=== PATIENT | female | born 1950 | race African-American/Black ===

== ENCOUNTER 2017-01-27 19:45 | Inpatient (IN) | payer MEDICARE, MEDICAID ==
[~2017-01-27] VITALS: Ht 165.1 cm; Wt 99.8 kg
[~2017-01-27 19:45] MED LIST: ASPIR 8181 MG ORAL; BENADRYL50 MG ORAL; CYCLOBENZAPRINE10 MG ORAL; DOCUSATE SODIU100 M2 ORAL; FLONASE1 SPRAYS NASAL; GABAPENTIN600 MG ORAL; GLIMEPIRIDE1 MG ORAL; HYDROCHLOROTHIA25 MG ORAL; LIPITOR40 MG ORAL; LISINOPRIL5 MG ORAL; METFORMIN HCL850 M1 ORAL; NAPROXEN500 M2 ORAL; NIFEDIPINE ER30 M2 ORAL; NORCO 10/3251 EA ORAL; OMEPRAZOLE40 M1 ORAL; QVAR7.3 GM INH
[2017-01-27] MEDS ORDERED: Morphine Sulfate 4mg/ml Inj IVP ONE (21:00)
[2017-01-27 21:47] VITALS: BP 173/77
[2017-01-27 22:28] LABS: MEAN CORPUSCULAR HEMOGLOBIN 27.9 PG (27.0-31.0); MEAN CORPUSCULAR HGB CONC 32.1 G/DL (32.0-36.0); MEAN CORPUSCULAR VOLUME 87 FL (80-99); RED BLOOD COUNT 4.95 M/UL (4.20-5.40); WHITE BLOOD COUNT 10.9 K/UL (4.8-10.8)
[2017-01-27 22:29] LABS: BASOPHILS % (AUTO) 1.4 % (0.0-2.0); EOSINOPHILS % (AUTO) 0.8 % (0.0-3.0); LYMPHOCYTES % (AUTO) 21.2 % (20.0-45.0); MEAN PLATELET VOLUME 8.6 FL (6.5-10.1); MONOCYTES % (AUTO) 6.7 % (1.0-10.0); PLATELET COUNT 227 K/UL (150-450); RED CELL DISTRIBUTION WIDTH 13.7 % (11.6-14.8)
[2017-01-27 22:30] VITALS: BP 166/76
[2017-01-27 22:40] LABS: APPEARANCE,URINE CLEAR; KETONES,URINE NEGATIVE (NEGATIVE); LEUKOCYTE ESTERASE ,URINE 1+ (NEGATIVE); NITRITE,URINE NEGATIVE (NEGATIVE); PH,URINE 6 (4.5-8.0); PROTEIN,URINE NEGATIVE (NEGATIVE); UROBILINOGEN,URINE NORMAL MG/DL (0.0-1.0)
[2017-01-27 22:42] LABS: SQUAMOUS EPITHELIAL CELL,UR OCCASIONAL /LPF (NONE/OCC); WBC,URINE 0 /HPF (0 - 2)
[2017-01-27 22:59] LABS: TROPONIN I < 0.30 ng/mL (<=0.30)
[2017-01-27 23:04] LABS: ALBUMIN/GLOBULIN RATIO 1.1 (1.0-2.7); CALCIUM 10.3 mg/dL (8.6-10.2); CREATININE 1.5 mg/dL (0.5-0.9); GLOMERULAR FILTRATION RATE 42.1 mL/min (>60); POTASSIUM 4.1 mEQ/L (3.4-4.9); TOTAL PROTEIN 8.1 g/dL (6.6-8.7)
[2017-01-28] VITALS (7 sets, daily range): BP systolic 124–167; BP diastolic 59–91
[2017-01-28] MEDS ORDERED: Morphine Sulfate 4mg/ml Inj IVP ONE (01:00)
--- NOTE | 2017-01-28 02:47 | Emergency Room Report ---
History of Present Illness General Chief Complaint: Abdominal Pain Source: Patient Present Illness HPI 66-year-old female presents ED complaining of abdominal pain. States symptoms started earlier today. Pain is on the left flank, radiating to the lower abdomen. Denies any dysuria or and fevers chills. Denies nausea or vomiting. Pain is sharp. 10 out of 10. No other aggravating relieving factors. Denies any other systemic symptom Allergies: Coded Allergies: DIAZEPAM (Verified Allergy, Mild, Itching, 10/28/15) DOBUTAMINE (Verified Allergy, Unknown, 10/28/15) Patient History Past Medical History: DM, asthma Past Surgical History: none Pertinent Family History: none Social History: Denies: alcohol use, drug use, smoking Now: No Immunizations: UTD Reviewed Nursing Documentation: PMH: Agreed, PSxH: Agreed Nursing Documentation-PMH Hx Cardiac Problems: No Hx Hypertension: Yes - hyperlipidemia Hx Asthma: Yes Hx Diabetes: Yes Hx Cancer: No Hx Gastrointestinal Problems: Yes Hx Neurological Problems: No Review of Systems All Other Systems: negative except mentioned in HPI Physical Exam Vital Signs Date Time Temp Pulse Resp B/P Pulse Ox O2 Delivery O2 Flow Rate FiO2 01/27/17 20:38 98.8 94 19 178/85 96 Room Air 01/28/17 00:30 2.0 Sp02 EP Interpretation: reviewed, normal General Appearance: no apparent distress, alert, GCS 15, non-toxic, obese Head: normocephalic, atraumatic Eyes: bilateral eye PERRL, bilateral eye normal inspection ENT: hearing grossly normal, normal pharynx, no angioedema, normal voice Neck: full range of motion, supple/symm/no masses Respiratory: chest non-tender, lungs clear, normal breath sounds, speaking full sentences Cardiovascular #1: regular rate, rhythm, no edema Cardiovascular #2: 2+ carotid (R), 2+ carotid (L), 2+ radial (R), 2+ radial (L) , 2+ dorsalis pedis (R), 2+ dorsalis pedis (L) Gastrointestinal: normal bowel sounds, soft, non-distended, no guarding, no rebound, tenderness Rectal: deferred Genitourinary: normal inspection, CVA tenderness (L) Musculoskeletal: back normal, gait/station normal, normal range of motion, non- tender Neurologic: alert, oriented x3, responsive, motor strength/tone normal, sensory intact, speech normal Psychiatric: judgement/insight normal, memory normal, mood/affect normal, no suicidal/homicidal ideation Reflexes: 3+ bicep (R), 3+ bicep (L), 3+ tricep (R), 3+ tricep (L), 3+ knee (R) , 3+ knee (L) Skin: normal color, no rash, warm/dry, well hydrated Lymphatic: no adenopathy Medical Decision Making Diagnostic Impression: Primary Impression: Kidney stone on left side Additional Impression: ARF (acute renal failure) Qualified Codes: N17.9 - Acute kidney failure, unspecified ER Course Hospital Course 66-year-old F presents to ED with L flank pain Differential diagnosis includes-appendicitis, cholecystitis, kidney stone, pyelonephritis Clinical course Patient placed on stretcher. After initial history and physical I ordered labs , IV fluids, pain medications and CT scan Labs - noted leukocytosis, Cr 1.5, LFTs normal CT scan shows 9mm stone on L with hydronephrosis/perinephric stranding Given pain meds, IVFs. patient admitted to Dr Daniel I feel this is a highly complex case requiring extensive working including EKG/ Rhythm strip, Xray/CT/US, Blood/urine lab work, repeat exams while in ED, and administration of strong opiates/narcotics for pain control, admission to hospital or close patient follow up. Diagnosis - kidney stone on left side. ARF admitted to floor in serious condition Labs Test 01/27/17 21:55 01/27/17 21:58 White Blood Count 10.9 K/UL (4.8-10.8) Red Blood Count 4.95 M/UL (4.20-5.40) Hemoglobin 13.8 G/DL (12.0-16.0) Hematocrit 43.1 % (37.0-47.0) Mean Corpuscular Volume 87 FL (80-99) Mean Corpuscular Hemoglobin 27.9 PG (27.0-31.0) Mean Corpuscular Hemoglobin Concent 32.1 G/DL (32.0-36.0) Red Cell Distribution Width 13.7 % (11.6-14.8) Platelet Count 227 K/UL (150-450) Mean Platelet Volume 8.6 FL (6.5-10.1) Neutrophils (%) (Auto) 70.0 % (45.0-75.0) Lymphocytes (%) (Auto) 21.2 % (20.0-45.0) Monocytes (%) (Auto) 6.7 % (1.0-10.0) Eosinophils (%) (Auto) 0.8 % (0.0-3.0) Basophils (%) (Auto) 1.4 % (0.0-2.0) Sodium Level 139 mEQ/L (135-145) Potassium Level 4.1 mEQ/L (3.4-4.9) Chloride Level 95 mEQ/L (98-107) Carbon Dioxide Level 26 mEQ/L (20-30) Anion Gap 18 (5-15) Blood Urea Nitrogen 15 mg/dL (7-23) Creatinine 1.5 mg/dL (0.5-0.9) Estimat Glomerular Filtration Rate 42.1 mL/min (>60) Glucose Level 99 mg/dL (74-106) Calcium Level 10.3 mg/dL (8.6-10.2) Total Bilirubin 0.5 mg/dL (0.0-1.2) Aspartate Amino Transf (AST/SGOT) 16 U/L (5-40) Alanine Aminotransferase (ALT/SGPT) 14 U/L (3-33) Alkaline Phosphatase 63 U/L (35-104) Troponin I < 0.30 ng/mL (<=0.30) Total Protein 8.1 g/dL (6.6-8.7) Albumin 4.3 g/dL (3.5-5.2) Globulin 3.8 g/dL Albumin/Globulin Ratio 1.1 (1.0-2.7) Lipase 24 U/L (< 60) Urine Color Yellow Urine Appearance Clear Urine pH 6 (4.5-8.0) Urine Specific [place] 1.010 (1.005-1.035) Urine Protein Negative (NEGATIVE) Urine Glucose (UA) Negative (NEGATIVE) Urine Ketones Negative (NEGATIVE) Urine Occult Blood 2+ (NEGATIVE) Urine Nitrite Negative (NEGATIVE) Urine Bilirubin Negative (NEGATIVE) Urine Urobilinogen Normal MG/DL (0.0-1.0) Urine Leukocyte Esterase 1+ (NEGATIVE) Urine RBC 2-4 /HPF (0 - 2) Urine WBC 0 /HPF (0 - 2) Urine Squamous Epithelial Cells Occasional /LPF Urine Bacteria None /HPF (NONE) CT/MRI/US Diagnostic Results CT/MRI/US Diagnostic Results : Imaging Test Ordered: CT A/P Impression Moderate left-sided hydronephrosis and perinephric stranding. A 9 mm stone is seen at the left UPJ Last Vital Signs Date Time Temp Pulse Resp B/P Pulse Ox O2 Delivery O2 Flow Rate FiO2 01/28/17 01:31 98.7 01/28/17 00:30 93 15 153/59 98 Nasal Cannula 2.0 Status: improved Disposition: ADMITTED INPATIENT Condition: Serious Referrals: OCTAVIO KAHN (PCP) BENJA MERCEDES M.D. Jan 28, 2017 02:47
[2017-01-28] MEDS ORDERED: 1/2NS w/KCl 20mEq 1000ml 1,000 ML IV SCH (05:30)
[2017-01-28] MEDS ORDERED: Acetaminophen 500mg (ES) tab ORAL PRN (05:30)
[2017-01-28] MEDS: Glimepiride 1mg tab ORAL SCH (06:15)
[2017-01-28] MEDS: Norco 10mg/325mg tab ORAL PRN ×3 (06:55→19:19)
[2017-01-28] MEDS ORDERED: Potassium Chloride 30 MEQ in 1/2 NS 1000ml 1,000 ML IV SCH (07:30)
[2017-01-28] MEDS: Potassium Chloride 30 MEQ in 1/2 NS 1000ml 1,000 ML IV SCH ×2 (07:49→23:05)
[2017-01-28] MEDS ORDERED: Aspirin EC 325mg tab ORAL SCH (09:00)
[2017-01-28] MEDS: Flonase Nasal Inhaler 16gm NASAL SCH (09:00)
[2017-01-28] MEDS ORDERED: Flonase Nasal Inhaler 16gm NASAL SCH (09:00)
[2017-01-28] MEDS: Docusate 100mg tablet ORAL SCH (09:08)
[2017-01-28] MEDS: Lisinopril 2.5mg tab ORAL SCH (09:09)
[2017-01-28] MEDS: Heparin 5000 units/ml inj SUBQ SCH ×2 (09:14→20:06)
--- NOTE | 2017-01-28 12:01 | Diagnostic Imaging Report ---
Indication: Abdominal pain Technique: Spiral acquisitions obtained through the abdomen and pelvis. No oral contrast utilized, per emergency room physician request No IV contrast utilized, per referring physician request.. Multiplanar reconstructions were generated. Total dose length product 993 mGycm. CTDIvol(s) 18 mGy Comparison: None Findings: There is a left hip prosthesis, streak artifact from which could obscure pathology in the pelvis. Exam is limited by lack of oral and IV contrast. There is a 9 mm calculus at the left ureteropelvic junction. There is resultant mild to moderate left hydronephrosis and slight infiltration of the perinephric fat. Multiple intrarenal calculi are also demonstrated, largest having a long axis dimension of 12 mm. The distal left ureter is nondilated, and no distal intraureteral calculi are demonstrated. There are small calculi within the right kidney is well, measuring up to 3 mm diameter. No right hydronephrosis, ureteral calculi, or hydroureter. Lack of IV contrast limits assessment of the renal parenchyma. No gross renal parenchymal mass or cyst demonstrated. The bladder is unremarkable. Lack of IV contrast limits assessment of solid organs. The liver is mildly hypoattenuating, consistent with fatty change. No focal abnormality. The gallbladder is surgically absent. Bile ducts are nondilated. The pancreas, spleen, adrenals are unremarkable. No retroperitoneal or mesenteric mass or adenopathy. The uterus is diffusely bulky, likely representing fibroid changes. No pelvic mass or adenopathy otherwise. No evidence of diverticulosis or diverticulitis. The appendix is not definitely visualized, but there are no findings to suggest acute appendicitis. No small bowel distention. There is a broad-based ventral hernia. There is some scarring along an incision to the umbilicus. There is a small sliding-type hiatal hernia. Broad-based ventral hernia, associated incisional scarring Small sliding-type hiatal hernia the graft at the left lung base, there is a 9 mm nodule which is incompletely visualized. There are atelectatic changes at both lung bases. The heart is enlarged. There is a small pericardial effusion Impression: Positive for 9 mm left ureteropelvic junction calculus, with resultant mild/moderate hydronephrosis and swelling of the left kidney Bilateral intrarenal calculi, larger on the left than on the right 9 mm left lung nodule, incompletely imaged. Recommend followup with chest CT Cardiomegaly Pericardial effusion Fatty liver Left hip prosthesis Bilateral basilar pulmonary parenchymal atelectatic changes Evidence of prior cholecystectomy Fibroid uterus This agrees with the preliminary interpretation provided overnight by [facility] teleradiology service. The CT scanner at [facility] is accredited by the [employer] and the scans are performed using protocols designed to limit radiation exposure to as low as reasonably achievable to attain images of sufficient resolution adequate for diagnostic evaluation.
--- NOTE | 2017-01-28 22:28 | History and Physical Report ---
DATE OF ADMISSION: 01/28/2017 CHIEF COMPLAINT: Abdominal pain. HISTORY OF PRESENT ILLNESS: This is a 66-year-old, female, who came to the ER complaining of severe abdominal pain. PAST MEDICAL HISTORY: 1. Type 2 diabetes mellitus. 2. Chronic obstructive pulmonary disease. 3. Chronic low back pain. 4. Peripheral neuropathy. 5. Hypertensive cardiovascular disease. 6. Left lung nodule. MEDICATIONS: She is on baby aspirin, atorvastatin, beclomethasone, sodium docusate, fluticasone spray, Neurontin, glimepiride, hydrochlorothiazide, [place], lisinopril, nifedipine ER, and omeprazole. ALLERGIES: To diazepam and dobutamine. FAMILY HISTORY: Unremarkable. SOCIAL HISTORY: She lives at home. Habits, she is nonsmoker and nondrinker. There is no history of illicit drug abuse. REVIEW OF SYSTEMS: HEENT: Hearing and eyesight are normal. Endocrine: She has obesity and type 2 diabetes mellitus. Respiratory: She has chronic obstructive pulmonary disease. Neurological: No history of stroke, syncope, or Parkinson disease. PHYSICAL EXAMINATION: GENERAL: This is an elderly obese, female, who is in no acute distress. VITAL SIGNS: Blood pressure 148/60, pulse 87 and regular, respirations 20, temperature 96.8 degrees, O2 saturation 94% on room air. HEENT: The head is normocephalic and atraumatic. Pupils are equal, round, and reactive to light and accommodation consensually. NECK: Supple. Trachea is midline. There was no lymphadenopathy or thyromegaly. LUNGS: Clear to auscultation and percussion. HEART: Regular rate and rhythm without rubs, murmurs, or gallops. ABDOMEN: Soft. Bowel sounds are active. EXTREMITIES: No clubbing, cyanosis, or edema. NEUROLOGIC: She is alert and oriented x4. Cranial nerves II through XII are intact. LABORATORY AND ANCILLARY DATA: CBC within normal limits. Serum chemistry, creatinine 1.5, BUN 15, otherwise within normal limits and glucose is 99. IMAGING STUDIES: A CAT scan of the abdomen and pelvis without contrast shows a 9 mm left ureteropelvic junction calculus with mild to moderate hydronephrosis and swelling of the left kidney, bilateral intrarenal calculi largely on the left than on the right, 9 mm left lung nodule incompletely , cardiomegaly, pericardial effusion, fatty liver, and left hip prosthesis. ASSESSMENT: 1. Left renal calculus with mild hydronephrosis. 2. Type 2 diabetes mellitus. 3. Chronic obstructive pulmonary disease. 4. Chronic low back pain. 5. Peripheral neuropathy. 6. Hypertensive cardiovascular disease. 7. Left lung nodule. PLAN: 1. Intravenous fluid. 2. Rehydration. 3. Pain control. 4. Urology consult. Nieves Nielsen M.D. DR: REYNALDO JOB#: [id number] CC:
[2017-01-28] MEDS: Qvar 40mcg Inhaler 6.8 gm INH SCH (22:39)
[2017-01-28] MEDS: Budesonide HHN 0.25mg/2ml ud HHN SCH (22:53)
[2017-01-28 23:53] LABS: APPEARANCE,URINE CLEAR; KETONES,URINE NEGATIVE (NEGATIVE); NITRITE,URINE NEGATIVE (NEGATIVE); PH,URINE 6 (4.5-8.0); PROTEIN,URINE NEGATIVE (NEGATIVE); UROBILINOGEN,URINE NORMAL MG/DL (0.0-1.0)
[2017-01-29] MEDS: Norco 10mg/325mg tab ORAL PRN ×5 (00:08→23:59)
[2017-01-29 00:20] LABS: LEUKOCYTE ESTERASE ,URINE 2+ (NEGATIVE)
[2017-01-29 00:26] LABS: BACTERIA,URINE MODERATE /HPF; RBC,URINE 0-2 /HPF (0 - 2); SQUAMOUS EPITHELIAL CELL,UR FEW /LPF (NONE/OCC)
[2017-01-29 00:35] VITALS: BP 137/74
--- NOTE | 2017-01-29 02:38 | Consultation ---
DATE OF CONSULTATION: 01/28/2017 CONSULTING PHYSICIAN: Aly Perez M.D. REFERRING PHYSICIAN: Nieves Nielsen M.D. REASON FOR CONSULTATION: For evaluation of renal colic, obstructive stone, and bladder tumor. HISTORY OF PRESENT ILLNESS: This is a 66-year-old female. She came to the hospital because of left-sided abdominal pain. She had a workup including a CT scan, which showed evidence of an obstructive stone in the left proximal ureter with hydronephrosis. Urology evaluation is requested. Of note, she does have a urologist that she sees as an outpatient and apparently a recent cystoscopy in the office revealed possible tumor in the bladder. The patient states that she is scheduled for a bladder biopsy in the near future. PAST MEDICAL HISTORY: Significant for history of nephrolithiasis, history of hyperlipidemia, asthma, diabetes, and gastroesophageal reflux disease. PAST SURGICAL HISTORY: Unknown. CURRENT MEDICATIONS: In the hospital, the patient is on Pulmicort, heparin, aspirin, Lipitor, Colace, Neurontin, hydrochlorothiazide, Zestril, Procardia, Flonase, Amaryl, acetaminophen, Dilaudid, and Zofran. ALLERGIES: Diazepam and dobutamine. SOCIAL HISTORY: She is currently nonsmoker. FAMILY HISTORY: Noncontributory. REVIEW OF SYSTEMS: As above. PHYSICAL EXAMINATION: GENERAL: This is an elderly female, obese, in mild distress. VITAL SIGNS: Temperature is 96.1 degrees, blood pressure is 124/77, pulse 70, and respirations are 19. HEENT: Normocephalic. She is missing multiple teeth. NECK: Supple. ABDOMEN: Soft. BACK: No CVA tenderness. EXTREMITIES: No clubbing or cyanosis. LABORATORY DATA: UA shows 2 to 4 RBCs, white count 10.9, hemoglobin 13.8, and platelets are 227,000. BUN is 15, creatinine 1.1, and potassium 4.1. DIAGNOSTIC IMAGING STUDIES: The patient has CT scan of the abdomen and pelvis. The films were reviewed. There was basically a 9 mm left ureteropelvic junction stone with [id number] left-sided hydronephrosis. There were also multiple other bilateral renal calculi, which were larger on the left side. There was mention of a lung nodule. The bladder was reported to be normal. IMPRESSION: 1. Nephrolithiasis with colic. 2. Left-sided hydronephrosis. 3. Mild acute kidney injury. 4. Hematuria. 5. History of bladder tumor. PLAN AND DISCUSSION: Again as noted above, the patient does have significant renal colic on the left side with an obstructive stone and hydronephrosis. The stone is very large size and I do not believe she will pass the stone. I believe she will need to have placement of a stent with lithotripsy in the near future. She also has a history of bladder tumor and I will discuss this with her outside urologist, . She probably needs to have a bladder biopsy. At this time, I will discontinue the aspirin so that we will be ready for the surgery if needed. She states that she has not been taking aspirin at home for about a week or so also. I will follow the patient and any other recommendation will be forthcoming. Thank you, Dr. Nielsen, for asking me to see this patient in consultation. Aly Perez M.D. DR: Jason JOB#: [id number] CC:
[2017-01-29 04:00] VITALS: BP 148/76
[2017-01-29] MEDS: Glimepiride 1mg tab ORAL SCH (06:04)
[2017-01-29 07:44] LABS: CALCIUM 10.1 mg/dL (8.6-10.2); CREATININE 1.6 mg/dL (0.5-0.9); GLOMERULAR FILTRATION RATE 38.9 mL/min (>60); POTASSIUM 3.8 mEQ/L (3.4-4.9); URIC ACID 7.1 mg/dL (3.0-7.5)
[2017-01-29 07:53] VITALS: BP 127/77
[2017-01-29] MEDS: Flonase Nasal Inhaler 16gm NASAL SCH (09:00)
[2017-01-29] MEDS: Heparin 5000 units/ml inj SUBQ SCH ×2 (09:00→20:28)
[2017-01-29] MEDS: Docusate 100mg tablet ORAL SCH (09:10)
[2017-01-29] MEDS: Lisinopril 2.5mg tab ORAL SCH (09:11)
[2017-01-29] MEDS: Budesonide HHN 0.25mg/2ml ud HHN SCH ×2 (09:22→19:42)
--- NOTE | 2017-01-29 09:26 | Anethesia Preoperative Eval ---
Anesthesia Pre-op PMH/ROS General Date of Evaluation: Jan 29, 2017 Time of Evaluation: 09:00 Anesthesiologist: Johnnie ASA Score: ASA 3 Mallampati Score Class I : Soft palate, uvula, fauces, pillars visible Class II: Soft palate, uvula, fauces visible Class III: Soft palate, base of uvula visible Class IV: Only hard plate visible Mallampati Classification: Class II Surgeon: Ana Diagnosis: right ureteral stone Surgical Procedure: Right cystoscopy, ureteroscopy, stent placement Anesthesia History: none Family History: no anesthesia problems Allergies: Coded Allergies: DIAZEPAM (Verified Allergy, Mild, Itching, 10/28/15) DOBUTAMINE (Verified Allergy, Unknown, 10/28/15) Medications: see eMAR Past Medical History Cardiovascular: Reports: HTN, other - HLD Pulmonary: Reports: COPD, asthma Gastrointestinal/Genitourinary: Reports: CRI, GERD Endocrine: Reports: DM Musculoskeletal/Integumentary: Reports: OA Other: obesity PSxH Narrative: hiatal hernia repair, left hip arthroplasty, thyroidectomy Anesthesia Pre-op Phys. Exam Physician Exam Last Vital Signs Date Time Temp Pulse Resp B/P Pulse Ox O2 Delivery O2 Flow Rate FiO2 01/29/17 09:11 127/77 01/29/17 09:10 77 01/29/17 07:53 97.3 20 98 Room Air 01/28/17 22:57 2.0 Constitutional: NAD Cardiovascular: RRR Respiratory: CTA Airway Exam Mallampati Score: Class II Anesthesia Pre-op A/P Labs Chemistry Test 01/29/17 05:45 Sodium Level 138 mEQ/L (135-145) Potassium Level 3.8 mEQ/L (3.4-4.9) Chloride Level 95 mEQ/L (98-107) L Carbon Dioxide Level 26 mEQ/L (20-30) Anion Gap 17 (5-15) H Blood Urea Nitrogen 19 mg/dL (7-23) Creatinine 1.6 mg/dL (0.5-0.9) H Estimat Glomerular Filtration Rate 38.9 mL/min (>60) Glucose Level 107 mg/dL (74-106) H Uric Acid 7.1 mg/dL (3.0-7.5) Calcium Level 10.1 mg/dL (8.6-10.2) Studies Pre-op Studies: EKG - pending Risk Assessment & Plan Assessment: ASA III Plan: GA Status Change Before Surgery: No Pre-Antibiotics Drug: ROSS KAT M.D. Jan 29, 2017 09:26
--- NOTE | 2017-01-29 10:40 | Urology Progress Note ---
Assessment/Plan Assessment/Plan 1. Nephrolithiasis with colic. 2. Left-sided hydronephrosis. 3. Mild acute kidney injury. 4. Hematuria. 5. History of bladder tumor. d/w pt fully unlikely to pass stone plan cysto/stent/litho tomorrow risks etc pt may need multiple procedures given heavy stone burden NPO post midnight Subjective Allergies: Coded Allergies: DIAZEPAM (Verified Allergy, Mild, Itching, 10/28/15) DOBUTAMINE (Verified Allergy, Unknown, 10/28/15) Subjective all noted, feels fair, still with pain, case was d/w Dr. Hutchison, very small bladder lesion with recent cysto Objective Last 24 Hour Vital Signs Date Time Temp Pulse Resp B/P Pulse Ox O2 Delivery O2 Flow Rate FiO2 01/29/17 10:27 97.3 01/29/17 09:32 75 18 99 Nasal Cannula 2.0 01/29/17 09:22 72 18 92 Nasal Cannula 2.0 28 01/29/17 09:11 127/77 01/29/17 09:10 77 127/77 01/29/17 08:09 Nasal Cannula 2.0 28 01/29/17 08:09 92 Nasal Cannula 2.0 28 01/29/17 08:09 72 18 Nasal Cannula 2.0 28 01/29/17 07:53 97.3 77 20 127/77 98 Room Air 01/29/17 06:03 97.5 01/29/17 04:00 97.9 84 19 148/76 97 Nasal Cannula 01/29/17 00:35 97.5 73 19 137/74 92 Nasal Cannula 01/28/17 22:57 Nasal Cannula 2.0 01/28/17 22:56 97 Nasal Cannula 2.0 01/28/17 22:52 72 18 99 Nasal Cannula 2.0 01/28/17 22:51 70 18 95 Nasal Cannula 2.0 01/28/17 22:44 Room Air 01/28/17 22:42 81 18 95 Room Air 01/28/17 22:41 85 18 Room Air 01/28/17 20:00 97.9 86 19 148/80 94 Room Air 01/28/17 15:58 96.1 70 19 124/77 96 Nasal Cannula 2.0 01/28/17 12:40 96.8 87 19 148/68 94 Room Air Intake and Output 01/28/17 01/29/17 19:00 07:00 Intake Total 360 ml 695 ml Output Total 320 ml Balance 40 ml 695 ml Intake Oral 360 ml 240 ml IV Total 455 ml Output Urine Total 320 ml # Voids 2 4 Current Medications Medications (Trade) Dose Ordered Sig/Adrien Route PRN Reason Start Time Stop Time Status Last Admin Dose Admin Acetaminophen (Tylenol) 500 mg Q6H PRN ORAL Mild Pain/Temp > 100.5 01/28/17 05:30 02/27/17 05:29 Acetaminophen/ Hydrocodone Bitart ([place] 10/325) 1 ea Q4H PRN ORAL For Pain 01/28/17 05:30 02/04/17 05:29 01/29/17 04:58 Albuterol Sulfate (Proventil) 2.5 mg Q4HRT N 01/29/17 11:00 02/03/17 10:59 Atorvastatin Calcium (Lipitor) 40 mg DAILY ORAL 01/28/17 09:00 02/27/17 08:59 01/29/17 09:10 Beclomethasone Dipropionate (Qvar 40 Inhaler) 1 puff BEDTIME INH 01/28/17 21:00 02/27/17 20:59 Budesonide (Pulmicort) 0.25 mg EVERY 12 HOURS N 01/28/17 21:00 02/27/17 20:59 01/29/17 09:22 Docusate Sodium (Colace) 100 mg DAILY ORAL 01/28/17 09:00 02/27/17 08:59 01/29/17 09:10 Fluticasone Propionate 1 spray 1 spray DAILY NASAL 01/28/17 09:00 02/27/17 08:59 Gabapentin (Neurontin) 600 mg THREE TIMES A DAY ORAL 01/28/17 09:00 02/27/17 08:59 01/29/17 09:11 Glimepiride (Amaryl) 1 mg BEFORE BREAKFAST ORAL 01/28/17 06:30 02/27/17 06:29 01/29/17 06:04 Heparin Sodium (Porcine) (Heparin 5000 units/ml) 5,000 units EVERY 12 HOURS SUBQ 01/28/17 09:00 02/27/17 08:59 01/28/17 20:06 Hydrochlorothiazide (Hydrodiuril) 25 mg DAILY ORAL 01/28/17 09:00 02/27/17 08:59 01/29/17 09:11 Hydromorphone HCl (Dilaudid) 1 mg Q6H PRN IVP Severe Pain (Pain Scale 7-10) 01/28/17 05:30 02/04/17 05:29 Lisinopril (Zestril) 5 mg DAILY ORAL 01/28/17 09:00 02/27/17 08:59 01/29/17 09:11 Nifedipine (Procardia XL) 30 mg DAILY ORAL 01/28/17 09:00 02/27/17 08:59 01/29/17 09:10 Ondansetron HCl (Zofran) 4 mg Q6H PRN IVP Nausea & Vomiting 01/28/17 05:30 02/27/17 05:29 Potassium Chloride/Sodium Chloride (KCl/0.45% NS 1000ml) 1,015 ml @ 65 mls/hr [id number] IV 01/28/17 08:00 02/27/17 07:59 01/28/17 23:05 Laboratory Tests 01/28/17 21:00: Urine Color Pale yellow, Urine Appearance Clear, Urine pH 6, Urine Specific [place] 1.010, Urine Protein Negative, Urine Glucose (UA) Negative, Urine Ketones Negative, Urine Occult Blood 1+H, Urine Nitrite Negative, Urine Bilirubin Negative, Urine Urobilinogen Normal, Urine Leukocyte Esterase 2+H, Urine RBC 0-2, Urine WBC 10-15H, Urine Squamous Epithelial Cells Few, Urine Bacteria ModerateH 01/29/17 05:45: Sodium Level 138, Potassium Level 3.8, Chloride Level 95L, Carbon Dioxide Level 26, Anion Gap 17H, Blood Urea Nitrogen 19, Creatinine 1.6H, Estimat Glomerular Filtration Rate 38.9, Glucose Level 107H, Uric Acid 7.1, Calcium Level 10.1 Height (Feet): 5 Height (Inches): 5.00 Weight (Pounds): 222 SANYA PIERSON Jan 29, 2017 10:40
[2017-01-29] MEDS: Albuterol ud Inhalation HHN SCH ×4 (10:50→23:23)
--- NOTE | 2017-01-29 10:52 | Diagnostic Imaging Report ---
Indication: Cough Technique: One view of the chest Comparison: none Findings: The heart is enlarged. Atelectasis and possibly some consolidation is seen in the left lower lobe. Pleural spaces are clear. Right lung is clear. Impression: Left lower lobe atelectasis and possibly some consolidation. Cardiomegaly
[2017-01-29 12:22] VITALS: BP 137/73
--- NOTE | 2017-01-29 14:07 | Nephrology Progress Note ---
Assessment/Plan Plan L RenaL Colic -for Cysto in AM By Dr Perez. Symptoms Resolving with IVF + Pain Control Subjective Subjective No new c/o Objective Objective Last 24 Hour Vital Signs Date Time Temp Pulse Resp B/P Pulse Ox O2 Delivery O2 Flow Rate FiO2 01/29/17 13:51 97.9 01/29/17 13:51 97.9 01/29/17 12:22 97.9 77 19 137/73 95 Room Air 01/29/17 11:05 85 18 99 Nasal Cannula 2.0 28 01/29/17 10:55 83 18 95 Room Air 01/29/17 10:55 28 01/29/17 09:32 75 18 99 Nasal Cannula 2.0 01/29/17 09:22 72 18 92 Nasal Cannula 2.0 28 01/29/17 09:11 127/77 01/29/17 09:10 77 127/77 01/29/17 08:09 Nasal Cannula 2.0 28 01/29/17 08:09 92 Nasal Cannula 2.0 28 01/29/17 08:09 72 18 Nasal Cannula 2.0 28 01/29/17 07:53 97.3 77 20 127/77 98 Room Air 01/29/17 04:00 97.9 84 19 148/76 97 Nasal Cannula 01/29/17 00:35 97.5 73 19 137/74 92 Nasal Cannula 01/28/17 22:57 Nasal Cannula 2.0 01/28/17 22:56 97 Nasal Cannula 2.0 01/28/17 22:52 72 18 99 Nasal Cannula 2.0 01/28/17 22:51 70 18 95 Nasal Cannula 2.0 01/28/17 22:44 Room Air 01/28/17 22:42 81 18 95 Room Air 01/28/17 22:41 85 18 Room Air 01/28/17 20:00 97.9 86 19 148/80 94 Room Air 01/28/17 15:58 96.1 70 19 124/77 96 Nasal Cannula 2.0 Intake and Output 01/28/17 01/29/17 19:00 07:00 Intake Total 360 ml 695 ml Output Total 320 ml Balance 40 ml 695 ml Intake Oral 360 ml 240 ml IV Total 455 ml Output Urine Total 320 ml # Voids 2 4 Laboratory Tests 01/28/17 21:00: Urine Color Pale yellow, Urine Appearance Clear, Urine pH 6, Urine Specific [place] 1.010, Urine Protein Negative, Urine Glucose (UA) Negative, Urine Ketones Negative, Urine Occult Blood 1+H, Urine Nitrite Negative, Urine Bilirubin Negative, Urine Urobilinogen Normal, Urine Leukocyte Esterase 2+H, Urine RBC 0-2, Urine WBC 10-15H, Urine Squamous Epithelial Cells Few, Urine Bacteria ModerateH 01/29/17 05:45: Sodium Level 138, Potassium Level 3.8, Chloride Level 95L, Carbon Dioxide Level 26, Anion Gap 17H, Blood Urea Nitrogen 19, Creatinine 1.6H, Estimat Glomerular Filtration Rate 38.9, Glucose Level 107H, Uric Acid 7.1, Calcium Level 10.1 Height (Feet): 5 Height (Inches): 5.00 Weight (Pounds): 222 Objective Cv RR Lungs CTA Abd SNT. BS+ E No CCE OCTAVIO KAHN Jan 29, 2017 14:07
--- NOTE | 2017-01-29 14:28 | Consultation ---
DATE OF CONSULTATION: 01/29/2017 PULMONARY CONSULTATION CONSULTING PHYSICIAN: Isra Conn M.D. REASON FOR CONSULTATION: Asthma/COPD. HISTORY OF PRESENT ILLNESS: This is a 66-year-old female, presented to the emergency room with severe abdominal pain. The patient was noted to have kidney stone, significant obstruction. The patient now under the care of Dr. Nielsen, who has currently evaluated and recommended further. The patient does complain of some shortness of breath, chest tightness and overall discomfort. The patient is well known to me, was recently seen in office. The patient does have multiple medical problems, has had history of PET positive one nodule. The patient has undergone lung biopsy in 2016, which revealed conclusive. The patient also been treated for asthma. She does not complain of any sputum production at this time. No fever or chills. Medical notes have been reviewed. The care discussed with the primary admitting doctor. PAST MEDICAL HISTORY: The patient's past medical history notable for diabetes, anxiety, hypertension, hypercholesterolemia, history of CO, back in 2009, arthritis, chronic pain syndrome, asthma, stress test done in 2011. The patient also has had prior thyroid surgery, appendectomy, tonsillectomy, hernia repair, hip replacement and lung biopsy. SOCIAL HISTORY: The patient is . She lives alone. She did have three children. The patient is a former smoker and none currently. REVIEW OF SYSTEMS: Otherwise negative with the exception of the above. PHYSICAL EXAMINATION: GENERAL: A well developed female, comfortable and alert. The patient with poor dentition and missing teeth. VITAL SIGNS: Temperature 97.3 degrees, pulse 77, respiration 20, blood pressure 127/77 and saturation 98%. HEENT: Overall negative, otherwise oropharynx is clear. No thrush. NECK: No jugular venous distention. LUNGS: Good air entry. No scattered wheezes. CARDIAC: Normal S1 and S2. Regular, rate, and rhythm. Soft systolic murmur, left parasternal border. No rubs or gallops. ABDOMEN: Soft and nontender. No flank tenderness. EXTREMITIES: No cyanosis or clubbing. There is trace edema. NEUROLOGIC: Grossly nonfocal. LABORATORY AND DIAGNOSTIC DATA: Laboratory reviewed. CBC today with normal white cell count of 10.9. Electrolytes, very normal creatinine 1.6, blood sugar is 107. Imaging noted and reviewed. The abdominal CT that was done is notable for 9 mm ureteropelvic junction calculus with hydronephrosis. IMPRESSION: 1. Renal stone with associated hydronephrosis, associated flank pain. 2. Asthma, clinically stable. 3. Mild chest tightness and cough. 4. Chronic rhinitis. 5. Hypercholesterolemia. RECOMMENDATIONS: Medications noted and reviewed. The patient is getting Pulmicort nebulized twice a day, we will give additional albuterol and continue with inhaler, QVAR at bedtime. I will follow clinically and recommend oxygen therapy and assess for operative need. Isra Conn M.D. DR: Errol JOB#: [id number] CC: KENNA
[2017-01-29 16:10] VITALS: BP 128/78
[2017-01-29] MEDS: Potassium Chloride 30 MEQ in 1/2 NS 1000ml 1,000 ML IV SCH (16:15)
[2017-01-29] MEDS: Cefepime HCl 1 GM in D5W 55 ML IVPB SCH (16:15)
[2017-01-29] MEDS: Qvar 40mcg Inhaler 6.8 gm INH SCH (20:02)
[2017-01-29 20:21] VITALS: BP 140/78
[2017-01-29] MEDS: Zolpidem 5mg tab ORAL PRN (21:57)
[2017-01-30] VITALS (14 sets, daily range): BP systolic 114–152; BP diastolic 57–75
[2017-01-30] MEDS: Albuterol ud Inhalation HHN SCH ×5 (02:57→20:03)
[2017-01-30] MEDS: Potassium Chloride 30 MEQ in 1/2 NS 1000ml 1,000 ML IV SCH ×2 (05:41→22:28)
[2017-01-30] MEDS: Norco 10mg/325mg tab ORAL PRN ×2 (05:41→09:33)
[2017-01-30] MEDS: Glimepiride 1mg tab ORAL SCH (06:30)
[2017-01-30] MEDS: Budesonide HHN 0.25mg/2ml ud HHN SCH ×2 (08:11→21:00)
[2017-01-30] MEDS: Heparin 5000 units/ml inj SUBQ SCH (09:00)
[2017-01-30] MEDS: Cefepime HCl 1 GM in D5W 55 ML IVPB SCH (09:27)
[2017-01-30] MEDS: Flonase Nasal Inhaler 16gm NASAL SCH (09:28)
[2017-01-30] MEDS: Docusate 100mg tablet ORAL SCH (09:29)
[2017-01-30] MEDS: Lisinopril 2.5mg tab ORAL SCH (09:30)
--- NOTE | 2017-01-30 11:27 | Urology Progress Note ---
Assessment/Plan Assessment/Plan 1. Nephrolithiasis with colic. 2. Left-sided hydronephrosis. 3. Mild acute kidney injury. 4. Hematuria. 5. History of bladder tumor. d/w pt fully unlikely to pass stone plan cysto/stent/litho today risks etc pt may need multiple procedures given heavy stone burden NPO Subjective Allergies: Coded Allergies: DIAZEPAM (Verified Allergy, Mild, Itching, 10/28/15) DOBUTAMINE (Verified Allergy, Unknown, 10/28/15) Subjective all noted, feels fair, still with pain, plan OR today Objective Last 24 Hour Vital Signs Date Time Temp Pulse Resp B/P Pulse Ox O2 Delivery O2 Flow Rate FiO2 01/30/17 11:17 78 16 95 Nasal Cannula 2.0 28 01/30/17 09:30 134/64 01/30/17 09:29 74 134/64 01/30/17 08:28 86 18 99 Nasal Cannula 2.0 01/30/17 08:19 80 18 98 Nasal Cannula 2.0 28 01/30/17 08:10 97.5 68 18 118/67 95 Nasal Cannula 2.0 01/30/17 08:08 Nasal Cannula 2.0 28 01/30/17 08:08 94 Nasal Cannula 2.0 28 01/30/17 08:08 72 16 94 Nasal Cannula 2.0 28 01/30/17 08:08 72 18 Nasal Cannula 2.0 28 01/30/17 04:00 97.7 74 18 125/65 97 Nasal Cannula 2.0 01/30/17 03:05 79 14 99 Nasal Cannula 2.0 28 01/30/17 02:59 28 01/30/17 02:57 70 16 94 Nasal Cannula 2.0 28 01/30/17 00:00 97.4 71 18 142/60 97 Room Air 01/29/17 23:43 83 18 99 Nasal Cannula 2.0 28 01/29/17 23:23 86 18 96 Nasal Cannula 2.0 28 01/29/17 23:23 28 01/29/17 20:21 98.1 86 18 140/78 93 Room Air 01/29/17 19:48 86 18 99 Nasal Cannula 2.0 01/29/17 19:43 84 18 99 Nasal Cannula 2.0 28 01/29/17 19:42 84 18 99 Nasal Cannula 2.0 28 01/29/17 19:35 28 01/29/17 19:34 83 18 92 Nasal Cannula 2.0 28 01/29/17 19:34 Nasal Cannula 2.0 28 01/29/17 19:34 92 Nasal Cannula 2.0 28 01/29/17 19:32 83 18 Nasal Cannula 2.0 28 01/29/17 16:10 98.1 90 19 128/78 92 Room Air 01/29/17 15:11 85 18 99 Nasal Cannula 2.0 28 01/29/17 15:11 28 01/29/17 15:11 83 18 95 Room Air 01/29/17 13:51 97.9 01/29/17 13:51 97.9 01/29/17 12:22 97.9 77 19 137/73 95 Room Air Intake and Output 01/29/17 01/30/17 19:00 07:00 Intake Total 880 ml 990 ml Balance 880 ml 990 ml Intake Oral 240 ml 240 ml IV Total 640 ml 750 ml # Voids 2 5 Microbiology Date/Time Source Procedure Growth Status 01/28/17 21:00 Urine,Clean Catch Urine Culture - Preliminary Gram Negative Bacillus 1 Resulted Current Medications Medications (Trade) Dose Ordered Sig/Adrien Route PRN Reason Start Time Stop Time Status Last Admin Dose Admin Acetaminophen (Tylenol) 500 mg Q6H PRN ORAL Mild Pain/Temp > 100.5 01/28/17 05:30 02/27/17 05:29 Acetaminophen/ Hydrocodone Bitart ([place] 10/325) 1 ea Q4H PRN ORAL For Pain 01/28/17 05:30 02/04/17 05:29 01/30/17 09:33 Al Hydroxide/Mg Hydroxide (Mylanta) 30 ml TIDPRN PRN ORAL INDIGESTION/DYSPEPSIA 01/29/17 21:30 02/28/17 21:29 01/29/17 21:57 Albuterol Sulfate 2.5 mg 2.5 mg Q4HRT HHN 01/29/17 11:00 02/03/17 10:59 01/30/17 11:17 Atorvastatin Calcium (Lipitor) 40 mg DAILY ORAL 01/28/17 09:00 02/27/17 08:59 01/30/17 09:33 Beclomethasone Dipropionate (Qvar 40 Inhaler) 1 puff BEDTIME INH 01/28/17 21:00 02/27/17 20:59 Budesonide (Pulmicort) 0.25 mg EVERY 12 HOURS HHN 01/28/17 21:00 02/27/17 20:59 01/30/17 08:11 Cefepime HCl/ Dextrose (Maxipime/D5W) 55 ml @ 110 mls/hr DAILY IVPB 01/29/17 15:00 02/05/17 14:59 01/30/17 09:27 Docusate Sodium (Colace) 100 mg DAILY ORAL 01/28/17 09:00 02/27/17 08:59 01/30/17 09:29 Fluticasone Propionate 1 spray 1 spray DAILY NASAL 01/28/17 09:00 02/27/17 08:59 01/30/17 09:28 Gabapentin (Neurontin) 600 mg THREE TIMES A DAY ORAL 01/28/17 09:00 02/27/17 08:59 01/30/17 09:29 Glimepiride (Amaryl) 1 mg BEFORE BREAKFAST ORAL 01/28/17 06:30 02/27/17 06:29 01/29/17 06:04 Heparin Sodium (Porcine) (Heparin 5000 units/ml) 5,000 units EVERY 12 HOURS SUBQ 01/28/17 09:00 02/27/17 08:59 01/29/17 20:28 Hydrochlorothiazide (Hydrodiuril) 25 mg DAILY ORAL 01/28/17 09:00 02/27/17 08:59 01/30/17 09:29 Hydromorphone HCl (Dilaudid) 1 mg Q6H PRN IVP Severe Pain (Pain Scale 7-10) 01/28/17 05:30 02/04/17 05:29 Lisinopril (Zestril) 5 mg DAILY ORAL 01/28/17 09:00 02/27/17 08:59 01/30/17 09:30 Nifedipine (Procardia XL) 30 mg DAILY ORAL 01/28/17 09:00 02/27/17 08:59 01/30/17 09:29 Ondansetron HCl (Zofran) 4 mg Q6H PRN IVP Nausea & Vomiting 01/28/17 05:30 02/27/17 05:29 Pantoprazole (Protonix) 40 mg DAILY ORAL 01/30/17 09:00 03/01/17 08:59 01/30/17 09:30 Potassium Chloride/Sodium Chloride (KCl/0.45% NS 1000ml) 1,015 ml @ 65 mls/hr [id number] IV 01/28/17 08:00 02/27/17 07:59 01/30/17 05:41 Zolpidem Tartrate (Ambien) 5 mg HSPRN PRN ORAL Insomnia 01/29/17 21:15 02/28/17 21:14 01/29/17 21:57 Height (Feet): 5 Height (Inches): 5.00 Weight (Pounds): 220 Objective exam stable HILTONSANYA CHAVARRIA Jan 30, 2017 11:27
--- NOTE | 2017-01-30 11:30 | Pre-Procedure Note/Attestation ---
Pre-Procedure Note/Attestation Complete Prior to Procedure Planned Procedure: left Procedure Narrative: cystoscopy, possible bladder biopsy, left ureteroscopy, laser and shockwave lithotripsy, ureteral stent Indications for Procedure Pre-Operative Diagnosis: obstructive left ureteral calculus, hx of bladder lesion Attestation I attest that I discussed the nature of the procedure; its benefits; risks and complications; and alternatives (and the risks and benefits of such alternatives ), prior to the procedure, with the patient (or the patient's legal phone representative). I attest that, if there was a reasonable possibility of needing a blood transfusion, the patient (or the patient's legal phone representative) was given the [place] [employer] standardized written summary, pursuant to the Malachi Ballinger Blood Safety Act ([place] Health and Safety Code # 1645, as amended). I attest that I re-evaluated the patient just prior to the surgery and that there has been no change in the patient's H&P, except as documented below: see progress notes SANYA PIERSON Jan 30, 2017 11:29
[2017-01-30] MEDS ORDERED: Iothalamate Meglumine 60% 30ML INJ ONE (12:58)
[2017-01-30] MEDS ORDERED: Propofol 10mg/ml 20ml IV ONE (12:58)
[2017-01-30] MEDS ORDERED: Zemuron 50mg/5ml Inj IV ONE (12:58)
[2017-01-30] MEDS ORDERED: Succinylcholine 20mg/ml 10ml vial ONE (12:58)
[2017-01-30] MEDS ORDERED: cefOXitin 1gm Inj ONE (12:58)
--- NOTE | 2017-01-30 13:59 | Pulmonology Progress Note ---
Assessment/Plan Assessment/Plan IMPRESSION: 1. Renal stone with associated hydronephrosis, associated flank pain. 2. Asthma, clinically stable. 3. Mild chest tightness and cough. 4. Chronic rhinitis. 5. Hypercholesterolemia. PLAN care noted same RX follow up clinically no change for now monitor as is impression, plan, and exam edited and reviewed in detail care discussed with RN Subjective Allergies: Coded Allergies: DIAZEPAM (Verified Allergy, Mild, Itching, 10/28/15) DOBUTAMINE (Verified Allergy, Unknown, 10/28/15) Subjective care noted and discussed some sob but no congestion Objective Last 24 Hour Vital Signs Date Time Temp Pulse Resp B/P Pulse Ox O2 Delivery O2 Flow Rate FiO2 01/30/17 11:50 97.2 73 18 114/71 94 Nasal Cannula 2.0 01/30/17 11:27 82 14 99 Nasal Cannula 2.0 28 01/30/17 11:17 78 16 95 Nasal Cannula 2.0 28 01/30/17 09:30 134/64 01/30/17 09:29 74 134/64 01/30/17 08:28 86 18 99 Nasal Cannula 2.0 01/30/17 08:19 80 18 98 Nasal Cannula 2.0 28 01/30/17 08:18 76 16 99 Nasal Cannula 2.0 28 01/30/17 08:10 97.5 68 18 118/67 95 Nasal Cannula 2.0 01/30/17 08:08 Nasal Cannula 2.0 28 01/30/17 08:08 94 Nasal Cannula 2.0 28 01/30/17 08:08 72 16 94 Nasal Cannula 2.0 28 01/30/17 08:08 72 18 Nasal Cannula 2.0 28 01/30/17 04:00 97.7 74 18 125/65 97 Nasal Cannula 2.0 01/30/17 03:05 79 14 99 Nasal Cannula 2.0 28 01/30/17 02:59 28 01/30/17 02:57 70 16 94 Nasal Cannula 2.0 28 01/30/17 00:00 97.4 71 18 142/60 97 Room Air 01/29/17 23:43 83 18 99 Nasal Cannula 2.0 28 01/29/17 23:23 86 18 96 Nasal Cannula 2.0 28 01/29/17 23:23 28 01/29/17 20:21 98.1 86 18 140/78 93 Room Air 01/29/17 19:48 86 18 99 Nasal Cannula 2.0 01/29/17 19:43 84 18 99 Nasal Cannula 2.0 28 01/29/17 19:42 84 18 99 Nasal Cannula 2.0 28 01/29/17 19:35 28 01/29/17 19:34 83 18 92 Nasal Cannula 2.0 28 01/29/17 19:34 Nasal Cannula 2.0 28 01/29/17 19:34 92 Nasal Cannula 2.0 28 01/29/17 19:32 83 18 Nasal Cannula 2.0 28 01/29/17 16:10 98.1 90 19 128/78 92 Room Air 01/29/17 15:11 85 18 99 Nasal Cannula 2.0 28 01/29/17 15:11 28 01/29/17 15:11 83 18 95 Room Air Intake and Output 01/29/17 01/30/17 19:00 07:00 Intake Total 880 ml 990 ml Balance 880 ml 990 ml Intake Oral 240 ml 240 ml IV Total 640 ml 750 ml # Voids 2 5 Objective HEENT: Overall negative, otherwise oropharynx is clear. No thrush. NECK: No jugular venous distention. LUNGS: Good air entry. some wheezes. CARDIAC: Normal S1 and S2. Regular, rate, and rhythm. Soft systolic murmur, left parasternal border. No rubs or gallops. ABDOMEN: Soft and nontender. No flank tenderness. EXTREMITIES: No cyanosis or clubbing. There is trace edema. NEUROLOGIC: Grossly nonfocal. Microbiology Date/Time Source Procedure Growth Status 01/28/17 21:00 Urine,Clean Catch Urine Culture - Preliminary Gram Negative Bacillus 1 Resulted Current Medications Medications (Trade) Dose Ordered Sig/Adrien Route PRN Reason Start Time Stop Time Status Last Admin Dose Admin Acetaminophen (Tylenol) 500 mg Q6H PRN ORAL Mild Pain/Temp > 100.5 01/28/17 05:30 02/27/17 05:29 Acetaminophen/ Hydrocodone Bitart ([place] 10/325) 1 ea Q4H PRN ORAL For Pain 01/28/17 05:30 02/04/17 05:29 01/30/17 09:33 Al Hydroxide/Mg Hydroxide (Mylanta) 30 ml TIDPRN PRN ORAL INDIGESTION/DYSPEPSIA 01/29/17 21:30 02/28/17 21:29 01/29/17 21:57 Albuterol Sulfate 2.5 mg 2.5 mg Q4HRT HHN 01/29/17 11:00 02/03/17 10:59 01/30/17 11:17 Atorvastatin Calcium (Lipitor) 40 mg DAILY ORAL 01/28/17 09:00 02/27/17 08:59 01/30/17 09:33 Beclomethasone Dipropionate (Qvar 40 Inhaler) 1 puff BEDTIME INH 01/28/17 21:00 02/27/17 20:59 Budesonide (Pulmicort) 0.25 mg EVERY 12 HOURS HHN 01/28/17 21:00 02/27/17 20:59 01/30/17 08:11 Cefepime HCl/ Dextrose (Maxipime/D5W) 55 ml @ 110 mls/hr DAILY IVPB 01/29/17 15:00 02/05/17 14:59 01/30/17 09:27 Docusate Sodium (Colace) 100 mg DAILY ORAL 01/28/17 09:00 02/27/17 08:59 01/30/17 09:29 Fluticasone Propionate 1 spray 1 spray DAILY NASAL 01/28/17 09:00 02/27/17 08:59 01/30/17 09:28 Gabapentin (Neurontin) 600 mg THREE TIMES A DAY ORAL 01/28/17 09:00 02/27/17 08:59 01/30/17 09:29 Glimepiride (Amaryl) 1 mg BEFORE BREAKFAST ORAL 01/28/17 06:30 02/27/17 06:29 01/29/17 06:04 Heparin Sodium (Porcine) (Heparin 5000 units/ml) 5,000 units EVERY 12 HOURS SUBQ 01/28/17 09:00 02/27/17 08:59 01/29/17 20:28 Hydrochlorothiazide (Hydrodiuril) 25 mg DAILY ORAL 01/28/17 09:00 02/27/17 08:59 01/30/17 09:29 Hydromorphone HCl (Dilaudid) 1 mg Q6H PRN IVP Severe Pain (Pain Scale 7-10) 01/28/17 05:30 02/04/17 05:29 Lisinopril (Zestril) 5 mg DAILY ORAL 01/28/17 09:00 02/27/17 08:59 01/30/17 09:30 Nifedipine (Procardia XL) 30 mg DAILY ORAL 01/28/17 09:00 02/27/17 08:59 01/30/17 09:29 Ondansetron HCl (Zofran) 4 mg Q6H PRN IVP Nausea & Vomiting 01/28/17 05:30 02/27/17 05:29 Pantoprazole (Protonix) 40 mg DAILY ORAL 01/30/17 09:00 03/01/17 08:59 01/30/17 09:30 Potassium Chloride/Sodium Chloride (KCl/0.45% NS 1000ml) 1,015 ml @ 65 mls/hr [id number] IV 01/28/17 08:00 02/27/17 07:59 01/30/17 05:41 Zolpidem Tartrate (Ambien) 5 mg HSPRN PRN ORAL Insomnia 01/29/17 21:15 02/28/17 21:14 01/29/17 21:57 ARIANE MACDONALD Jan 30, 2017 13:59
[2017-01-30] MEDS ORDERED: NS Irrig 4000ml IRRIG ONE ×2 (14:00→14:54)
[2017-01-30] MEDS ORDERED: Midazolam 2mg/2ml Inj ONE (14:00)
[2017-01-30] MEDS ORDERED: fentaNYL 100 mcg/2 mL IV ONE (14:00)
[2017-01-30] MEDS ORDERED: Sterile Water Irrig 1000ml IRRIG ONE (14:00)
[2017-01-30] MEDS ORDERED: Neostigmine 1mg/ml 10ml Inj ONE (14:00)
--- NOTE | 2017-01-30 15:03 | Anethesia Preoperative Eval ---
Anesthesia Pre-op PMH/ROS General Date of Evaluation: Jan 30, 2017 Time of Evaluation: 13:50 Anesthesiologist: Pallavi ASA Score: ASA 3 Mallampati Score Class I : Soft palate, uvula, fauces, pillars visible Class II: Soft palate, uvula, fauces visible Class III: Soft palate, base of uvula visible Class IV: Only hard plate visible Mallampati Classification: Class II Surgeon: Ana Diagnosis: L kidney stones Surgical Procedure: Cysto Retrograde pyelogram Anesthesia History: none Allergies: Coded Allergies: DIAZEPAM (Verified Allergy, Mild, Itching, 10/28/15) DOBUTAMINE (Verified Allergy, Unknown, 10/28/15) Past Medical History Cardiovascular: Reports: CAD, HTN Pulmonary: Reports: COPD, asthma, Denies: PHILIPPE, other Gastrointestinal/Genitourinary: Reports: GERD, other - kidney stones, Denies: CRI, ESRD Neurologic/Psychiatric: Reports: depression/anxiety, Denies: CVA, TIA, dementia, other Endocrine: Reports: DM - stable o pills, Denies: hypothyroidism, other, steroids HEENT: Reports: cataract (L) Hematology/Immune: Reports: anemia Musculoskeletal/Integumentary: Reports: DJD, Denies: DDD, OA, RA, edema, other Other: obesity PMH Narrative: as above PSxH Narrative: cholecystectomy, appendectomy,thyroid, L hip arthroplasty Anesthesia Pre-op Phys. Exam Physician Exam Last Vital Signs Date Time Temp Pulse Resp B/P Pulse Ox O2 Delivery O2 Flow Rate FiO2 01/30/17 11:50 97.2 73 18 114/71 94 Nasal Cannula 2.0 01/30/17 11:27 28 Constitutional: NAD Neurologic: CN 2-12 intact Cardiovascular: RRR, no M/R/G Respiratory: CTA Gastrointestinal: other - obesity Airway Exam Mallampati Score: Class II MO: limited Neck: stiff ROM: limited Teeth: missing Dentures: lower, upper Anesthesia Pre-op A/P Labs see chart Risk Assessment & Plan Assessment: ASA 3 Plan: GA with ETT Status Change Before Surgery: No Pre-Antibiotics Drug: Cefoxitin 1gr. Given Within 1 Hr of Incision: Yes Time Given: 14:25 KWADWO FLAHERTY M.D. Jan 30, 2017 15:03
[2017-01-30] MEDS ORDERED: LR 1000ml 1,000 ML IVLG SCH (15:20)
[2017-01-30] MEDS ORDERED: DiphenhydrAMINE 50mg/ml Inj IVP PRN (15:30)
[2017-01-30] MEDS ORDERED: Midazolam 2mg/2ml Inj IVP PRN (15:30)
[2017-01-30] MEDS ORDERED: Hydromorphone 0.5mg/0.5ml inj IVP PRN (15:30)
--- NOTE | 2017-01-30 16:03 | Brief Operative Note ---
Immediate Post Operative Note Operative Note Pre-op Diagnosis: obstructive left ureteral calculus, hx of bladder lesion Procedure: cystoscopy, left ureteroscopy, laser and shockwave lithotripsy, ureteral stent Post-op Diagnosis: same as pre-op Surgeon: arielle Anesthesiologist: angelo Anesthesia: general Specimen: yes - stone fragment Complications: none Condition: stable Estimated Blood Loss: minimal Implant(s) used?: Yes - 6f x 26 cm left ureteral JJ stent SANYA PIERSON Jan 30, 2017 16:03
--- NOTE | 2017-01-30 16:25 | Immediate Post-Op Evaluation ---
Immediate Post-Op Evalulation Immediate Post-Op Evalulation Procedure: Cysto retrograde pyelogram lithotrypsy Date of Evaluation: Jan 30, 2017 Time of Evaluation: 16:24 IV Fluids: 800 Blood Products: none Estimated Blood Loss: min Urinary Output: n/a Blood Pressure Systolic: 141 Blood Pressure Diastolic: 70 Pulse Rate: 73 Respiratory Rate: 2 O2 Sat by Pulse Oximetry: 94 Temperature (Fahrenheit): 98.3 Pain Score (1-10): 2 Nausea: No Vomiting: No Complications none Patient Status: reacts, patent, extubated, none Hydration Status: adequate KWADWO FLAHERTY M.D. Jan 30, 2017 16:25
[2017-01-30] MEDS: fentaNYL 100 mcg/2 mL IV PRN ×2 (16:50→17:12)
[2017-01-30] MEDS: HYDROmorphone 1mg/ml Carpuject IVP PRN (18:28)
[2017-01-30] MEDS: Qvar 40mcg Inhaler 6.8 gm INH SCH (21:00)
[2017-01-31] VITALS: BP 125/64
[2017-01-31] MEDS: HYDROmorphone 1mg/ml Carpuject IVP PRN (00:35)
[2017-01-31] MEDS: Zolpidem 5mg tab ORAL PRN (02:13)
[2017-01-31] MEDS: Albuterol ud Inhalation HHN SCH ×6 (03:00→19:51)
[2017-01-31 04:00] VITALS: BP 119/59
[2017-01-31] MEDS: Potassium Chloride 30 MEQ in 1/2 NS 1000ml 1,000 ML IV SCH (05:12)
[2017-01-31] MEDS: Norco 10mg/325mg tab ORAL PRN ×4 (05:36→23:34)
[2017-01-31] MEDS: Glimepiride 1mg tab ORAL SCH (05:37)
[2017-01-31 08:00] VITALS: BP 116/74
[2017-01-31] MEDS: Budesonide HHN 0.25mg/2ml ud HHN SCH ×2 (09:10→19:51)
[2017-01-31] MEDS: Docusate 100mg tablet ORAL SCH (09:12)
[2017-01-31] MEDS: Lisinopril 2.5mg tab ORAL SCH (09:13)
[2017-01-31] MEDS: Flonase Nasal Inhaler 16gm NASAL SCH (09:18)
--- NOTE | 2017-01-31 09:25 | Pulmonology Progress Note ---
Assessment/Plan Assessment/Plan IMPRESSION: 1. Renal stone with associated hydronephrosis, associated flank pain. 2. Asthma, clinically stable. 3. Mild chest tightness and cough. 4. Chronic rhinitis. 5. Hypercholesterolemia. PLAN care noted same RX as is follow up clinically no change for now and no other changes noted monitor as is and will adjust if needed impression, plan, and exam edited and reviewed in detail care discussed with RN Subjective Allergies: Coded Allergies: DIAZEPAM (Verified Allergy, Mild, Itching, 10/28/15) DOBUTAMINE (Verified Allergy, Unknown, 10/28/15) Subjective care noted and discussed mild cough Objective Last 24 Hour Vital Signs Date Time Temp Pulse Resp B/P Pulse Ox O2 Delivery O2 Flow Rate FiO2 01/31/17 09:13 116/74 01/31/17 07:22 94 Nasal Cannula 2.0 28 01/31/17 07:22 71 18 94 Nasal Cannula 2.0 28 01/31/17 07:22 71 18 97 Nasal Cannula 2.0 28 01/31/17 07:22 Nasal Cannula 2.0 28 01/31/17 07:22 71 20 Nasal Cannula 2.0 28 01/31/17 06:35 98.6 01/31/17 04:00 98.6 79 18 119/59 01/31/17 03:40 72 16 97 Nasal Cannula 2.0 28 01/31/17 03:30 70 16 94 Nasal Cannula 2.0 28 01/31/17 00:00 98.8 84 20 125/64 94 Nasal Cannula 01/30/17 23:16 74 20 95 Nasal Cannula 2.0 28 01/30/17 23:16 78 20 98 Nasal Cannula 2.0 28 01/30/17 21:30 78 20 96 Nasal Cannula 2.0 28 01/30/17 21:30 81 20 98 Nasal Cannula 2.0 28 01/30/17 20:07 79 20 97 Nasal Cannula 2.0 28 01/30/17 20:06 Nasal Cannula 2.0 28 01/30/17 20:06 77 20 94 Nasal Cannula 2.0 28 01/30/17 20:06 94 Nasal Cannula 2.0 28 01/30/17 20:00 98.2 81 20 132/66 95 Nasal Cannula 2.0 01/30/17 19:30 77 20 Nasal Cannula 2.0 28 01/30/17 17:27 97.8 73 16 150/66 97 Nasal Cannula 2.0 01/30/17 17:15 75 17 147/70 95 Nasal Cannula 2.0 01/30/17 17:10 72 16 152/67 95 Nasal Cannula 2.0 01/30/17 17:00 76 18 135/75 95 Nasal Cannula 2.0 01/30/17 16:50 72 15 135/75 95 Nasal Cannula 2.0 01/30/17 16:45 76 14 132/67 97 Nasal Cannula 2.0 01/30/17 16:30 77 15 137/71 95 Nasal Cannula 2.0 01/30/17 16:25 73 2 94 01/30/17 16:20 73 16 141/70 96 Nasal Cannula 2.0 01/30/17 16:16 98.5 81 22 143/57 96 Nasal Cannula 2.0 01/30/17 15:13 Nasal Cannula 01/30/17 15:13 Nasal Cannula 01/30/17 11:50 97.2 73 18 114/71 94 Nasal Cannula 2.0 01/30/17 11:27 82 14 99 Nasal Cannula 2.0 28 01/30/17 11:17 78 16 95 Nasal Cannula 2.0 28 01/30/17 09:30 134/64 01/30/17 09:29 74 134/64 Intake and Output 01/30/17 01/31/17 19:00 07:00 Intake Total 615 ml 1715 ml Output Total 900 ml 1900 ml Balance -285 ml -185 ml Intake Oral 100 ml 1000 ml IV Total 515 ml 715 ml Output Urine Total 900 ml 1900 ml # Voids 2 Objective HEENT: Overall negative, otherwise oropharynx is clear. No thrush. NECK: No jugular venous distention. LUNGS: Good air entry. some wheezes. CARDIAC: Normal S1 and S2. Regular, rate, and rhythm. Soft systolic murmur, left parasternal border. No rubs or gallops. ABDOMEN: Soft and nontender. No flank tenderness. EXTREMITIES: No cyanosis or clubbing. There is trace edema. NEUROLOGIC: Grossly nonfocal. Microbiology Date/Time Source Procedure Growth Status 01/28/17 21:00 Urine,Clean Catch Urine Culture - Preliminary Gram Negative Bacillus 1 Resulted Current Medications Medications (Trade) Dose Ordered Sig/Adrien Route PRN Reason Start Time Stop Time Status Last Admin Dose Admin Acetaminophen (Tylenol) 500 mg Q6H PRN ORAL Mild Pain/Temp > 100.5 01/28/17 05:30 02/27/17 05:29 Acetaminophen/ Hydrocodone Bitart ([place] 10/325) 1 ea Q4H PRN ORAL For Pain 01/28/17 05:30 02/04/17 05:29 01/31/17 05:36 Al Hydroxide/Mg Hydroxide (Mylanta) 30 ml TIDPRN PRN ORAL INDIGESTION/DYSPEPSIA 01/29/17 21:30 02/28/17 21:29 01/29/17 21:57 Albuterol Sulfate 2.5 mg 2.5 mg Q4HRT HHN 01/29/17 11:00 02/03/17 10:59 01/31/17 07:22 Atorvastatin Calcium (Lipitor) 40 mg DAILY ORAL 01/28/17 09:00 02/27/17 08:59 01/31/17 09:12 Beclomethasone Dipropionate (Qvar 40 Inhaler) 1 puff BEDTIME INH 01/28/17 21:00 02/27/17 20:59 Budesonide (Pulmicort) 0.25 mg EVERY 12 HOURS HHN 01/28/17 21:00 02/27/17 20:59 01/31/17 09:10 Cefepime HCl/ Dextrose (Maxipime/D5W) 55 ml @ 110 mls/hr DAILY IVPB 01/29/17 15:00 02/05/17 14:59 01/30/17 09:27 Docusate Sodium (Colace) 100 mg DAILY ORAL 01/28/17 09:00 02/27/17 08:59 01/31/17 09:12 Fluticasone Propionate 1 spray 1 spray DAILY NASAL 01/28/17 09:00 02/27/17 08:59 01/31/17 09:18 Gabapentin (Neurontin) 600 mg THREE TIMES A DAY ORAL 01/28/17 09:00 02/27/17 08:59 01/31/17 09:13 Glimepiride (Amaryl) 1 mg BEFORE BREAKFAST ORAL 01/28/17 06:30 02/27/17 06:29 01/31/17 05:37 Hydrochlorothiazide (Hydrodiuril) 25 mg DAILY ORAL 01/28/17 09:00 02/27/17 08:59 01/30/17 09:29 Hydromorphone HCl (Dilaudid) 1 mg Q6H PRN IVP Severe Pain (Pain Scale 7-10) 01/28/17 05:30 02/04/17 05:29 01/31/17 00:35 Lisinopril (Zestril) 5 mg DAILY ORAL 01/28/17 09:00 02/27/17 08:59 01/31/17 09:13 Nifedipine (Procardia XL) 30 mg DAILY ORAL 01/28/17 09:00 02/27/17 08:59 01/30/17 09:29 Ondansetron HCl (Zofran) 4 mg Q6H PRN IVP Nausea & Vomiting 01/28/17 05:30 02/27/17 05:29 Pantoprazole (Protonix) 40 mg DAILY ORAL 01/30/17 09:00 03/01/17 08:59 01/31/17 09:13 Potassium Chloride/Sodium Chloride (KCl/0.45% NS 1000ml) 1,015 ml @ 65 mls/hr [id number] IV 01/28/17 08:00 02/27/17 07:59 01/31/17 05:12 Zolpidem Tartrate (Ambien) 5 mg HSPRN PRN ORAL Insomnia 01/29/17 21:15 02/28/17 21:14 01/31/17 02:13 ARIANE MACDONALD 18, 2017 09:25
[2017-01-31] MEDS: Cefepime HCl 1 GM in D5W 55 ML IVPB SCH (10:07)
--- NOTE | 2017-01-31 10:18 | 48 Hour Post Anesthesia Eval ---
Post Anesthesia Evaluation Procedure: Cysto retrograde pyelogram lithotrypsy Date of Evaluation: Jan 31, 2017 Time of Evaluation: 10:16 Blood Pressure Systolic: 116 0: 74 Pulse Rate: 68 Respiratory Rate: 22 Temperature (Fahrenheit): 97.5 O2 Sat by Pulse Oximetry: 96 Airway: patent Nausea: No Vomiting: No Pain Intensity: 3 Hydration Status: adequate Cardiopulmonary Status: stable Mental Status/LOC: patient returned to baseline Follow-up Care/Observations: n/a Post-Anesthesia Complications: none Follow-up care needed: N/A KWADWO FLAHERTY M.D. Jan 31, 2017 10:18
--- NOTE | 2017-01-31 11:09 | Urology Progress Note ---
Assessment/Plan Assessment/Plan 1. Nephrolithiasis with colic. 2. Left-sided hydronephrosis. 3. Mild acute kidney injury. 4. Hematuria. 5. History of bladder tumor. 6. POD # 1, ureteroscopy/litho/stent monitor clinically abx monitor renal fxn, check bmp dc guevara Subjective Allergies: Coded Allergies: DIAZEPAM (Verified Allergy, Mild, Itching, 10/28/15) DOBUTAMINE (Verified Allergy, Unknown, 10/28/15) Subjective all noted, feels fair, flank pain resolved Objective Last 24 Hour Vital Signs Date Time Temp Pulse Resp B/P Pulse Ox O2 Delivery O2 Flow Rate FiO2 01/31/17 10:52 71 18 94 Nasal Cannula 2.0 28 01/31/17 10:18 68 22 96 01/31/17 09:20 75 20 98 Nasal Cannula 2.0 28 01/31/17 09:13 116/74 01/31/17 09:10 73 20 96 Nasal Cannula 2.0 28 01/31/17 08:00 96.8 78 20 116/74 95 Nasal Cannula 2.0 01/31/17 07:22 94 Nasal Cannula 2.0 28 01/31/17 07:22 71 18 94 Nasal Cannula 2.0 28 01/31/17 07:22 71 18 97 Nasal Cannula 2.0 28 01/31/17 07:22 Nasal Cannula 2.0 28 01/31/17 07:22 71 20 Nasal Cannula 2.0 28 01/31/17 06:35 98.6 01/31/17 04:00 98.6 79 18 119/59 01/31/17 03:40 72 16 97 Nasal Cannula 2.0 28 01/31/17 03:30 70 16 94 Nasal Cannula 2.0 28 01/31/17 00:00 98.8 84 20 125/64 94 Nasal Cannula 01/30/17 23:16 74 20 95 Nasal Cannula 2.0 28 01/30/17 23:16 78 20 98 Nasal Cannula 2.0 28 01/30/17 21:30 78 20 96 Nasal Cannula 2.0 28 01/30/17 21:30 81 20 98 Nasal Cannula 2.0 28 01/30/17 20:07 79 20 97 Nasal Cannula 2.0 28 01/30/17 20:06 Nasal Cannula 2.0 28 01/30/17 20:06 77 20 94 Nasal Cannula 2.0 28 01/30/17 20:06 94 Nasal Cannula 2.0 28 01/30/17 20:00 98.2 81 20 132/66 95 Nasal Cannula 2.0 01/30/17 19:30 77 20 Nasal Cannula 2.0 28 01/30/17 17:27 97.8 73 16 150/66 97 Nasal Cannula 2.0 01/30/17 17:15 75 17 147/70 95 Nasal Cannula 2.0 01/30/17 17:10 72 16 152/67 95 Nasal Cannula 2.0 01/30/17 17:00 76 18 135/75 95 Nasal Cannula 2.0 01/30/17 16:50 72 15 135/75 95 Nasal Cannula 2.0 01/30/17 16:45 76 14 132/67 97 Nasal Cannula 2.0 01/30/17 16:30 77 15 137/71 95 Nasal Cannula 2.0 01/30/17 16:25 73 2 94 01/30/17 16:20 73 16 141/70 96 Nasal Cannula 2.0 01/30/17 16:16 98.5 81 22 143/57 96 Nasal Cannula 2.0 01/30/17 15:13 Nasal Cannula 01/30/17 15:13 Nasal Cannula 01/30/17 11:50 97.2 73 18 114/71 94 Nasal Cannula 2.0 01/30/17 11:27 82 14 99 Nasal Cannula 2.0 28 01/30/17 11:17 78 16 95 Nasal Cannula 2.0 28 Intake and Output 01/30/17 01/31/17 19:00 07:00 Intake Total 615 ml 1715 ml Output Total 900 ml 1900 ml Balance -285 ml -185 ml Intake Oral 100 ml 1000 ml IV Total 515 ml 715 ml Output Urine Total 900 ml 1900 ml # Voids 2 Microbiology Date/Time Source Procedure Growth Status 01/28/17 21:00 Urine,Clean Catch Urine Culture - Final Escherichia Coli Complete Current Medications Medications (Trade) Dose Ordered Sig/Adrien Route PRN Reason Start Time Stop Time Status Last Admin Dose Admin Acetaminophen (Tylenol) 500 mg Q6H PRN ORAL Mild Pain/Temp > 100.5 01/28/17 05:30 02/27/17 05:29 Acetaminophen/ Hydrocodone Bitart ([place] 10/325) 1 ea Q4H PRN ORAL For Pain 01/28/17 05:30 02/04/17 05:29 01/31/17 10:06 Al Hydroxide/Mg Hydroxide (Mylanta) 30 ml TIDPRN PRN ORAL INDIGESTION/DYSPEPSIA 01/29/17 21:30 02/28/17 21:29 01/29/17 21:57 Albuterol Sulfate 2.5 mg 2.5 mg Q4HRT HHN 01/29/17 11:00 02/03/17 10:59 01/31/17 10:52 Atorvastatin Calcium (Lipitor) 40 mg DAILY ORAL 01/28/17 09:00 02/27/17 08:59 01/31/17 09:12 Beclomethasone Dipropionate (Qvar 40 Inhaler) 1 puff BEDTIME INH 01/28/17 21:00 02/27/17 20:59 Budesonide (Pulmicort) 0.25 mg EVERY 12 HOURS HHN 01/28/17 21:00 02/27/17 20:59 01/31/17 09:10 Cefepime HCl/ Dextrose (Maxipime/D5W) 55 ml @ 110 mls/hr DAILY IVPB 01/29/17 15:00 02/05/17 14:59 01/31/17 10:07 Docusate Sodium (Colace) 100 mg DAILY ORAL 01/28/17 09:00 02/27/17 08:59 01/31/17 09:12 Fluticasone Propionate 1 spray 1 spray DAILY NASAL 01/28/17 09:00 02/27/17 08:59 01/31/17 09:18 Gabapentin (Neurontin) 600 mg THREE TIMES A DAY ORAL 01/28/17 09:00 02/27/17 08:59 01/31/17 09:13 Glimepiride (Amaryl) 1 mg BEFORE BREAKFAST ORAL 01/28/17 06:30 02/27/17 06:29 01/31/17 05:37 Hydrochlorothiazide (Hydrodiuril) 25 mg DAILY ORAL 01/28/17 09:00 02/27/17 08:59 01/30/17 09:29 Hydromorphone HCl (Dilaudid) 1 mg Q6H PRN IVP Severe Pain (Pain Scale 7-10) 01/28/17 05:30 02/04/17 05:29 01/31/17 00:35 Lisinopril (Zestril) 5 mg DAILY ORAL 01/28/17 09:00 02/27/17 08:59 01/31/17 09:13 Nifedipine (Procardia XL) 30 mg DAILY ORAL 01/28/17 09:00 02/27/17 08:59 01/30/17 09:29 Ondansetron HCl (Zofran) 4 mg Q6H PRN IVP Nausea & Vomiting 01/28/17 05:30 02/27/17 05:29 Pantoprazole (Protonix) 40 mg DAILY ORAL 01/30/17 09:00 03/01/17 08:59 01/31/17 09:13 Potassium Chloride/Sodium Chloride (KCl/0.45% NS 1000ml) 1,015 ml @ 65 mls/hr [id number] IV 01/28/17 08:00 02/27/17 07:59 01/31/17 05:12 Zolpidem Tartrate (Ambien) 5 mg HSPRN PRN ORAL Insomnia 01/29/17 21:15 02/28/17 21:14 01/31/17 02:13 Height (Feet): 5 Height (Inches): 5.00 Weight (Pounds): 220 Objective exam stable, guevara in place, urine blood-tinged HILTONSHADSANYAJan 31, 2017 11:09
[2017-01-31 12:00] VITALS: BP 109/68
--- NOTE | 2017-01-31 13:09 | General Progress Note ---
Assessment/Plan Assessment/Plan 1) left renal calculus with mild to moderate hydronephrosis and hematuria 2) CJ--resolved 3) Lung nodule 4) HTN 5) DM 6) COPD 7) peripheral neuropathy Plan monitor CBC f/u continue Abx lab today Discussed with pt and RN Subjective Allergies: Coded Allergies: DIAZEPAM (Verified Allergy, Mild, Itching, 10/28/15) DOBUTAMINE (Verified Allergy, Unknown, 10/28/15) Subjective Still having hematuria. flank pain is better now. No reported fever Objective Last 24 Hour Vital Signs Date Time Temp Pulse Resp B/P Pulse Ox O2 Delivery O2 Flow Rate FiO2 01/31/17 12:00 97.3 72 20 109/68 95 Nasal Cannula 2.0 01/31/17 11:02 71 18 97 Nasal Cannula 2.0 28 01/31/17 10:52 71 18 94 Nasal Cannula 2.0 28 01/31/17 10:18 68 22 96 01/31/17 09:20 75 20 98 Nasal Cannula 2.0 28 01/31/17 09:13 116/74 01/31/17 09:10 73 20 96 Nasal Cannula 2.0 28 01/31/17 08:00 96.8 78 20 116/74 95 Nasal Cannula 2.0 01/31/17 07:22 94 Nasal Cannula 2.0 28 01/31/17 07:22 71 18 94 Nasal Cannula 2.0 28 01/31/17 07:22 71 18 97 Nasal Cannula 2.0 28 01/31/17 07:22 Nasal Cannula 2.0 28 01/31/17 07:22 71 20 Nasal Cannula 2.0 28 01/31/17 06:35 98.6 01/31/17 04:00 98.6 79 18 119/59 01/31/17 03:40 72 16 97 Nasal Cannula 2.0 28 01/31/17 03:30 70 16 94 Nasal Cannula 2.0 28 01/31/17 00:00 98.8 84 20 125/64 94 Nasal Cannula 01/30/17 23:16 74 20 95 Nasal Cannula 2.0 28 01/30/17 23:16 78 20 98 Nasal Cannula 2.0 28 01/30/17 21:30 78 20 96 Nasal Cannula 2.0 28 01/30/17 21:30 81 20 98 Nasal Cannula 2.0 28 01/30/17 20:07 79 20 97 Nasal Cannula 2.0 28 01/30/17 20:06 Nasal Cannula 2.0 28 01/30/17 20:06 77 20 94 Nasal Cannula 2.0 28 01/30/17 20:06 94 Nasal Cannula 2.0 28 01/30/17 20:00 98.2 81 20 132/66 95 Nasal Cannula 2.0 01/30/17 19:30 77 20 Nasal Cannula 2.0 28 01/30/17 17:27 97.8 73 16 150/66 97 Nasal Cannula 2.0 01/30/17 17:15 75 17 147/70 95 Nasal Cannula 2.0 01/30/17 17:10 72 16 152/67 95 Nasal Cannula 2.0 01/30/17 17:00 76 18 135/75 95 Nasal Cannula 2.0 01/30/17 16:50 72 15 135/75 95 Nasal Cannula 2.0 01/30/17 16:45 76 14 132/67 97 Nasal Cannula 2.0 01/30/17 16:30 77 15 137/71 95 Nasal Cannula 2.0 01/30/17 16:25 73 2 94 01/30/17 16:20 73 16 141/70 96 Nasal Cannula 2.0 01/30/17 16:16 98.5 81 22 143/57 96 Nasal Cannula 2.0 01/30/17 15:13 Nasal Cannula 01/30/17 15:13 Nasal Cannula Intake and Output 01/30/17 01/31/17 19:00 07:00 Intake Total 615 ml 1715 ml Output Total 900 ml 1900 ml Balance -285 ml -185 ml Intake Oral 100 ml 1000 ml IV Total 515 ml 715 ml Output Urine Total 900 ml 1900 ml # Voids 2 Height (Feet): 5 Height (Inches): 5.00 Weight (Pounds): 220 Objective NAD, AAOx3 CTA b/l,no rales, no rhonchi S1,S2,RRR, no M/R/G soft, non tender, BS+ no edema, Beckford's cath with hematuria GUY,EVELYN Jan 31, 2017 13:09
[2017-01-31 13:41] LABS: BASOPHILS % (AUTO) 1.2 % (0.0-2.0); EOSINOPHILS % (AUTO) 2.1 % (0.0-3.0); LYMPHOCYTES % (AUTO) 33.1 % (20.0-45.0); MEAN CORPUSCULAR HEMOGLOBIN 27.7 PG (27.0-31.0); MEAN CORPUSCULAR HGB CONC 32.1 G/DL (32.0-36.0); MEAN CORPUSCULAR VOLUME 86 FL (80-99); MEAN PLATELET VOLUME 9.9 FL (6.5-10.1); MONOCYTES % (AUTO) 8.2 % (1.0-10.0); NEUTROPHILS % (AUTO) 55.4 % (45.0-75.0); PLATELET COUNT 264 K/UL (150-450); RED BLOOD COUNT 4.55 M/UL (4.20-5.40); RED CELL DISTRIBUTION WIDTH 13.2 % (11.6-14.8); WHITE BLOOD COUNT 6.1 K/UL (4.8-10.8)
[2017-01-31 13:59] LABS: CALCIUM 9.8 mg/dL (8.6-10.2); CREATININE 1.2 mg/dL (0.5-0.9); GLOMERULAR FILTRATION RATE 54.3 mL/min (>60); POTASSIUM 4.6 mEQ/L (3.4-4.9)
[2017-01-31 16:00] VITALS: BP 140/75
[2017-01-31 20:00] VITALS: BP 132/69
[2017-01-31] MEDS: Qvar 40mcg Inhaler 6.8 gm INH SCH (20:19)
--- NOTE | 2017-01-31 21:48 | Operative Note - Dictated ---
DATE OF OPERATION: 01/30/2017 PREOPERATIVE DIAGNOSIS: Multiple left renal calculi. POSTOPERATIVE DIAGNOSIS: Multiple left renal calculi. PROCEDURE PERFORMED: Cystoscopy, left ureteroscopy, laser lithotripsy, shockwave lithotripsy, stone extraction, retrograde pyelogram, and placement of double-J stent. OPERATIVE SURGEON: Aly Perez M.D. ANESTHESIOLOGIST: Bret Olivo M.D. ANESTHESIA: General. INDICATION FOR PROCEDURE: This is a pleasant 66-year-old female. She came to the hospital because of left-sided flank pain. She had a workup including a CT scan, which showed an obstructing stone of the left UPJ with hydronephrosis. There were also two other stones in the left kidney in the upper pole and midpole. There was also a questionable history of bladder lesion, which the patient stated. The patient was having significant pain and because of this obstructing stone was of a large size of about 9 mm or so before that it was unlikely that it would pass and as such we decided to proceed with above procedure for definitive treatment. The patient has been on intravenous antibiotics on the floor. The nature of the procedure including possible risks and complications of bleeding, infection, anesthesia, damage to the urethra, bladder, ureter, or need for further surgery were discussed. I specifically did tell that because of the heavy stone noted that she may eventually need to have multiple procedures to completely clear all the stones. All her questions were answered. No guarantees were given prior. FINDINGS: The patient had an obstructive stone in the UPJ, which is packed and was pushed back into the kidney. All three stones were treated. DESCRIPTION OF PROCEDURE: After informed consent was obtained from the patient, the patient was then brought to the operating room and placed in the supine position. After successful general sedation was induced, the patient was then positioned over the focal point of the shockwave generator, which was placed in a modified dorsal lithotomy position. Preoperative intravenous antibiotics had been administered. Time-out was performed. The urethra was gently dilated. Cystoscopy was performed. The bladder was inspected carefully. I did not see any lesions or tumors in the bladder or anything suspicious. On hogshead mat inspector fluoroscopy, the stones were then visible. At this point, the left ureteral orifice was cannulated with open-ended catheter and the guidewire was then passed up. There was resistance noted at the level of the stone, which was impacted at the UPJ. I was able to negotiate the wire into the kidney. This was left as a safety wire. Rigid ureteroscopy was then performed. The distal ureter was somewhat stenotic. I had to pass a second wire and pass the scope in to the wire to get to the stone, at which time the stone was pushed back into the kidney. There was return of some urine with purulent. I did aspirate some of the urine from the kidney and there was no purulence and no odor and I thought that it was safe for this procedure. At this point, a flexible cystoscope was then passed up into the kidney. The endoscopy was then performed. The large obstructive stone was identified in the renal pelvis. I was able to eventually identify the stone in the upper pole as well as the middle pole and then the combination of laser lithotripsy was performed using a 200 micron Holmium laser fiber as well as shockwave lithotripsy using the [employer] and about 1200 or so shock waves were delivered to the large stone and then rest of the shock waves were divided and the other two stones excellent fragmentation was noted. At the end of the procedure, all the fragments appeared to be passable. I did inject contrast to delineate the anatomy. There was moderate dilatation of the collecting system. I then used a tipless basket to remove the small fragments for analysis and ureteroscope was removed. A 6-[place] x 26 cm double-J stent was passed into the collecting system under fluoroscopic guidance. It appeared to be in good position with a good curve in the kidney as well as the bladder. A small string was noted at the bladder end. Beckford catheter was placed. The patient was awakened and was taken to the recovery room in stable condition. Blood loss is minimal. No complications. Aly Perez M.D. DR: TALIA JOB#: [id number] CC: Nieves Nielsen M.D.; Fax#: [phone]
[2017-02-01] VITALS: BP 129/71
[2017-02-01] MEDS: Albuterol ud Inhalation HHN SCH ×7 (00:30→23:28)
[2017-02-01] MEDS: Potassium Chloride 30 MEQ in 1/2 NS 1000ml 1,000 ML IV SCH ×2 (04:03→20:09)
[2017-02-01] MEDS: Norco 10mg/325mg tab ORAL PRN ×4 (04:04→18:24)
[2017-02-01 04:18] VITALS: BP 142/73
[2017-02-01] MEDS: Glimepiride 1mg tab ORAL SCH (05:55)
[2017-02-01 08:00] VITALS: BP 140/80
[2017-02-01] MEDS: Docusate 100mg tablet ORAL SCH (08:45)
[2017-02-01] MEDS: Lisinopril 2.5mg tab ORAL SCH (08:46)
--- NOTE | 2017-02-01 08:56 | Pulmonology Progress Note ---
Assessment/Plan Assessment/Plan IMPRESSION: 1. Renal stone with associated hydronephrosis, associated flank pain. 2. Asthma, clinically stable. 3. Mild chest tightness and cough. 4. Chronic rhinitis. 5. Hypercholesterolemia. PLAN care noted same RX as is follow up clinically no change for now and no other changes noted monitor as is and will adjust if needed additional therapy if needed all care reviewed patient updated impression, plan, and exam edited and reviewed in detail care discussed with RN Subjective ROS Limited/Unobtainable: Yes Allergies: Coded Allergies: DIAZEPAM (Verified Allergy, Mild, Itching, 10/28/15) DOBUTAMINE (Verified Allergy, Unknown, 10/28/15) Subjective care noted and discussed mild cough and congestion Objective Last 24 Hour Vital Signs Date Time Temp Pulse Resp B/P Pulse Ox O2 Delivery O2 Flow Rate FiO2 02/01/17 08:46 92 140/80 02/01/17 08:46 140/80 02/01/17 08:00 97.3 92 20 140/80 100 Room Air 02/01/17 07:48 Nasal Cannula 02/01/17 07:47 Nasal Cannula 02/01/17 07:47 Nasal Cannula 02/01/17 05:03 97.9 02/01/17 04:18 97.9 77 18 142/73 95 Nasal Cannula 2.0 02/01/17 03:59 72 18 95 Nasal Cannula 2.0 28 02/01/17 03:47 70 18 93 Nasal Cannula 2.0 28 02/01/17 00:00 97.9 84 20 129/71 99 2.0 01/31/17 23:55 77 18 97 Nasal Cannula 2.0 28 01/31/17 23:45 75 18 95 Nasal Cannula 2.0 28 01/31/17 20:04 Room Air 01/31/17 20:00 97.3 79 20 132/69 97 Nasal Cannula 2.0 01/31/17 19:55 Nasal Cannula 2.0 28 01/31/17 19:55 Nasal Cannula 01/31/17 19:55 94 Nasal Cannula 2.0 28 01/31/17 19:54 72 20 94 Nasal Cannula 2.0 28 01/31/17 19:54 28 01/31/17 19:05 74 18 97 Nasal Cannula 2.0 28 01/31/17 16:00 97.7 71 20 140/75 96 Nasal Cannula 2.0 01/31/17 15:49 66 16 99 Nasal Cannula 2.0 01/31/17 15:39 66 18 95 Nasal Cannula 2.0 01/31/17 12:00 97.3 72 20 109/68 95 Nasal Cannula 2.0 01/31/17 11:02 71 18 97 Nasal Cannula 2.0 28 01/31/17 10:52 71 18 94 Nasal Cannula 2.0 28 01/31/17 10:18 68 22 96 01/31/17 09:20 75 20 98 Nasal Cannula 2.0 28 01/31/17 09:13 116/74 01/31/17 09:10 73 20 96 Nasal Cannula 2.0 28 Intake and Output 01/31/17 02/01/17 19:00 07:00 Intake Total 890 ml 1440 ml Output Total 1550 ml 1200 ml Balance -660 ml 240 ml Intake Oral 600 ml 660 ml IV Total 290 ml 780 ml Output Urine Total 1550 ml 1200 ml Objective HEENT: Overall negative, otherwise oropharynx is clear. No thrush. NECK: No jugular venous distention. LUNGS: Good air entry. some wheezes and rhonchi CARDIAC: Normal S1 and S2. Regular, rate, and rhythm. Soft systolic murmur, left parasternal border. No rubs or gallops. ABDOMEN: Soft and nontender. No flank tenderness. EXTREMITIES: No cyanosis or clubbing. There is trace edema. NEUROLOGIC: Grossly nonfocal. Laboratory Tests 01/31/17 13:25: White Blood Count 6.1, Red Blood Count 4.55, Hemoglobin 12.6, Hematocrit 39.3, Mean Corpuscular Volume 86, Mean Corpuscular Hemoglobin 27.7, Mean Corpuscular Hemoglobin Concent 32.1, Red Cell Distribution Width 13.2, Platelet Count 264, Mean Platelet Volume 9.9, Neutrophils (%) (Auto) 55.4, Lymphocytes (%) (Auto) 33.1, Monocytes (%) (Auto) 8.2, Eosinophils (%) (Auto) 2.1, Basophils (%) (Auto ) 1.2, Sodium Level 138, Potassium Level 4.6, Chloride Level 95L, Carbon Dioxide Level 26, Anion Gap 17H, Blood Urea Nitrogen 16, Creatinine 1.2H, Estimat Glomerular Filtration Rate 54.3, Glucose Level 119H, Calcium Level 9.8 Current Medications Medications (Trade) Dose Ordered Sig/Adrien Route PRN Reason Start Time Stop Time Status Last Admin Dose Admin Acetaminophen (Tylenol) 500 mg Q6H PRN ORAL Mild Pain/Temp > 100.5 01/28/17 05:30 02/27/17 05:29 Acetaminophen/ Hydrocodone Bitart ([place] 10/325) 1 ea Q4H PRN ORAL For Pain 01/28/17 05:30 02/04/17 05:29 02/01/17 08:47 Al Hydroxide/Mg Hydroxide (Mylanta) 30 ml TIDPRN PRN ORAL INDIGESTION/DYSPEPSIA 01/29/17 21:30 02/28/17 21:29 01/29/17 21:57 Albuterol Sulfate 2.5 mg 2.5 mg Q4HRT HHN 01/29/17 11:00 02/03/17 10:59 02/01/17 03:57 Atorvastatin Calcium (Lipitor) 40 mg DAILY ORAL 01/28/17 09:00 02/27/17 08:59 02/01/17 08:46 Beclomethasone Dipropionate (Qvar 40 Inhaler) 1 puff BEDTIME INH 01/28/17 21:00 02/27/17 20:59 Budesonide (Pulmicort) 0.25 mg EVERY 12 HOURS HHN 01/28/17 21:00 02/27/17 20:59 01/31/17 19:51 Cefepime HCl/ Dextrose (Maxipime/D5W) 55 ml @ 110 mls/hr DAILY IVPB 01/29/17 15:00 02/05/17 14:59 01/31/17 10:07 Docusate Sodium (Colace) 100 mg DAILY ORAL 01/28/17 09:00 02/27/17 08:59 02/01/17 08:45 Fluticasone Propionate 1 spray 1 spray DAILY NASAL 01/28/17 09:00 02/27/17 08:59 01/31/17 09:18 Gabapentin (Neurontin) 600 mg THREE TIMES A DAY ORAL 01/28/17 09:00 02/27/17 08:59 02/01/17 08:45 Glimepiride (Amaryl) 1 mg BEFORE BREAKFAST ORAL 01/28/17 06:30 02/27/17 06:29 02/01/17 05:55 Hydrochlorothiazide (Hydrodiuril) 25 mg DAILY ORAL 01/28/17 09:00 02/27/17 08:59 02/01/17 08:46 Hydromorphone HCl (Dilaudid) 1 mg Q6H PRN IVP Severe Pain (Pain Scale 7-10) 01/28/17 05:30 02/04/17 05:29 01/31/17 00:35 Lisinopril (Zestril) 5 mg DAILY ORAL 01/28/17 09:00 02/27/17 08:59 02/01/17 08:46 Nifedipine (Procardia XL) 30 mg DAILY ORAL 01/28/17 09:00 02/27/17 08:59 02/01/17 08:46 Ondansetron HCl (Zofran) 4 mg Q6H PRN IVP Nausea & Vomiting 01/28/17 05:30 02/27/17 05:29 Pantoprazole (Protonix) 40 mg DAILY ORAL 01/30/17 09:00 03/01/17 08:59 02/01/17 08:44 Potassium Chloride/Sodium Chloride (KCl/0.45% NS 1000ml) 1,015 ml @ 65 mls/hr [id number] IV 01/28/17 08:00 02/27/17 07:59 02/01/17 04:03 Zolpidem Tartrate (Ambien) 5 mg HSPRN PRN ORAL Insomnia 01/29/17 21:15 02/28/17 21:14 01/31/17 02:13 ARIANE MACDONALD Feb 01, 2017 08:56
[2017-02-01] MEDS: Budesonide HHN 0.25mg/2ml ud HHN SCH ×2 (09:28→21:15)
--- NOTE | 2017-02-01 09:56 | Urology Progress Note ---
Assessment/Plan Assessment/Plan 1. Nephrolithiasis with colic. 2. Left-sided hydronephrosis. 3. Mild acute kidney injury, better. 4. Hematuria. 5. History of bladder tumor. 6. POD # 2, ureteroscopy/litho/stent monitor clinically abx monitor renal fxn Subjective Allergies: Coded Allergies: DIAZEPAM (Verified Allergy, Mild, Itching, 10/28/15) DOBUTAMINE (Verified Allergy, Unknown, 10/28/15) Subjective all noted, guevara removed, voiding Objective Last 24 Hour Vital Signs Date Time Temp Pulse Resp B/P Pulse Ox O2 Delivery O2 Flow Rate FiO2 02/01/17 09:39 74 20 100 Nasal Cannula 2.0 28 02/01/17 09:29 73 20 96 Nasal Cannula 2.0 28 02/01/17 08:46 92 140/80 02/01/17 08:46 140/80 02/01/17 08:00 97.3 92 20 140/80 100 Room Air 02/01/17 07:48 Nasal Cannula 02/01/17 07:47 Nasal Cannula 02/01/17 07:47 Nasal Cannula 02/01/17 05:03 97.9 02/01/17 04:18 97.9 77 18 142/73 95 Nasal Cannula 2.0 02/01/17 03:59 72 18 95 Nasal Cannula 2.0 28 02/01/17 03:47 70 18 93 Nasal Cannula 2.0 28 02/01/17 00:00 97.9 84 20 129/71 99 2.0 01/31/17 23:55 77 18 97 Nasal Cannula 2.0 28 01/31/17 23:45 75 18 95 Nasal Cannula 2.0 28 01/31/17 20:04 Room Air 01/31/17 20:00 97.3 79 20 132/69 97 Nasal Cannula 2.0 01/31/17 19:55 Nasal Cannula 2.0 28 01/31/17 19:55 Nasal Cannula 01/31/17 19:55 94 Nasal Cannula 2.0 28 01/31/17 19:54 72 20 94 Nasal Cannula 2.0 28 01/31/17 19:54 28 01/31/17 19:05 74 18 97 Nasal Cannula 2.0 28 01/31/17 16:00 97.7 71 20 140/75 96 Nasal Cannula 2.0 01/31/17 15:49 66 16 99 Nasal Cannula 2.0 01/31/17 15:39 66 18 95 Nasal Cannula 2.0 01/31/17 12:00 97.3 72 20 109/68 95 Nasal Cannula 2.0 01/31/17 11:02 71 18 97 Nasal Cannula 2.0 28 01/31/17 10:52 71 18 94 Nasal Cannula 2.0 28 01/31/17 10:18 68 22 96 Intake and Output 01/31/17 02/01/17 19:00 07:00 Intake Total 890 ml 1440 ml Output Total 1550 ml 1200 ml Balance -660 ml 240 ml Intake Oral 600 ml 660 ml IV Total 290 ml 780 ml Output Urine Total 1550 ml 1200 ml Microbiology Date/Time Source Procedure Growth Status 01/28/17 21:00 Urine,Clean Catch Urine Culture - Final Escherichia Coli Complete Current Medications Medications (Trade) Dose Ordered Sig/Adrien Route PRN Reason Start Time Stop Time Status Last Admin Dose Admin Acetaminophen (Tylenol) 500 mg Q6H PRN ORAL Mild Pain/Temp > 100.5 01/28/17 05:30 02/27/17 05:29 Acetaminophen/ Hydrocodone Bitart ([place] 10/325) 1 ea Q4H PRN ORAL For Pain 01/28/17 05:30 02/04/17 05:29 02/01/17 08:47 Al Hydroxide/Mg Hydroxide (Mylanta) 30 ml TIDPRN PRN ORAL INDIGESTION/DYSPEPSIA 01/29/17 21:30 02/28/17 21:29 01/29/17 21:57 Albuterol Sulfate 2.5 mg 2.5 mg Q4HRT [facility] 01/29/17 11:00 02/03/17 10:59 02/01/17 03:57 Atorvastatin Calcium (Lipitor) 40 mg DAILY ORAL 01/28/17 09:00 02/27/17 08:59 02/01/17 08:46 Beclomethasone Dipropionate (Qvar 40 Inhaler) 1 puff BEDTIME INH 01/28/17 21:00 02/27/17 20:59 Budesonide (Pulmicort) 0.25 mg EVERY 12 HOURS [facility] 01/28/17 21:00 02/27/17 20:59 02/01/17 09:28 Cefepime HCl/ Dextrose (Maxipime/D5W) 55 ml @ 110 mls/hr DAILY IVPB 01/29/17 15:00 02/05/17 14:59 01/31/17 10:07 Docusate Sodium (Colace) 100 mg DAILY ORAL 01/28/17 09:00 02/27/17 08:59 02/01/17 08:45 Fluticasone Propionate 1 spray 1 spray DAILY NASAL 01/28/17 09:00 02/27/17 08:59 01/31/17 09:18 Gabapentin (Neurontin) 600 mg THREE TIMES A DAY ORAL 01/28/17 09:00 02/27/17 08:59 02/01/17 08:45 Glimepiride (Amaryl) 1 mg BEFORE BREAKFAST ORAL 01/28/17 06:30 02/27/17 06:29 02/01/17 05:55 Hydrochlorothiazide (Hydrodiuril) 25 mg DAILY ORAL 01/28/17 09:00 02/27/17 08:59 02/01/17 08:46 Hydromorphone HCl (Dilaudid) 1 mg Q6H PRN IVP Severe Pain (Pain Scale 7-10) 01/28/17 05:30 02/04/17 05:29 01/31/17 00:35 Lisinopril (Zestril) 5 mg DAILY ORAL 01/28/17 09:00 02/27/17 08:59 02/01/17 08:46 Nifedipine (Procardia XL) 30 mg DAILY ORAL 01/28/17 09:00 02/27/17 08:59 02/01/17 08:46 Ondansetron HCl (Zofran) 4 mg Q6H PRN IVP Nausea & Vomiting 01/28/17 05:30 02/27/17 05:29 Pantoprazole (Protonix) 40 mg DAILY ORAL 01/30/17 09:00 03/01/17 08:59 02/01/17 08:44 Potassium Chloride/Sodium Chloride (KCl/0.45% NS 1000ml) 1,015 ml @ 65 mls/hr [id number] IV 01/28/17 08:00 02/27/17 07:59 02/01/17 04:03 Zolpidem Tartrate (Ambien) 5 mg HSPRN PRN ORAL Insomnia 01/29/17 21:15 02/28/17 21:14 01/31/17 02:13 Laboratory Tests 01/31/17 13:25: White Blood Count 6.1, Red Blood Count 4.55, Hemoglobin 12.6, Hematocrit 39.3, Mean Corpuscular Volume 86, Mean Corpuscular Hemoglobin 27.7, Mean Corpuscular Hemoglobin Concent 32.1, Red Cell Distribution Width 13.2, Platelet Count 264, Mean Platelet Volume 9.9, Neutrophils (%) (Auto) 55.4, Lymphocytes (%) (Auto) 33.1, Monocytes (%) (Auto) 8.2, Eosinophils (%) (Auto) 2.1, Basophils (%) (Auto ) 1.2, Sodium Level 138, Potassium Level 4.6, Chloride Level 95L, Carbon Dioxide Level 26, Anion Gap 17H, Blood Urea Nitrogen 16, Creatinine 1.2H, Estimat Glomerular Filtration Rate 54.3, Glucose Level 119H, Calcium Level 9.8 Height (Feet): 5 Height (Inches): 5.00 Weight (Pounds): 220 Objective exam stable SANYA PIERSON Feb 01, 2017 09:56
--- NOTE | 2017-02-01 10:14 | General Progress Note ---
Assessment/Plan Assessment/Plan 1) left renal calculus with mild to moderate hydronephrosis and hematuria s/p litho and stent 2) CJ--resolved 3) Lung nodule 4) HTN 5) DM 6) COPD 7) peripheral neuropathy Plan monitor CBC f/u continue Abx Discussed with pt and RN Subjective Allergies: Coded Allergies: DIAZEPAM (Verified Allergy, Mild, Itching, 10/28/15) DOBUTAMINE (Verified Allergy, Unknown, 10/28/15) Subjective [place] was removed. small stone was passed last night. Hematuria is improved Objective Last 24 Hour Vital Signs Date Time Temp Pulse Resp B/P Pulse Ox O2 Delivery O2 Flow Rate FiO2 02/01/17 09:39 74 20 100 Nasal Cannula 2.0 28 02/01/17 09:29 73 20 96 Nasal Cannula 2.0 28 02/01/17 08:46 92 140/80 02/01/17 08:46 140/80 02/01/17 08:00 97.3 92 20 140/80 100 Room Air 02/01/17 07:48 Nasal Cannula 02/01/17 07:47 Nasal Cannula 02/01/17 07:47 Nasal Cannula 02/01/17 05:03 97.9 02/01/17 04:18 97.9 77 18 142/73 95 Nasal Cannula 2.0 02/01/17 03:59 72 18 95 Nasal Cannula 2.0 28 02/01/17 03:47 70 18 93 Nasal Cannula 2.0 28 02/01/17 00:00 97.9 84 20 129/71 99 2.0 01/31/17 23:55 77 18 97 Nasal Cannula 2.0 28 01/31/17 23:45 75 18 95 Nasal Cannula 2.0 28 01/31/17 20:04 Room Air 01/31/17 20:00 97.3 79 20 132/69 97 Nasal Cannula 2.0 01/31/17 19:55 Nasal Cannula 2.0 28 01/31/17 19:55 Nasal Cannula 01/31/17 19:55 94 Nasal Cannula 2.0 28 01/31/17 19:54 72 20 94 Nasal Cannula 2.0 28 01/31/17 19:54 28 01/31/17 19:05 74 18 97 Nasal Cannula 2.0 28 01/31/17 16:00 97.7 71 20 140/75 96 Nasal Cannula 2.0 01/31/17 15:49 66 16 99 Nasal Cannula 2.0 01/31/17 15:39 66 18 95 Nasal Cannula 2.0 01/31/17 12:00 97.3 72 20 109/68 95 Nasal Cannula 2.0 01/31/17 11:02 71 18 97 Nasal Cannula 2.0 28 01/31/17 10:52 71 18 94 Nasal Cannula 2.0 28 01/31/17 10:18 68 22 96 Intake and Output 01/31/17 02/01/17 19:00 07:00 Intake Total 890 ml 1440 ml Output Total 1550 ml 1200 ml Balance -660 ml 240 ml Intake Oral 600 ml 660 ml IV Total 290 ml 780 ml Output Urine Total 1550 ml 1200 ml Laboratory Tests 01/31/17 13:25: White Blood Count 6.1, Red Blood Count 4.55, Hemoglobin 12.6, Hematocrit 39.3, Mean Corpuscular Volume 86, Mean Corpuscular Hemoglobin 27.7, Mean Corpuscular Hemoglobin Concent 32.1, Red Cell Distribution Width 13.2, Platelet Count 264, Mean Platelet Volume 9.9, Neutrophils (%) (Auto) 55.4, Lymphocytes (%) (Auto) 33.1, Monocytes (%) (Auto) 8.2, Eosinophils (%) (Auto) 2.1, Basophils (%) (Auto ) 1.2, Sodium Level 138, Potassium Level 4.6, Chloride Level 95L, Carbon Dioxide Level 26, Anion Gap 17H, Blood Urea Nitrogen 16, Creatinine 1.2H, Estimat Glomerular Filtration Rate 54.3, Glucose Level 119H, Calcium Level 9.8 Height (Feet): 5 Height (Inches): 5.00 Weight (Pounds): 220 Objective NAD, AAOx3 CTA b/l,no rales, no rhonchi S1,S2,RRR, no M/R/G soft, non tender, BS+ no edema, GUY,EVELYN Feb 01, 2017 10:14
[2017-02-01] MEDS: Flonase Nasal Inhaler 16gm NASAL SCH (10:34)
[2017-02-01] MEDS: Cefepime HCl 1 GM in D5W 55 ML IVPB SCH (10:35)
[2017-02-01 12:00] VITALS: BP 120/69
[2017-02-01 16:23] VITALS: BP 136/56
[2017-02-01 20:00] VITALS: BP 133/52
[2017-02-02] VITALS: BP 129/66
[2017-02-02] MEDS: Norco 10mg/325mg tab ORAL PRN ×3 (00:36→17:07)
[2017-02-02] MEDS: Zolpidem 5mg tab ORAL PRN ×2 (00:36→22:08)
[2017-02-02] MEDS: Albuterol ud Inhalation HHN SCH ×6 (03:50→22:24)
[2017-02-02 04:00] VITALS: BP 134/71
[2017-02-02] MEDS: Glimepiride 1mg tab ORAL SCH (06:39)
[2017-02-02 06:57] LABS: ANION GAP 15 (5-15); CARBON DIOXIDE 26 mEQ/L (20-30); CHLORIDE 98 mEQ/L (98-107); GLOMERULAR FILTRATION RATE > 60 mL/min (>60); HEMOLYSIS 14; POTASSIUM 4.2 mEQ/L (3.4-4.9); SODIUM 139 mEQ/L (135-145)
[2017-02-02 07:01] LABS: BASOPHILS % (AUTO) 1.6 % (0.0-2.0); EOSINOPHILS % (AUTO) 3.8 % (0.0-3.0); LYMPHOCYTES % (AUTO) 36.8 % (20.0-45.0); MEAN CORPUSCULAR HEMOGLOBIN 27.6 PG (27.0-31.0); MEAN CORPUSCULAR HGB CONC 32.6 G/DL (32.0-36.0); MEAN CORPUSCULAR VOLUME 85 FL (80-99); MEAN PLATELET VOLUME 8.3 FL (6.5-10.1); MONOCYTES % (AUTO) 10.1 % (1.0-10.0); NEUTROPHILS % (AUTO) 47.8 % (45.0-75.0); PLATELET COUNT 169 K/UL (150-450); RED BLOOD COUNT 4.43 M/UL (4.20-5.40); RED CELL DISTRIBUTION WIDTH 13.1 % (11.6-14.8); WHITE BLOOD COUNT 5.4 K/UL (4.8-10.8)
[2017-02-02 08:06] VITALS: BP 124/55
[2017-02-02] MEDS: Budesonide HHN 0.25mg/2ml ud HHN SCH ×2 (08:12→20:16)
--- NOTE | 2017-02-02 08:22 | Pulmonology Progress Note ---
Assessment/Plan Assessment/Plan IMPRESSION: 1. Renal stone with associated hydronephrosis, associated flank pain. 2. Asthma, clinically stable. 3. Mild chest tightness and cough. 4. Chronic rhinitis. 5. Hypercholesterolemia. PLAN no change in exam care noted same RX per pulmonary for now follow up clinically no change for now monitor for change urology clearance additional therapy if needed all care reviewed patient updated impression, plan, and exam edited and reviewed in detail care discussed with RN Subjective Allergies: Coded Allergies: DIAZEPAM (Verified Allergy, Mild, Itching, 10/28/15) DOBUTAMINE (Verified Allergy, Unknown, 10/28/15) Subjective care noted and discussed minimal cough and congestion Objective Last 24 Hour Vital Signs Date Time Temp Pulse Resp B/P Pulse Ox O2 Delivery O2 Flow Rate FiO2 02/02/17 08:15 85 16 100 Nasal Cannula 2.0 28 02/02/17 08:06 97.5 66 19 124/55 96 Nasal Cannula 2.0 02/02/17 08:05 80 16 100 Nasal Cannula 2.0 28 02/02/17 08:05 28 02/02/17 07:56 Nasal Cannula 3.0 32 02/02/17 07:54 80 16 100 Nasal Cannula 3.0 32 02/02/17 07:45 80 16 98 Nasal Cannula 3.0 32 02/02/17 07:44 98 Nasal Cannula 3.0 32 02/02/17 04:00 97.7 84 18 134/71 95 Nasal Cannula 2.0 02/02/17 03:59 77 14 99 Nasal Cannula 3.0 32 02/02/17 03:50 76 14 96 Nasal Cannula 3.0 32 02/02/17 01:35 97.9 02/02/17 00:00 97.0 76 18 129/66 96 Nasal Cannula 2.0 02/01/17 23:37 75 14 99 Nasal Cannula 3.0 32 02/01/17 23:30 75 14 100 Nasal Cannula 3.0 32 02/01/17 21:26 72 16 100 Nasal Cannula 2.0 28 02/01/17 21:17 28 02/01/17 21:17 88 16 98 Nasal Cannula 2.0 28 02/01/17 20:00 97.9 86 19 133/52 92 Nasal Cannula 2.0 02/01/17 19:21 79 14 99 Nasal Cannula 3.0 32 02/01/17 19:13 Nasal Cannula 3.0 32 02/01/17 19:12 94 Nasal Cannula 3.0 32 02/01/17 19:12 75 14 94 Nasal Cannula 3.0 32 02/01/17 19:00 75 16 Nasal Cannula 2.0 28 02/01/17 16:23 97.7 85 16 136/56 98 Room Air 02/01/17 15:04 66 18 98 Nasal Cannula 3.0 32 02/01/17 14:54 68 18 91 Nasal Cannula 3.0 32 02/01/17 12:00 97.2 18 120/69 97 Room Air 02/01/17 11:50 66 18 98 Nasal Cannula 3.0 32 02/01/17 11:45 68 18 91 Nasal Cannula 3.0 32 02/01/17 09:39 74 20 100 Nasal Cannula 2.0 28 02/01/17 09:29 73 20 96 Nasal Cannula 2.0 28 02/01/17 08:46 92 140/80 02/01/17 08:46 140/80 Intake and Output 02/01/17 02/02/17 19:00 07:00 Intake Total 1080 ml 1100 ml Balance 1080 ml 1100 ml Intake Oral 300 ml 450 ml IV Total 780 ml 650 ml # Voids 7 3 Objective HEENT: Overall negative, otherwise oropharynx is clear. No thrush. NECK: No jugular venous distention. LUNGS: Good air entry. some wheezes and rhonchi CARDIAC: Normal S1 and S2. Regular, rate, and rhythm. Soft systolic murmur, left parasternal border. No rubs or gallops. ABDOMEN: Soft and nontender. No flank tenderness. EXTREMITIES: No cyanosis or clubbing. There is trace edema. NEUROLOGIC: Grossly nonfocal. Laboratory Tests 02/02/17 04:55: White Blood Count 5.4, Red Blood Count 4.43, Hemoglobin 12.2, Hematocrit 37.5, Mean Corpuscular Volume 85, Mean Corpuscular Hemoglobin 27.6, Mean Corpuscular Hemoglobin Concent 32.6, Red Cell Distribution Width 13.1, Platelet Count 169, Mean Platelet Volume 8.3, Neutrophils (%) (Auto) 47.8, Lymphocytes (%) (Auto) 36.8, Monocytes (%) (Auto) 10.1H, Eosinophils (%) (Auto) 3.8H, Basophils (%) ( Auto) 1.6, Sodium Level 139, Potassium Level 4.2, Chloride Level 98, Carbon Dioxide Level 26, Anion Gap 15, Blood Urea Nitrogen 17, Creatinine 1.0H, Estimat Glomerular Filtration Rate > 60, Glucose Level 122H, Calcium Level 9.0 Current Medications Medications (Trade) Dose Ordered Sig/Adrien Route PRN Reason Start Time Stop Time Status Last Admin Dose Admin Acetaminophen (Tylenol) 500 mg Q6H PRN ORAL Mild Pain/Temp > 100.5 01/28/17 05:30 02/27/17 05:29 Acetaminophen/ Hydrocodone Bitart ([place] 10/325) 1 ea Q4H PRN ORAL For Pain 01/28/17 05:30 02/04/17 05:29 02/02/17 00:36 Al Hydroxide/Mg Hydroxide (Mylanta) 30 ml TIDPRN PRN ORAL INDIGESTION/DYSPEPSIA 01/29/17 21:30 02/28/17 21:29 01/29/17 21:57 Albuterol Sulfate 2.5 mg 2.5 mg Q4HRT [facility] 01/29/17 11:00 02/03/17 10:59 02/02/17 08:12 Atorvastatin Calcium (Lipitor) 40 mg DAILY ORAL 01/28/17 09:00 02/27/17 08:59 02/01/17 08:46 Budesonide (Pulmicort) 0.25 mg EVERY 12 HOURS [facility] 01/28/17 21:00 02/27/17 20:59 02/02/17 08:12 Cefepime HCl/ Dextrose (Maxipime/D5W) 55 ml @ 110 mls/hr DAILY IVPB 01/29/17 15:00 02/05/17 14:59 02/01/17 10:35 Docusate Sodium (Colace) 100 mg DAILY ORAL 01/28/17 09:00 02/27/17 08:59 02/01/17 08:45 Fluticasone Propionate 1 spray 1 spray DAILY NASAL 01/28/17 09:00 02/27/17 08:59 02/01/17 10:34 Gabapentin (Neurontin) 600 mg THREE TIMES A DAY ORAL 01/28/17 09:00 02/27/17 08:59 02/01/17 17:29 Glimepiride (Amaryl) 1 mg BEFORE BREAKFAST ORAL 01/28/17 06:30 02/27/17 06:29 02/02/17 06:39 Hydrochlorothiazide (Hydrodiuril) 25 mg DAILY ORAL 01/28/17 09:00 02/27/17 08:59 02/01/17 08:46 Hydromorphone HCl (Dilaudid) 1 mg Q6H PRN IVP Severe Pain (Pain Scale 7-10) 01/28/17 05:30 02/04/17 05:29 01/31/17 00:35 Lisinopril (Zestril) 5 mg DAILY ORAL 01/28/17 09:00 02/27/17 08:59 02/01/17 08:46 Nifedipine (Procardia XL) 30 mg DAILY ORAL 01/28/17 09:00 02/27/17 08:59 02/01/17 08:46 Ondansetron HCl (Zofran) 4 mg Q6H PRN IVP Nausea & Vomiting 01/28/17 05:30 02/27/17 05:29 Pantoprazole (Protonix) 40 mg DAILY ORAL 01/30/17 09:00 03/01/17 08:59 02/01/17 08:44 Potassium Chloride/Sodium Chloride (KCl/0.45% NS 1000ml) 1,015 ml @ 65 mls/hr [id number] IV 01/28/17 08:00 02/27/17 07:59 02/01/17 20:09 Zolpidem Tartrate (Ambien) 5 mg HSPRN PRN ORAL Insomnia 01/29/17 21:15 02/28/17 21:14 02/02/17 00:36 ARIANE MACDONALD Feb 02, 2017 08:22
[2017-02-02] MEDS: Potassium Chloride 30 MEQ in 1/2 NS 1000ml 1,000 ML IV SCH (08:58)
[2017-02-02] MEDS: Cefepime HCl 1 GM in D5W 55 ML IVPB SCH ×2 (08:58→20:04)
[2017-02-02] MEDS: Docusate 100mg tablet ORAL SCH (09:01)
[2017-02-02] MEDS: Lisinopril 2.5mg tab ORAL SCH (09:03)
[2017-02-02] MEDS: Flonase Nasal Inhaler 16gm NASAL SCH (09:04)
--- NOTE | 2017-02-02 11:38 | Urology Progress Note ---
Assessment/Plan Assessment/Plan 1. Nephrolithiasis with colic. 2. Left-sided hydronephrosis. 3. Mild acute kidney injury, better. 4. Hematuria. 5. History of bladder tumor. 6. POD # 3, ureteroscopy/litho/stent monitor clinically abx monitor renal fxn Subjective Allergies: Coded Allergies: DIAZEPAM (Verified Allergy, Mild, Itching, 10/28/15) DOBUTAMINE (Verified Allergy, Unknown, 10/28/15) Subjective all noted, feels fair Objective Last 24 Hour Vital Signs Date Time Temp Pulse Resp B/P Pulse Ox O2 Delivery O2 Flow Rate FiO2 02/02/17 10:02 97.5 02/02/17 10:02 97.5 02/02/17 09:03 124/55 02/02/17 09:01 85 124/55 02/02/17 08:15 85 16 100 Nasal Cannula 2.0 28 02/02/17 08:06 97.5 66 19 124/55 96 Nasal Cannula 2.0 02/02/17 08:05 80 16 100 Nasal Cannula 2.0 28 02/02/17 08:05 28 02/02/17 07:56 Nasal Cannula 3.0 32 02/02/17 07:54 80 16 100 Nasal Cannula 3.0 32 02/02/17 07:45 80 16 98 Nasal Cannula 3.0 32 02/02/17 07:44 98 Nasal Cannula 3.0 32 02/02/17 04:00 97.7 84 18 134/71 95 Nasal Cannula 2.0 02/02/17 03:59 77 14 99 Nasal Cannula 3.0 32 02/02/17 03:50 76 14 96 Nasal Cannula 3.0 32 02/02/17 00:00 97.0 76 18 129/66 96 Nasal Cannula 2.0 02/01/17 23:37 75 14 99 Nasal Cannula 3.0 32 02/01/17 23:30 75 14 100 Nasal Cannula 3.0 32 02/01/17 21:26 72 16 100 Nasal Cannula 2.0 28 02/01/17 21:17 28 02/01/17 21:17 88 16 98 Nasal Cannula 2.0 28 02/01/17 20:00 97.9 86 19 133/52 92 Nasal Cannula 2.0 02/01/17 19:21 79 14 99 Nasal Cannula 3.0 32 02/01/17 19:13 Nasal Cannula 3.0 32 02/01/17 19:12 94 Nasal Cannula 3.0 32 02/01/17 19:12 75 14 94 Nasal Cannula 3.0 32 02/01/17 19:00 75 16 Nasal Cannula 2.0 28 02/01/17 16:23 97.7 85 16 136/56 98 Room Air 02/01/17 15:04 66 18 98 Nasal Cannula 3.0 32 02/01/17 14:54 68 18 91 Nasal Cannula 3.0 32 02/01/17 12:00 97.2 18 120/69 97 Room Air 02/01/17 11:50 66 18 98 Nasal Cannula 3.0 32 02/01/17 11:45 68 18 91 Nasal Cannula 3.0 32 Intake and Output 02/01/17 02/02/17 19:00 07:00 Intake Total 1080 ml 1100 ml Balance 1080 ml 1100 ml Intake Oral 300 ml 450 ml IV Total 780 ml 650 ml # Voids 7 3 Microbiology Date/Time Source Procedure Growth Status 01/28/17 21:00 Urine,Clean Catch Urine Culture - Final Escherichia Coli Complete Current Medications Medications (Trade) Dose Ordered Sig/Adrien Route PRN Reason Start Time Stop Time Status Last Admin Dose Admin Acetaminophen (Tylenol) 500 mg Q6H PRN ORAL Mild Pain/Temp > 100.5 01/28/17 05:30 02/27/17 05:29 Acetaminophen/ Hydrocodone Bitart ([place] 10/325) 1 ea Q4H PRN ORAL For Pain 01/28/17 05:30 02/04/17 05:29 02/02/17 09:05 Al Hydroxide/Mg Hydroxide (Mylanta) 30 ml TIDPRN PRN ORAL INDIGESTION/DYSPEPSIA 01/29/17 21:30 02/28/17 21:29 01/29/17 21:57 Albuterol Sulfate 2.5 mg 2.5 mg Q4HRT N 01/29/17 11:00 02/03/17 10:59 02/02/17 08:12 Atorvastatin Calcium (Lipitor) 40 mg DAILY ORAL 01/28/17 09:00 02/27/17 08:59 02/02/17 09:01 Budesonide (Pulmicort) 0.25 mg EVERY 12 HOURS N 01/28/17 21:00 02/27/17 20:59 02/02/17 08:12 Cefepime HCl/ Dextrose (Maxipime/D5W) 55 ml @ 110 mls/hr DAILY IVPB 01/29/17 15:00 02/05/17 14:59 02/02/17 08:58 Docusate Sodium (Colace) 100 mg DAILY ORAL 01/28/17 09:00 02/27/17 08:59 02/02/17 09:01 Fluticasone Propionate 1 spray 1 spray DAILY NASAL 01/28/17 09:00 02/27/17 08:59 02/02/17 09:04 Gabapentin (Neurontin) 600 mg THREE TIMES A DAY ORAL 01/28/17 09:00 02/27/17 08:59 02/02/17 09:03 Glimepiride (Amaryl) 1 mg BEFORE BREAKFAST ORAL 01/28/17 06:30 02/27/17 06:29 02/02/17 06:39 Hydrochlorothiazide (Hydrodiuril) 25 mg DAILY ORAL 01/28/17 09:00 02/27/17 08:59 02/02/17 09:01 Hydromorphone HCl (Dilaudid) 1 mg Q6H PRN IVP Severe Pain (Pain Scale 7-10) 01/28/17 05:30 02/04/17 05:29 01/31/17 00:35 Lisinopril (Zestril) 5 mg DAILY ORAL 01/28/17 09:00 02/27/17 08:59 02/02/17 09:03 Nifedipine (Procardia XL) 30 mg DAILY ORAL 01/28/17 09:00 02/27/17 08:59 02/02/17 09:01 Ondansetron HCl (Zofran) 4 mg Q6H PRN IVP Nausea & Vomiting 01/28/17 05:30 02/27/17 05:29 Pantoprazole (Protonix) 40 mg DAILY ORAL 01/30/17 09:00 03/01/17 08:59 02/02/17 09:01 Potassium Chloride/Sodium Chloride (KCl/0.45% NS 1000ml) 1,015 ml @ 65 mls/hr [id number] IV 01/28/17 08:00 02/27/17 07:59 02/02/17 08:58 Zolpidem Tartrate (Ambien) 5 mg HSPRN PRN ORAL Insomnia 01/29/17 21:15 02/28/17 21:14 02/02/17 00:36 Laboratory Tests 02/02/17 04:55: White Blood Count 5.4, Red Blood Count 4.43, Hemoglobin 12.2, Hematocrit 37.5, Mean Corpuscular Volume 85, Mean Corpuscular Hemoglobin 27.6, Mean Corpuscular Hemoglobin Concent 32.6, Red Cell Distribution Width 13.1, Platelet Count 169, Mean Platelet Volume 8.3, Neutrophils (%) (Auto) 47.8, Lymphocytes (%) (Auto) 36.8, Monocytes (%) (Auto) 10.1H, Eosinophils (%) (Auto) 3.8H, Basophils (%) ( Auto) 1.6, Sodium Level 139, Potassium Level 4.2, Chloride Level 98, Carbon Dioxide Level 26, Anion Gap 15, Blood Urea Nitrogen 17, Creatinine 1.0H, Estimat Glomerular Filtration Rate > 60, Glucose Level 122H, Calcium Level 9.0 Height (Feet): 5 Height (Inches): 5.00 Weight (Pounds): 220 Objective exam stable SANYA PIERSON Feb 02, 2017 11:38
[2017-02-02 11:49] VITALS: BP 144/69
--- NOTE | 2017-02-02 13:50 | Nephrology Progress Note ---
Assessment/Plan Plan L RenaL Colic -s/p Cysto + stenting By Dr Perez. Creatinine going wenceslao. Today 1.0 Still passing stones. Symptoms Resolving with IVF + Pain Control Subjective Subjective Passing stones. Epigastric dyscomfort. Objective Objective Last 24 Hour Vital Signs Date Time Temp Pulse Resp B/P Pulse Ox O2 Delivery O2 Flow Rate FiO2 02/02/17 11:59 79 16 100 Nasal Cannula 3.0 32 02/02/17 11:50 77 16 98 Nasal Cannula 3.0 32 02/02/17 11:49 97.8 77 20 144/69 96 Nasal Cannula 2.0 02/02/17 10:02 97.5 02/02/17 10:02 97.5 02/02/17 09:03 124/55 02/02/17 09:01 85 124/55 02/02/17 08:15 85 16 100 Nasal Cannula 2.0 28 02/02/17 08:06 97.5 66 19 124/55 96 Nasal Cannula 2.0 02/02/17 08:05 80 16 100 Nasal Cannula 2.0 28 02/02/17 08:05 28 02/02/17 07:56 Nasal Cannula 3.0 32 02/02/17 07:54 80 16 100 Nasal Cannula 3.0 32 02/02/17 07:45 80 16 98 Nasal Cannula 3.0 32 02/02/17 07:44 98 Nasal Cannula 3.0 32 02/02/17 04:00 97.7 84 18 134/71 95 Nasal Cannula 2.0 02/02/17 03:59 77 14 99 Nasal Cannula 3.0 32 02/02/17 03:50 76 14 96 Nasal Cannula 3.0 32 02/02/17 00:00 97.0 76 18 129/66 96 Nasal Cannula 2.0 02/01/17 23:37 75 14 99 Nasal Cannula 3.0 32 02/01/17 23:30 75 14 100 Nasal Cannula 3.0 32 02/01/17 21:26 72 16 100 Nasal Cannula 2.0 28 02/01/17 21:17 28 02/01/17 21:17 88 16 98 Nasal Cannula 2.0 28 02/01/17 20:00 97.9 86 19 133/52 92 Nasal Cannula 2.0 02/01/17 19:21 79 14 99 Nasal Cannula 3.0 32 02/01/17 19:13 Nasal Cannula 3.0 32 02/01/17 19:12 94 Nasal Cannula 3.0 32 02/01/17 19:12 75 14 94 Nasal Cannula 3.0 32 02/01/17 19:00 75 16 Nasal Cannula 2.0 28 02/01/17 16:23 97.7 85 16 136/56 98 Room Air 02/01/17 15:04 66 18 98 Nasal Cannula 3.0 32 02/01/17 14:54 68 18 91 Nasal Cannula 3.0 32 Intake and Output 02/01/17 02/02/17 19:00 07:00 Intake Total 1080 ml 1100 ml Balance 1080 ml 1100 ml Intake Oral 300 ml 450 ml IV Total 780 ml 650 ml # Voids 7 3 Laboratory Tests 02/02/17 04:55: White Blood Count 5.4, Red Blood Count 4.43, Hemoglobin 12.2, Hematocrit 37.5, Mean Corpuscular Volume 85, Mean Corpuscular Hemoglobin 27.6, Mean Corpuscular Hemoglobin Concent 32.6, Red Cell Distribution Width 13.1, Platelet Count 169, Mean Platelet Volume 8.3, Neutrophils (%) (Auto) 47.8, Lymphocytes (%) (Auto) 36.8, Monocytes (%) (Auto) 10.1H, Eosinophils (%) (Auto) 3.8H, Basophils (%) ( Auto) 1.6, Sodium Level 139, Potassium Level 4.2, Chloride Level 98, Carbon Dioxide Level 26, Anion Gap 15, Blood Urea Nitrogen 17, Creatinine 1.0H, Estimat Glomerular Filtration Rate > 60, Glucose Level 122H, Calcium Level 9.0 Height (Feet): 5 Height (Inches): 5.00 Weight (Pounds): 220 Objective Cv RR Lungs CTA Abd SNT. BS+ E No KOREYE OCTAVIO KAHN Feb 02, 2017 13:50
[2017-02-02] MEDS ORDERED: Miralax 17gm pkt ORAL PRN (14:00)
[2017-02-02 16:00] VITALS: BP 136/65
[2017-02-02 19:00] VITALS: BP 137/72
[2017-02-03] VITALS: BP 130/57
[2017-02-03] MEDS: Norco 10mg/325mg tab ORAL PRN ×2 (01:54→16:00)
[2017-02-03] MEDS: Potassium Chloride 30 MEQ in 1/2 NS 1000ml 1,000 ML IV SCH (03:21)
[2017-02-03] MEDS: Albuterol ud Inhalation HHN SCH ×2 (03:41→07:24)
[2017-02-03 04:00] VITALS: BP 140/74
[2017-02-03] MEDS: Glimepiride 1mg tab ORAL SCH (06:02)
[2017-02-03] MEDS: Budesonide HHN 0.25mg/2ml ud HHN SCH (07:24)
[2017-02-03 07:59] VITALS: BP 152/89
[2017-02-03] MEDS: Docusate 100mg tablet ORAL SCH (08:31)
[2017-02-03] MEDS: Lisinopril 2.5mg tab ORAL SCH (08:31)
[2017-02-03] MEDS: Cefepime HCl 1 GM in D5W 55 ML IVPB SCH (08:32)
[2017-02-03] MEDS: Flonase Nasal Inhaler 16gm NASAL SCH (09:07)
--- NOTE | 2017-02-03 10:26 | Urology Progress Note ---
Assessment/Plan Assessment/Plan 1. Nephrolithiasis with colic. 2. Left-sided hydronephrosis. 3. Mild acute kidney injury, better. 4. Hematuria. 5. History of bladder tumor. 6. POD # 4, ureteroscopy/litho/stent monitor clinically abx as ordered outpt f/u to check KUB stent removal once all stone fragments cleared Subjective Allergies: Coded Allergies: DIAZEPAM (Verified Allergy, Mild, Itching, 10/28/15) DOBUTAMINE (Verified Allergy, Unknown, 10/28/15) Subjective all noted, feels fair Objective Last 24 Hour Vital Signs Date Time Temp Pulse Resp B/P Pulse Ox O2 Delivery O2 Flow Rate FiO2 02/03/17 09:30 97.2 02/03/17 08:32 71 152/89 02/03/17 08:31 152/89 02/03/17 07:59 97.2 71 19 152/89 96 Room Air 02/03/17 07:38 75 16 100 Room Air 21 02/03/17 07:29 Room Air 02/03/17 07:26 74 16 Room Air 02/03/17 07:13 74 16 100 Room Air 02/03/17 07:06 72 16 97 Room Air 02/03/17 07:05 97 Room Air 02/03/17 04:00 97.5 67 20 140/74 94 Room Air 02/03/17 03:48 69 16 100 Room Air 02/03/17 03:41 66 16 97 Room Air 02/03/17 00:00 97.0 74 20 130/57 99 Room Air 02/02/17 22:36 75 16 99 Room Air 02/02/17 22:25 75 16 96 Room Air 02/02/17 21:50 92 16 100 Nasal Cannula 2.0 28 02/02/17 20:29 81 16 99 Room Air 02/02/17 20:15 78 16 94 Room Air 02/02/17 20:14 78 16 95 Room Air 02/02/17 20:14 Room Air 02/02/17 20:14 94 Room Air 02/02/17 19:00 97.3 76 20 137/72 92 Room Air 02/02/17 18:03 97.5 02/02/17 16:00 97.5 77 20 136/65 93 Room Air 02/02/17 15:38 79 16 Nasal Cannula 3.0 32 02/02/17 15:28 79 16 Nasal Cannula 3.0 32 02/02/17 11:59 79 16 100 Nasal Cannula 3.0 32 02/02/17 11:50 77 16 98 Nasal Cannula 3.0 32 02/02/17 11:49 97.8 77 20 144/69 96 Nasal Cannula 2.0 Intake and Output 02/02/17 02/03/17 19:00 07:00 Intake Total 1335 ml 1075 ml Balance 1335 ml 1075 ml Intake Oral 620 ml 240 ml IV Total 715 ml 835 ml # Voids 5 6 # Bowel Movements 1 Microbiology Date/Time Source Procedure Growth Status 01/28/17 21:00 Urine,Clean Catch Urine Culture - Final Escherichia Coli Complete Current Medications Medications (Trade) Dose Ordered Sig/Adrien Route PRN Reason Start Time Stop Time Status Last Admin Dose Admin Acetaminophen (Tylenol) 500 mg Q6H PRN ORAL Mild Pain/Temp > 100.5 01/28/17 05:30 02/27/17 05:29 Acetaminophen/ Hydrocodone Bitart ([place] 10/325) 1 ea Q4H PRN ORAL For Pain 01/28/17 05:30 02/04/17 05:29 02/03/17 01:54 Al Hydroxide/Mg Hydroxide (Mylanta) 30 ml TIDPRN PRN ORAL INDIGESTION/DYSPEPSIA 01/29/17 21:30 02/28/17 21:29 02/02/17 17:04 Albuterol Sulfate (Proventil) 2.5 mg Q4HRT HHN 01/29/17 11:00 02/03/17 10:59 02/03/17 07:24 Atorvastatin Calcium (Lipitor) 40 mg DAILY ORAL 01/28/17 09:00 02/27/17 08:59 02/03/17 08:30 Budesonide (Pulmicort) 0.25 mg EVERY 12 HOURS HHN 01/28/17 21:00 02/27/17 20:59 02/03/17 07:24 Cefepime HCl/ Dextrose (Maxipime/D5W) 55 ml @ 110 mls/hr Q12HR IVPB 02/02/17 21:00 02/05/17 20:59 02/03/17 08:32 Docusate Sodium (Colace) 100 mg DAILY ORAL 01/28/17 09:00 02/27/17 08:59 02/03/17 08:31 Fluticasone Propionate 1 spray 1 spray DAILY NASAL 01/28/17 09:00 02/27/17 08:59 02/03/17 09:07 Gabapentin (Neurontin) 600 mg THREE TIMES A DAY ORAL 01/28/17 09:00 02/27/17 08:59 02/03/17 08:31 Glimepiride (Amaryl) 1 mg BEFORE BREAKFAST ORAL 01/28/17 06:30 02/27/17 06:29 02/03/17 06:02 Hydrochlorothiazide (Hydrodiuril) 25 mg DAILY ORAL 01/28/17 09:00 02/27/17 08:59 02/03/17 08:31 Hydromorphone HCl (Dilaudid) 1 mg Q6H PRN IVP Severe Pain (Pain Scale 7-10) 01/28/17 05:30 02/04/17 05:29 01/31/17 00:35 Lisinopril (Zestril) 5 mg DAILY ORAL 01/28/17 09:00 02/27/17 08:59 02/03/17 08:31 Nifedipine (Procardia XL) 30 mg DAILY ORAL 01/28/17 09:00 02/27/17 08:59 02/03/17 08:32 Ondansetron HCl (Zofran) 4 mg Q6H PRN IVP Nausea & Vomiting 01/28/17 05:30 02/27/17 05:29 Pantoprazole (Protonix) 40 mg DAILY ORAL 01/30/17 09:00 03/01/17 08:59 02/03/17 08:32 Polyethylene Glycol (Miralax) 17 gm DAILYPRN PRN ORAL Constipation 02/02/17 14:00 03/04/17 13:59 02/02/17 22:08 Potassium Chloride/Sodium Chloride (KCl/0.45% NS 1000ml) 1,015 ml @ 65 mls/hr [id number] IV 01/28/17 08:00 02/27/17 07:59 02/03/17 03:21 Zolpidem Tartrate 5 mg 5 mg HSPRN PRN ORAL Insomnia 01/29/17 21:15 02/28/17 21:14 02/02/17 22:08 Height (Feet): 5 Height (Inches): 5.00 Weight (Pounds): 220 Objective exam stable SANYA PIERSON Feb 03, 2017 10:26
[2017-02-03 11:27] VITALS: BP 124/64
--- NOTE | 2017-02-03 11:46 | Cardiology Report ---
APPROVED REPORT EKG Measurement Heart [id number] Normal sinus rhythm Left axis deviation Abnormal ECG
--- NOTE | 2017-02-03 12:02 | Pulmonology Progress Note ---
Assessment/Plan Assessment/Plan IMPRESSION: 1. Renal stone with associated hydronephrosis, associated flank pain. 2. Asthma, clinically stable. 3. Mild chest tightness and cough. 4. Chronic rhinitis. 5. Hypercholesterolemia. PLAN no change in exam for now care noted same RX per pulmonary for now; no changes needed follow up clinically for changes no change for now monitor for change urology clearance pending additional therapy if needed all care reviewed patient updated as to status impression, plan, and exam edited and reviewed in detail care discussed with RN Subjective Allergies: Coded Allergies: DIAZEPAM (Verified Allergy, Mild, Itching, 10/28/15) DOBUTAMINE (Verified Allergy, Unknown, 10/28/15) Subjective comfortable doing well no distress Objective Last 24 Hour Vital Signs Date Time Temp Pulse Resp B/P Pulse Ox O2 Delivery O2 Flow Rate FiO2 02/03/17 11:27 72 16 100 Room Air 02/03/17 11:27 97.6 75 19 124/64 96 Room Air 02/03/17 11:15 70 16 97 Room Air 02/03/17 09:30 97.2 02/03/17 08:32 71 152/89 02/03/17 08:31 152/89 02/03/17 07:59 97.2 71 19 152/89 96 Room Air 02/03/17 07:38 75 16 100 Room Air 02/03/17 07:29 Room Air 02/03/17 07:26 74 16 Room Air 02/03/17 07:13 74 16 100 Room Air 02/03/17 07:06 72 16 97 Room Air 02/03/17 07:05 97 Room Air 02/03/17 04:00 97.5 67 20 140/74 94 Room Air 02/03/17 03:48 69 16 100 Room Air 02/03/17 03:41 66 16 97 Room Air 02/03/17 00:00 97.0 74 20 130/57 99 Room Air 02/02/17 22:36 75 16 99 Room Air 02/02/17 22:25 75 16 96 Room Air 02/02/17 21:50 92 16 100 Nasal Cannula 2.0 28 02/02/17 20:29 81 16 99 Room Air 02/02/17 20:15 78 16 94 Room Air 02/02/17 20:14 78 16 95 Room Air 02/02/17 20:14 Room Air 02/02/17 20:14 94 Room Air 02/02/17 19:00 97.3 76 20 137/72 92 Room Air 02/02/17 18:03 97.5 02/02/17 16:00 97.5 77 20 136/65 93 Room Air 02/02/17 15:38 79 16 Nasal Cannula 3.0 32 02/02/17 15:28 79 16 Nasal Cannula 3.0 32 Intake and Output 02/02/17 02/03/17 19:00 07:00 Intake Total 1335 ml 1075 ml Balance 1335 ml 1075 ml Intake Oral 620 ml 240 ml IV Total 715 ml 835 ml # Voids 5 6 # Bowel Movements 1 Objective HEENT: Overall negative, otherwise oropharynx is clear. No thrush. NECK: No jugular venous distention. LUNGS: Good air entry. minimal wheezes and rhonchi noted CARDIAC: Normal S1 and S2. Regular, rate, and rhythm. Soft systolic murmur, left parasternal border. No rubs or gallops. ABDOMEN: Soft and nontender. No flank tenderness. EXTREMITIES: No cyanosis or clubbing. There is trace edema. NEUROLOGIC: Grossly nonfocal. Current Medications Medications (Trade) Dose Ordered Sig/Adrien Route PRN Reason Start Time Stop Time Status Last Admin Dose Admin Acetaminophen (Tylenol) 500 mg Q6H PRN ORAL Mild Pain/Temp > 100.5 01/28/17 05:30 02/27/17 05:29 Acetaminophen/ Hydrocodone Bitart (Barton 10/325) 1 ea Q4H PRN ORAL For Pain 01/28/17 05:30 02/04/17 05:29 02/03/17 01:54 Al Hydroxide/Mg Hydroxide (Mylanta) 30 ml TIDPRN PRN ORAL INDIGESTION/DYSPEPSIA 01/29/17 21:30 02/28/17 21:29 02/02/17 17:04 Atorvastatin Calcium (Lipitor) 40 mg DAILY ORAL 01/28/17 09:00 02/27/17 08:59 02/03/17 08:30 Budesonide (Pulmicort) 0.25 mg EVERY 12 HOURS HHN 01/28/17 21:00 02/27/17 20:59 02/03/17 07:24 Cefepime HCl/ Dextrose (Maxipime/D5W) 55 ml @ 110 mls/hr Q12HR IVPB 02/02/17 21:00 02/05/17 20:59 02/03/17 08:32 Docusate Sodium (Colace) 100 mg DAILY ORAL 01/28/17 09:00 02/27/17 08:59 02/03/17 08:31 Fluticasone Propionate 1 spray 1 spray DAILY NASAL 01/28/17 09:00 02/27/17 08:59 02/03/17 09:07 Gabapentin (Neurontin) 600 mg THREE TIMES A DAY ORAL 01/28/17 09:00 02/27/17 08:59 02/03/17 08:31 Glimepiride (Amaryl) 1 mg BEFORE BREAKFAST ORAL 01/28/17 06:30 02/27/17 06:29 02/03/17 06:02 Hydrochlorothiazide (Hydrodiuril) 25 mg DAILY ORAL 01/28/17 09:00 02/27/17 08:59 02/03/17 08:31 Hydromorphone HCl (Dilaudid) 1 mg Q6H PRN IVP Severe Pain (Pain Scale 7-10) 01/28/17 05:30 02/04/17 05:29 01/31/17 00:35 Lisinopril (Zestril) 5 mg DAILY ORAL 01/28/17 09:00 02/27/17 08:59 02/03/17 08:31 Nifedipine (Procardia XL) 30 mg DAILY ORAL 01/28/17 09:00 02/27/17 08:59 02/03/17 08:32 Ondansetron HCl (Zofran) 4 mg Q6H PRN IVP Nausea & Vomiting 01/28/17 05:30 02/27/17 05:29 Pantoprazole (Protonix) 40 mg DAILY ORAL 01/30/17 09:00 03/01/17 08:59 02/03/17 08:32 Polyethylene Glycol (Miralax) 17 gm DAILYPRN PRN ORAL Constipation 02/02/17 14:00 03/04/17 13:59 02/02/17 22:08 Potassium Chloride/Sodium Chloride (KCl/0.45% NS 1000ml) 1,015 ml @ 65 mls/hr [id number] IV 01/28/17 08:00 02/27/17 07:59 02/03/17 03:21 Zolpidem Tartrate 5 mg 5 mg HSPRN PRN ORAL Insomnia 01/29/17 21:15 02/28/17 21:14 02/02/17 22:08 ARIANE MACDONALD Feb 03, 2017 12:02
--- NOTE | 2017-02-03 12:17 | Nephrology Progress Note ---
Assessment/Plan Plan L RenaL Colic -s/p Cysto + stenting By Dr Perez. Creatinine going wenceslao. Today 1.0 OK for DC home. Subjective Subjective Not passing stones anymore. Less epigastric dyscomfort. Objective Objective Last 24 Hour Vital Signs Date Time Temp Pulse Resp B/P Pulse Ox O2 Delivery O2 Flow Rate FiO2 02/03/17 11:27 72 16 100 Room Air 02/03/17 11:27 97.6 75 19 124/64 96 Room Air 02/03/17 11:15 70 16 97 Room Air 02/03/17 09:30 97.2 02/03/17 08:32 71 152/89 02/03/17 08:31 152/89 02/03/17 07:59 97.2 71 19 152/89 96 Room Air 02/03/17 07:38 75 16 100 Room Air 21 02/03/17 07:29 Room Air 02/03/17 07:26 74 16 Room Air 02/03/17 07:13 74 16 100 Room Air 02/03/17 07:06 72 16 97 Room Air 02/03/17 07:05 97 Room Air 02/03/17 04:00 97.5 67 20 140/74 94 Room Air 02/03/17 03:48 69 16 100 Room Air 02/03/17 03:41 66 16 97 Room Air 02/03/17 00:00 97.0 74 20 130/57 99 Room Air 02/02/17 22:36 75 16 99 Room Air 02/02/17 22:25 75 16 96 Room Air 02/02/17 21:50 92 16 100 Nasal Cannula 2.0 28 02/02/17 20:29 81 16 99 Room Air 02/02/17 20:15 78 16 94 Room Air 02/02/17 20:14 78 16 95 Room Air 02/02/17 20:14 Room Air 02/02/17 20:14 94 Room Air 02/02/17 19:00 97.3 76 20 137/72 92 Room Air 02/02/17 18:03 97.5 02/02/17 16:00 97.5 77 20 136/65 93 Room Air 02/02/17 15:38 79 16 Nasal Cannula 3.0 32 02/02/17 15:28 79 16 Nasal Cannula 3.0 32 Intake and Output 02/02/17 02/03/17 19:00 07:00 Intake Total 1335 ml 1075 ml Balance 1335 ml 1075 ml Intake Oral 620 ml 240 ml IV Total 715 ml 835 ml # Voids 5 6 # Bowel Movements 1 Height (Feet): 5 Height (Inches): 5.00 Weight (Pounds): 220 Objective Cv RR Lungs CTA Abd SNT. BS+ E No CCE OCTAVIO KAHN Feb 03, 2017 12:17
[2017-02-03 16:00] VITALS: BP 130/94
[2017-02-03] MEDS ORDERED: Tubing IV Secondary IV ONE (17:39)
--- NOTE | 2017-02-05 11:21 | Discharge Summary ---
Discharge Summary Hospital Course Date of Admission Jan 28, 2017 at 00:44 Date of Discharge Feb 03, 2017 at 19:11 Admitting Diagnosis ARF, kidney stone HPI Ann-Marie Mon is a 66 year old female who was admitted on Jan 28, 2017 at 00: 44 for Acute Renal Failure,Kidney Stone Hospital Course [id number] Discharge Discharge Disposition Patient was discharged to Home (01) Discharge Diagnoses: Shana Santiago NP Feb 05, 2017 11:21
--- NOTE | 2017-02-06 02:28 | Discharge Summary 2 SIG ---
DATE OF ADMISSION: 01/28/2017 DATE OF DISCHARGE: 02/03/2017 CONSULTANTS: 1. Aly Perez M.D. 2. Isra Conn M.D. BRIEF HOSPITAL COURSE: The patient is a 66-year-old female, who presented to ED complaining of severe pain. CAT scan of the abdomen and pelvis without contrast showed a 9 mm left ureteropelvic junction calculus with mild to moderate hydronephrosis and swelling of the left kidney, bilateral intrarenal calculi, largely on the left than on right and 9 mm left lung nodule. She was admitted to Medical/Surgical. Dr. Perez was consulted. The stone is large and would not pass naturally. She was given IV hydration, pain management, and underwent cystoscopy, left ureteroscopy, laser lithotripsy, shockwave lithotripsies, stone extraction, retrograde pyelogram, and placement of double-J stent on 01/30/[address] Conn was also consulted. The patient has a history of PET positive lung nodule and has undergone lung biopsy in 2016. She also has asthma and was given Pulmicort twice a day, albuterol inhaler, and QVAR at bedtime. Post cystoscopy, she was given a cefepime and has been passing stones. Creatinine trended down. She was eventually discharged home. Advised stent removal once all fragments have been cleared. FINAL DIAGNOSES: 1. Left renal colic with nephrolithiasis. 2. Left-sided hydronephrosis. 3. Status post cystoscopy, ureteroscopy, lithotripsy, and stent placement. 4. Acute kidney injury. 5. Hematuria. 6. History of bladder tumour. 7. Asthma. 8. Chronic rhinitis. 9. Hypercholesterolemia. Nieves Nielsen M.D. I have been assigned to dictate discharge summary on this account and I was not involved in the patient's management. Shana Santiago N.P. DR: FANNY JOB#: [id number] CC: KENNA
[2017-02-09 15:14] LABS: CA OXALATE MONODYRD 85 % (.); STONE COLOR Brown (.); STONE COMMENT Note: (.); STONE WEIGHT <10 mg (.); URIC ACID 10 % (.)
== END 2017-02-03 19:11 | disposition home or self-care (01) | DRG 669 ==
LOC: EMR 21:25 → 4W 01-28 00:44 → EDBEDREQ 01-28 02:13 → 4E 02-01 07:15
PROC: BT1FZZZ Fluoroscopy of Left Kidney, Ureter and Bladder (ICD-10-PCS; principal; 2017-01-30 13:30)
PROC: 0TC78ZZ Extirpation of Matter from Left Ureter, Via Natural or Artificial Opening Endoscopic (ICD-10-PCS; principal; 2017-01-30 13:30)
PROC: 0TC48ZZ Extirpation of Matter from Left Kidney Pelvis, Via Natural or Artificial Opening Endoscopic (ICD-10-PCS; principal; 2017-01-30 13:30)
PROC: 0T778DZ Dilation of Left Ureter with Intraluminal Device, Via Natural or Artificial Opening Endoscopic (ICD-10-PCS; principal; 2017-01-30 13:30)
DX: N13.2 Hydronephrosis with renal and ureteral calculous obstruction (principal); N17.9 Acute kidney failure, unspecified; J44.9 Chronic obstructive pulmonary disease, unspecified; I11.9 Hypertensive heart disease without heart failure; G62.9 Polyneuropathy, unspecified; E11.9 Type 2 diabetes mellitus without complications; J45.909 Unspecified asthma, uncomplicated; J31.0 Chronic rhinitis; R91.1 Solitary pulmonary nodule; R31.9 Hematuria, unspecified
CPT/HCPCS: 36415; 71020; 74176; 80048; 80053; 81001; 81003; 82360; 82962; 83690; 84484; 84550; 85025; 87086; 87181; 93005; 94003; 94150; 94640; 94664; 94760; J2250; J2710

== ENCOUNTER 2017-02-09 16:26 | Emergency (ER) | payer MEDICARE, MEDICAID ==
[~2017-02-09] VITALS: Ht 165.1 cm; Wt 100.7 kg
--- NOTE | 2017-02-09 16:50 | Emergency Room Report ---
History of Present Illness General Chief Complaint: Abdominal Pain Source: Patient Present Illness HPI Patient had a left-sided ureteral stent placed approximately 8 days ago Presents now with increased diarrhea and chills home health nurse had seen the patient at her home and given the complaints was sent to the ER Patient denies any obvious fevers denies any chest pain or shortness of breath She thought that she some fullness in the suprapubic area but denies any flank pain Denies any blood in the diarrhea Denies any recent travel Allergies: Coded Allergies: DIAZEPAM (Verified Allergy, Mild, Itching, 10/28/15) DOBUTAMINE (Verified Allergy, Unknown, 10/28/15) Patient History Past Medical History: see triage record Pertinent Family History: none Reviewed Nursing Documentation: PMH: Agreed, PSxH: Agreed Nursing Documentation-PMH Hx Cardiac Problems: No Hx Hypertension: Yes Hx Asthma: Yes Hx Diabetes: Yes Hx Cancer: No Hx Gastrointestinal Problems: Yes Hx Neurological Problems: No Review of Systems All Other Systems: negative except mentioned in HPI Physical Exam Vital Signs Date Time Temp Pulse Resp B/P Pulse Ox O2 Delivery O2 Flow Rate FiO2 02/09/17 16:33 97.9 74 20 142/74 100 Room Air Sp02 EP Interpretation: reviewed, normal General Appearance: well appearing, no apparent distress Head: normocephalic, atraumatic Eyes: bilateral eye EOMI, bilateral eye PERRL ENT: hearing grossly normal, normal pharynx, TMs + canals normal, uvula midline Neck: full range of motion, supple, no meningismus, no bony tend Respiratory: lungs clear, normal breath sounds, no rhonchi, no respiratory distress, no retraction, no accessory muscle use Cardiovascular #1: normal peripheral pulses, regular rate, rhythm, no edema, no gallop, no JVD, no murmur Gastrointestinal: normal bowel sounds, non tender, soft, no mass, no organomegaly, non-distended, no guarding, no hernia, no pulsatile mass, no rebound Genitourinary: no CVA tenderness Musculoskeletal: normal inspection Neurologic: oriented x3, responsive, waiter/waitress cabin class III-XII nml as tested, motor strength/ tone normal, sensory intact Psychiatric: mood/affect normal Skin: normal color, no rash, warm/dry, palpation normal Lymphatic: normal inspection, no adenopathy Medical Decision Making Diagnostic Impression: Primary Impression: UTI (urinary tract infection) Additional Impression: Diarrhea ER Course Multiple differentials considered including but not limited to, sepsis, C. difficile, UTI Patient has done well throughout her stay Blood work is appropriate urine sample does show evidence of few bacteria Given the patient's recent stent placement she was given oral and IV antibiotics I did contact the patient's urologist Who feels also appropriate with close outpatient followup Labs Test 02/09/17 16:40 02/09/17 16:45 Urine Color Pale yellow Urine Appearance Slightly cloudy Urine pH 5 (4.5-8.0) Urine Specific Saffell 1.015 (1.005-1.035) Urine Protein 2+ (NEGATIVE) Urine Glucose (UA) Negative (NEGATIVE) Urine Ketones Negative (NEGATIVE) Urine Occult Blood 2+ (NEGATIVE) Urine Nitrite Negative (NEGATIVE) Urine Bilirubin Negative (NEGATIVE) Urine Urobilinogen Normal MG/DL (0.0-1.0) Urine Leukocyte Esterase 3+ (NEGATIVE) Urine RBC 5-10 /HPF (0 - 2) Urine WBC 15-20 /HPF (0 - 2) Urine Squamous Epithelial Cells Few /LPF (NONE/OCC) Urine Bacteria Moderate /HPF (NONE) White Blood Count 6.8 K/UL (4.8-10.8) Red Blood Count 4.75 M/UL (4.20-5.40) Hemoglobin 13.3 G/DL (12.0-16.0) Hematocrit 41.0 % (37.0-47.0) Mean Corpuscular Volume 86 FL (80-99) Mean Corpuscular Hemoglobin 28.0 PG (27.0-31.0) Mean Corpuscular Hemoglobin Concent 32.4 G/DL (32.0-36.0) Red Cell Distribution Width 13.4 % (11.6-14.8) Platelet Count 321 K/UL (150-450) Mean Platelet Volume 9.0 FL (6.5-10.1) Neutrophils (%) (Auto) 51.4 % (45.0-75.0) Lymphocytes (%) (Auto) 40.0 % (20.0-45.0) Monocytes (%) (Auto) 5.4 % (1.0-10.0) Eosinophils (%) (Auto) 1.9 % (0.0-3.0) Basophils (%) (Auto) 1.2 % (0.0-2.0) Sodium Level 141 mEQ/L (135-145) Potassium Level 3.5 mEQ/L (3.4-4.9) Chloride Level 98 mEQ/L (98-107) Carbon Dioxide Level 26 mEQ/L (20-30) Anion Gap 17 (5-15) Blood Urea Nitrogen 17 mg/dL (7-23) Creatinine 1.0 mg/dL (0.5-0.9) Estimat Glomerular Filtration Rate > 60 mL/min (>60) Glucose Level 100 mg/dL (74-106) Lactic Acid Level 1.50 mmol/L (0.66-2.22) Calcium Level 10.7 mg/dL (8.6-10.2) Total Bilirubin 0.3 mg/dL (0.0-1.2) Aspartate Amino Transf (AST/SGOT) 19 U/L (5-40) Alanine Aminotransferase (ALT/SGPT) 24 U/L (3-33) Alkaline Phosphatase 69 U/L (35-104) Total Creatine Kinase 146 U/L (26-140) Creatine Kinase MB 3.1 ng/mL (< 3.8) Creatine Kinase MB Relative Index 2.1 Total Protein 8.7 g/dL (6.6-8.7) Albumin 4.5 g/dL (3.5-5.2) Globulin 4.2 g/dL Albumin/Globulin Ratio 1.0 (1.0-2.7) Lipase 57 U/L (< 60) Rhythm Strip Diag. Results EP Interpretation: yes Rate: 78 Rhythm: NSR, no PVC's, no ectopy Last Vital Signs Date Time Temp Pulse Resp B/P Pulse Ox O2 Delivery O2 Flow Rate FiO2 02/09/17 16:33 97.9 74 20 142/74 100 Room Air Status: improved Disposition: HOME, SELF-CARE Condition: Improved Scripts Cephalexin* (KEFLEX*) 500 Mg Capsule 500 MG ORAL Q6H, #28 CAP 0 Refills Prov: YARITZA VALLES D.O. 02/09/17 Additional Instructions: Patient is provided with the discharge instructions notified to follow up with primary doctor in the next 2-3 days otherwise return to the er with any worsening symptoms. Please note that this report is being documented using [employer] technology. This can lead to erroneous entry secondary to incorrect interpretation by the dictating instrument. YARITZA VALLES D.O. Feb 09, 2017 16:50
[2017-02-09 16:59] LABS: BASOPHILS % (AUTO) 1.2 % (0.0-2.0); EOSINOPHILS % (AUTO) 1.9 % (0.0-3.0); MEAN CORPUSCULAR HGB CONC 32.4 G/DL (32.0-36.0); MEAN CORPUSCULAR VOLUME 86 FL (80-99); MONOCYTES % (AUTO) 5.4 % (1.0-10.0); NEUTROPHILS % (AUTO) 51.4 % (45.0-75.0); PLATELET COUNT 321 K/UL (150-450); RED BLOOD COUNT 4.75 M/UL (4.20-5.40); RED CELL DISTRIBUTION WIDTH 13.4 % (11.6-14.8); WHITE BLOOD COUNT 6.8 K/UL (4.8-10.8)
[2017-02-09 17:12] LABS: APPEARANCE,URINE SLIGHTLY CLOUDY; KETONES,URINE NEGATIVE (NEGATIVE); LEUKOCYTE ESTERASE ,URINE 3+ (NEGATIVE); NITRITE,URINE NEGATIVE (NEGATIVE); PH,URINE 5 (4.5-8.0); PROTEIN,URINE 2+ (NEGATIVE); UROBILINOGEN,URINE NORMAL MG/DL (0.0-1.0)
[2017-02-09 17:15] LABS: ALANINE AMINOTRANSFERASE 24 U/L (3-33); ANION GAP 17 (5-15); ASPARTATE AMINO TRANSFERASE 19 U/L (5-40); CALCIUM 10.7 mg/dL (8.6-10.2); CARBON DIOXIDE 26 mEQ/L (20-30); CHLORIDE 98 mEQ/L (98-107); GLOMERULAR FILTRATION RATE > 60 mL/min (>60); HEMOLYSIS 1; LIPASE 57 U/L (< 60); POTASSIUM 3.5 mEQ/L (3.4-4.9); SODIUM 141 mEQ/L (135-145); TOTAL PROTEIN 8.7 g/dL (6.6-8.7)
[2017-02-09 17:25] LABS: CKMB 3.1 ng/mL (< 3.8)
[2017-02-09 17:52] LABS: BACTERIA,URINE MODERATE /HPF; SQUAMOUS EPITHELIAL CELL,UR FEW /LPF (NONE/OCC); WBC,URINE 15-20 /HPF (0 - 2)
[2017-02-09] MEDS ORDERED: cefTRIAXone 1 GM in NS 55 ML IVPB ONE (18:00)
[2017-02-09] MEDS ORDERED: KEFLEX500 MG ORAL (18:10)
[2017-02-09 18:52] VITALS: BP 135/75
[2017-02-09 18:55] VITALS: BP 135/75
--- NOTE | 2017-02-10 11:01 | Cardiology Report ---
APPROVED REPORT EKG Measurement Heart [id number] Normal sinus rhythm Possible Anterior infarct, age undetermined Abnormal ECG
== END 2017-02-09 18:55 | disposition home or self-care (01) ==
LOC: EMR 16:49
DX: N39.0 Urinary tract infection, site not specified (principal); R19.7 Diarrhea, unspecified; I10 Essential (primary) hypertension; E11.9 Type 2 diabetes mellitus without complications; J45.909 Unspecified asthma, uncomplicated; Z88.8 Allergy status to other drugs, medicaments and biological substances
CPT/HCPCS: 36415; 80053; 81003; 82550; 82553; 83605; 83690; 85025; 87040; 87086; 87181; 93005; 96374; 96375; 99284; J0696

== ENCOUNTER 2017-04-01 05:06 | Day surgery (SDC) | payer MEDICARE, MEDICAID ==
[~2017-04-01] VITALS: Ht 165.1 cm; Wt 93.9 kg
[2017-04-01] VITALS (11 sets, daily range): BP systolic 132–156; BP diastolic 64–88
[~2017-04-01 05:06] MED LIST changes: +KEFLEX500 MG ORAL
[2017-04-01] MEDS ORDERED: NS Irrig 4000ml IRRIG ONE (05:07)
[2017-04-01] MEDS ORDERED: Propofol 10mg/ml 20ml IV ONE (05:07)
[2017-04-01] MEDS ORDERED: Lidocaine 1% MPF 10mg/ml 5ml ONE (05:07)
[2017-04-01] MEDS ORDERED: fentaNYL 100 mcg/2 mL IV ONE (05:07)
[2017-04-01] MEDS ORDERED: Midazolam 2mg/2ml Inj ONE (05:07)
[2017-04-01] MEDS ORDERED: NS Irrig 1000ml ONE (05:07)
[2017-04-01 06:02] LABS: BASOPHILS % (AUTO) 0.8 % (0.0-2.0); EOSINOPHILS % (AUTO) 1.2 % (0.0-3.0); LYMPHOCYTES % (AUTO) 28.7 % (20.0-45.0); MEAN CORPUSCULAR HEMOGLOBIN 27.1 PG (27.0-31.0); MEAN CORPUSCULAR HGB CONC 31.1 G/DL (32.0-36.0); MEAN CORPUSCULAR VOLUME 87 FL (80-99); MEAN PLATELET VOLUME 9.3 FL (6.5-10.1); MONOCYTES % (AUTO) 9.1 % (1.0-10.0); NEUTROPHILS % (AUTO) 60.3 % (45.0-75.0); PLATELET COUNT 249 K/UL (150-450); RED BLOOD COUNT 4.39 M/UL (4.20-5.40); RED CELL DISTRIBUTION WIDTH 13.3 % (11.6-14.8); WHITE BLOOD COUNT 7.8 K/UL (4.8-10.8)
[2017-04-01 06:15] LABS: PROTHROMBIN TIME 10.3 SEC (9.30-11.50)
[2017-04-01 06:20] LABS: CALCIUM 10.2 mg/dL (8.6-10.2); CREATININE 1.2 mg/dL (0.5-0.9); GLOMERULAR FILTRATION RATE 54.3 mL/min (>60); POTASSIUM 3.4 mEQ/L (3.4-4.9)
[2017-04-01] MEDS ORDERED: Iothalamate Meglumine 60% 30ML INJ ONE (06:27)
--- NOTE | 2017-04-01 06:47 | Anethesia Preoperative Eval ---
Anesthesia Pre-op PMH/ROS General Date of Evaluation: April 01, 2017 Anesthesiologist: Johnnie Mallampati Score Class I : Soft palate, uvula, fauces, pillars visible Class II: Soft palate, uvula, fauces visible Class III: Soft palate, base of uvula visible Class IV: Only hard plate visible Mallampati Classification: Class II Surgeon: Ana Diagnosis: Renal stone Surgical Procedure: Cystoscopy Anesthesia History: none Family History: no anesthesia problems Allergies: Coded Allergies: DIAZEPAM (Verified Allergy, Mild, Itching, 10/28/15) DOBUTAMINE (Verified Allergy, Unknown, 10/28/15) Medications: see eMAR Past Medical History Cardiovascular: Reports: CAD - s/p PCI X3, HTN, other - HLD, Denies: VA, arrhythmia, valve dz Pulmonary: Reports: COPD, asthma, Denies: PHILIPPE, other Gastrointestinal/Genitourinary: Reports: GERD, Denies: CRI, ESRD, other Neurologic/Psychiatric: Reports: depression/anxiety, Denies: CVA, TIA, dementia, other Endocrine: Reports: DM, hypothyroidism, Denies: other, steroids HEENT: Denies: [place] (L), PAI[place] (R), cataract (L), cataract (R), glaucoma, other Hematology/Immune: Denies: DVT, anemia, bleeding disorder, other Musculoskeletal/Integumentary: Reports: OA, Denies: DDD, DJD, RA, edema, other Other: obesity PSxH Narrative: Ventral hernia repair, lap manju, left THR, cysto, lithotripsy Anesthesia Pre-op Phys. Exam Physician Exam Last Vital Signs Date Time Temp Pulse Resp B/P Pulse Ox O2 Delivery O2 Flow Rate FiO2 04/01/17 06:10 97.3 79 18 156/80 98 Room Air Constitutional: NAD Cardiovascular: RRR Respiratory: CTA Airway Exam Mallampati Score: Class II MO: limited ROM: full Anesthesia Pre-op A/P Labs Hematology Test 04/01/17 05:40 White Blood Count 7.8 K/UL (4.8-10.8) Red Blood Count 4.39 M/UL (4.20-5.40) Hemoglobin 11.9 G/DL (12.0-16.0) L Hematocrit 38.2 % (37.0-47.0) Mean Corpuscular Volume 87 FL (80-99) Mean Corpuscular Hemoglobin 27.1 PG (27.0-31.0) Mean Corpuscular Hemoglobin Concent 31.1 G/DL (32.0-36.0) L Red Cell Distribution Width 13.3 % (11.6-14.8) Platelet Count 249 K/UL (150-450) Mean Platelet Volume 9.3 FL (6.5-10.1) Neutrophils (%) (Auto) 60.3 % (45.0-75.0) Lymphocytes (%) (Auto) 28.7 % (20.0-45.0) Monocytes (%) (Auto) 9.1 % (1.0-10.0) Eosinophils (%) (Auto) 1.2 % (0.0-3.0) Basophils (%) (Auto) 0.8 % (0.0-2.0) Coagulation Test 04/01/17 05:40 Prothrombin Time 10.3 SEC (9.30-11.50) Prothromb Time International Ratio 1.0 (0.9-1.1) Activated Partial Thromboplast Time 27 SEC (23-33) Chemistry Test 04/01/17 05:40 Sodium Level 135 mEQ/L (135-145) Potassium Level 3.4 mEQ/L (3.4-4.9) Chloride Level 93 mEQ/L (98-107) L Carbon Dioxide Level 24 mEQ/L (20-30) Anion Gap 18 (5-15) H Blood Urea Nitrogen 20 mg/dL (7-23) Creatinine 1.2 mg/dL (0.5-0.9) H Estimat Glomerular Filtration Rate 54.3 mL/min (>60) Glucose Level 106 mg/dL (74-106) Calcium Level 10.2 mg/dL (8.6-10.2) Studies Pre-op Studies: EKG - sr Risk Assessment & Plan Assessment: ASA III Plan: GA Status Change Before Surgery: No Pre-Antibiotics Drug: Ancef 2g Given Within 1 Hr of Incision: Yes Time Given: 07:30 ROSS HAYES M.D. April 01, 2017 06:47
[2017-04-01] MEDS ORDERED: ceFAZolin sod 1 GM in NS 55 ML IVPB ONE (07:00)
--- NOTE | 2017-04-01 07:11 | Urology Progress Note ---
Subjective Allergies: Coded Allergies: DIAZEPAM (Verified Allergy, Mild, Itching, 10/28/15) DOBUTAMINE (Verified Allergy, Unknown, 10/28/15) Objective Last 24 Hour Vital Signs Date Time Temp Pulse Resp B/P Pulse Ox O2 Delivery O2 Flow Rate FiO2 04/01/17 06:10 97.3 79 18 156/80 98 Room Air Current Medications Medications (Trade) Dose Ordered Sig/Adrien Route PRN Reason Start Time Stop Time Status Last Admin Dose Admin Cefazolin Sodium/ Sodium Chloride (Ancef/Sodium Chloride) 55 ml @ 110 mls/hr ONCE ONCE IVPB 04/01/17 07:00 04/01/17 07:29 Laboratory Tests 04/01/17 05:40: White Blood Count 7.8, Red Blood Count 4.39, Hemoglobin 11.9L, Hematocrit 38.2, Mean Corpuscular Volume 87, Mean Corpuscular Hemoglobin 27.1, Mean Corpuscular Hemoglobin Concent 31.1L, Red Cell Distribution Width 13.3, Platelet Count 249, Mean Platelet Volume 9.3, Neutrophils (%) (Auto) 60.3, Lymphocytes (%) (Auto) 28.7, Monocytes (%) (Auto) 9.1, Eosinophils (%) (Auto) 1.2, Basophils (%) (Auto ) 0.8, Prothrombin Time 10.3, Prothromb Time International Ratio 1.0, Activated Partial Thromboplast Time 27, Sodium Level 135, Potassium Level 3.4, Chloride Level 93L, Carbon Dioxide Level 24, Anion Gap 18H, Blood Urea Nitrogen 20, Creatinine 1.2H, Estimat Glomerular Filtration Rate 54.3, Glucose Level 106, Calcium Level 10.2 Height (Feet): 5 Height (Inches): 5.00 Weight (Pounds): 207 SANYA PIERSON April 01, 2017 07:11
--- NOTE | 2017-04-01 07:13 | Pre-Procedure Note/Attestation ---
Pre-Procedure Note/Attestation Complete Prior to Procedure Planned Procedure: left Procedure Narrative: cystoscopy, laser cystolitholapaxy, removal of left ureteral stent, possible ureteroscopy Indications for Procedure Pre-Operative Diagnosis: hx of left nephrolithiasis, s/p lithotripsy, indwelling left ureteral stent with encrustations Attestation I attest that I discussed the nature of the procedure; its benefits; risks and complications; and alternatives (and the risks and benefits of such alternatives ), prior to the procedure, with the patient (or the patient's legal solar sales representative and assessor). I attest that, if there was a reasonable possibility of needing a blood transfusion, the patient (or the patient's legal solar sales representative and assessor) was given the [place] [employer] standardized written summary, pursuant to the [place] Blood Safety Act ([place] Health and Safety Code # 1645, as amended). I attest that I re-evaluated the patient just prior to the surgery and that there has been no change in the patient's H&P, except as documented below: n/a SANYA PIERSON April 01, 2017 07:13
[2017-04-01] MEDS ORDERED: LR 1000ml 1,000 ML IVLG SCH (07:15)
[2017-04-01] MEDS ORDERED: fentaNYL 100 mcg/2 mL IV PRN (07:15)
[2017-04-01] MEDS ORDERED: Hydromorphone 0.5mg/0.5ml inj IVP PRN (07:15)
[2017-04-01] MEDS ORDERED: DiphenhydrAMINE 50mg/ml Inj IVP PRN (07:15)
--- NOTE | 2017-04-01 08:05 | Brief Operative Note ---
Immediate Post Operative Note Operative Note Pre-op Diagnosis: hx of left nephrolithiasis, s/p lithotripsy, indwelling left ureteral stent with encrustations Procedure: cystoscopy, laser litholapaxy, removal of stent, ureteroscopy Post-op Diagnosis: same as pre-op Surgeon: arielle Anesthesiologist: sona Anesthesia: general Specimen: yes Complications: none Condition: stable Estimated Blood Loss: none Drains: none Implant(s) used?: No SANYA PIERSON April 01, 2017 08:05
--- NOTE | 2017-04-01 08:12 | Immediate Post-Op Evaluation ---
Immediate Post-Op Evalulation Immediate Post-Op Evalulation Procedure: Cystoscopy, stent removal left Date of Evaluation: April 01, 2017 Time of Evaluation: 08:12 IV Fluids: 500 Blood Products: 0 Estimated Blood Loss: min Urinary Output: 0 Blood Pressure Systolic: 144 Blood Pressure Diastolic: 71 Pulse Rate: 72 Respiratory Rate: 16 O2 Sat by Pulse Oximetry: 98 Temperature (Fahrenheit): 97.3 Pain Score (1-10): 0 Nausea: No Vomiting: No Complications 0 Patient Status: awake, reacts, patent, extubated, none Hydration Status: adequate Drug: Ancef 2g Given Within 1 Hr of Incision: Yes Time Given: 07:30 ROSS HAYES M.D. April 01, 2017 08:12
[2017-04-01] MEDS ORDERED: Norco 5mg/325mg tab ORAL PRN (08:15)
--- NOTE | 2017-04-01 14:20 | Diagnostic Imaging Report ---
Indication: Abdominal pain Comparison: None Fluoroscopic images of the lower abdomen/pelvis Left ureteral stent removal noted on fluoroscopically obtained images during the procedure. Impression: Stent removal
[2017-04-01] MEDS ORDERED: HYDROmorphone 1mg/ml Carpuject SUBQ PRN (15:00)
[2017-04-01] MEDS ORDERED: Tylenol #3 tab (300mg/30mg) ORAL PRN (15:00)
[2017-04-01] MEDS ORDERED: D5 1/2NS 1,000 ML IV SCH (15:00)
[2017-04-02 15:22] VITALS: BP 155/79
--- NOTE | 2017-04-02 15:22 | 48 Hour Post Anesthesia Eval ---
Post Anesthesia Evaluation Procedure: Cystoscopy, stent removal left Date of Evaluation: April 02, 2017 Time of Evaluation: 11:45 Blood Pressure Systolic: 155 0: 79 Pulse Rate: 70 Respiratory Rate: 18 Temperature (Fahrenheit): 97 O2 Sat by Pulse Oximetry: 97 Airway: patent Nausea: No Vomiting: No Pain Intensity: 0 Hydration Status: adequate Cardiopulmonary Status: at baseline Mental Status/LOC: patient returned to baseline Post-Anesthesia Complications: 0 Follow-up care needed: ready to discharge ROSS HAYES M.D. April 02, 2017 15:22
--- NOTE | 2017-04-02 23:01 | Operative Note - Dictated ---
DATE OF OPERATION: 04/01/2017 PREOPERATIVE DIAGNOSIS: History of left nephrolithiasis, status post lithotripsy with indwelling left ureteral stent with bladder calculi and encrustations in the distal part of the stent. POSTOPERATIVE DIAGNOSIS: History of left nephrolithiasis, status post lithotripsy with indwelling left ureteral stent with bladder calculi and encrustations in the distal part of the stent. PROCEDURE PERFORMED: Cystoscopy with calibration, laser cystolitholapaxy, removal of left ureteral stent, left ureteroscopy. SURGEON: Aly Perez M.D. ANESTHESIOLOGIST: Dr. Lemus ANESTHESIA: General. INDICATION FOR PROCEDURE: The patient is a pleasant 66-year-old female. She has a history of multiple left renal calculi with hydronephrosis. She is about 2 months status post lithotripsy with both laser as well as shockwave and stent placement. The stone fragments have, for the most part, cleared. The patient came to the office last week for stent removal and a fair amount of encrustations was noted on the distal part of the stent and overall, an attempt was made to remove the stent in the office, however, the patient could not relax well and there was a fair amount of encrustations and I was not able to remove the stent. As such, she requested to be scheduled in the hospital with general anesthesia and as such, she was scheduled for the above procedure. Possible risks and complications of bleeding, infection, anesthesia, damage to the urethra, bladder, ureter etc. were discussed. No guarantees were given or implied. FINDINGS: Encrustations on the distal part of the stent. Stent was removed intact. Ureteroscopy did not reveal any residue involving the ureter. PROCEDURE IN DETAIL: Informed consent was obtained from the patient. The patient was brought to the operating room and placed in supine position. Successful general anesthesia was induced. The patient was placed in a modified dorsal lithotomy position and her genitalia was prepped and draped in the usual sterile fashion. Preoperative IV antibiotics were administered. Time-out was performed. At this point, the urethral meatus was gently dilated. Cystoscopy was performed. The bladder was irrigated. The distal part of the stent was visualized. There was a fair amount of encrustations noted. At this point, using the holmium laser fiber, the encrustations were sequentially taken down. There was some changes on the left ureteral orifice. At this point, I was able to grab the stent with a grasper and was pulled out intact. The residual calcifications were evacuated from the bladder. At this point, the ureteroscopy was performed and I was able to get into the ureter without difficulty as it was dilated because of recent stent. The ureteroscopy did not reveal any residual fragments along the length of the ureter. The scope was then removed. The bladder was emptied. The patient was awakened and taken to the recovery room in stable condition. Blood loss was minimal. No complication. Aly Perez M.D. DR: Jason JOB#: [id number] CC: Nieves Nielsen M.D.; Fax#: [phone]
== END 2017-04-01 11:30 | disposition home or self-care (01) ==
LOC: SUR 05:06
DX: Z46.6 Encounter for fitting and adjustment of urinary device (principal); N21.0 Calculus in bladder; I10 Essential (primary) hypertension; K21.9 Gastro-esophageal reflux disease without esophagitis; J44.9 Chronic obstructive pulmonary disease, unspecified; I25.10 Atherosclerotic heart disease of native coronary artery without angina pectoris; Z98.61 Coronary angioplasty status; E78.5 Hyperlipidemia, unspecified; F32.9 Major depressive disorder, single episode, unspecified; F41.9 Anxiety disorder, unspecified; E11.9 Type 2 diabetes mellitus without complications; E03.9 Hypothyroidism, unspecified; M19.90 Unspecified osteoarthritis, unspecified site; E66.9 Obesity, unspecified; Z96.641 Presence of right artificial hip joint; Z88.8 Allergy status to other drugs, medicaments and biological substances
CPT/HCPCS: 36415; 74020; 76000; 80048; 82962; 85025; 85610; 85730; 94003; 94150; J2250

== ENCOUNTER 2017-04-19 12:54 | Emergency (ER) | payer MEDICARE, MEDICAID ==
[~2017-04-19] VITALS: Ht 165.1 cm; Wt 90.7 kg
[2017-04-19] MEDS ORDERED: Morphine Sulfate 2mg/ml Inj IVP ONE (13:30)
[2017-04-19 13:31] VITALS: BP 118/51
[2017-04-19 13:46] LABS: BASOPHILS % (AUTO) 0.9 % (0.0-2.0); EOSINOPHILS % (AUTO) 1.7 % (0.0-3.0); LYMPHOCYTES % (AUTO) 26.3 % (20.0-45.0); MEAN CORPUSCULAR HEMOGLOBIN 27.2 PG (27.0-31.0); MEAN CORPUSCULAR HGB CONC 32.7 G/DL (32.0-36.0); MEAN CORPUSCULAR VOLUME 83 FL (80-99); MEAN PLATELET VOLUME 8.2 FL (6.5-10.1); MONOCYTES % (AUTO) 6.9 % (1.0-10.0); NEUTROPHILS % (AUTO) 64.2 % (45.0-75.0); PLATELET COUNT 373 K/UL (150-450); RED BLOOD COUNT 4.24 M/UL (4.20-5.40); RED CELL DISTRIBUTION WIDTH 12.7 % (11.6-14.8); WHITE BLOOD COUNT 6.7 K/UL (4.8-10.8)
[2017-04-19 14:01] LABS: TROPONIN I < 0.30 ng/mL (<=0.30)
[2017-04-19 14:05] LABS: ALBUMIN/GLOBULIN RATIO 0.6 (1.0-2.7); CALCIUM 10.1 mg/dL (8.6-10.2); CREATININE 1.4 mg/dL (0.5-0.9); GLOMERULAR FILTRATION RATE 45.5 mL/min (>60); POTASSIUM 4.6 mEQ/L (3.4-4.9); TOTAL PROTEIN 8.7 g/dL (6.6-8.7)
[2017-04-19 14:10] LABS: APPEARANCE,URINE SLIGHTLY CLOUDY; KETONES,URINE NEGATIVE (NEGATIVE); LEUKOCYTE ESTERASE ,URINE 3+ (NEGATIVE); NITRITE,URINE NEGATIVE (NEGATIVE); PH,URINE 8 (4.5-8.0); PROTEIN,URINE NEGATIVE (NEGATIVE); UROBILINOGEN,URINE NORMAL MG/DL (0.0-1.0)
[2017-04-19 14:21] LABS: BACTERIA,URINE FEW /HPF; RBC,URINE 0-2 /HPF (0 - 2); SQUAMOUS EPITHELIAL CELL,UR FEW /LPF (NONE/OCC)
[2017-04-19] MEDS ORDERED: DiphenhydrAMINE 50mg/ml Inj IVP ONE (14:30)
--- NOTE | 2017-04-19 14:54 | Emergency Room Report ---
History of Present Illness General Chief Complaint: Abdominal Pain Source: Patient Present Illness HPI [id number] with 2 days abd pain with "some diarrhea." No nausea/vomiting, fever/ chills. History of ventral hernia repair with mesh "about 2 years ago" and kidney stent placement and removal in last couple of months. Denies urinary complaints. Took multiple doses of pepto bismol since symptoms onset. CTAP in January didnt show diverticilits/osis. Allergies: Coded Allergies: DIAZEPAM (Verified Allergy, Mild, Itching, 10/28/15) DOBUTAMINE (Verified Allergy, Unknown, 10/28/15) SOLIFENACIN (Verified Allergy, Unknown, 04/19/17) Patient History Past Medical History: none Past Surgical History: manju Pertinent Family History: none Social History: Denies: alcohol use, drug use, smoking Now: No Immunizations: UTD Reviewed Nursing Documentation: PMH: Agreed, PSxH: Agreed Nursing Documentation-PMH Past Medical History: No History, Except For Hx Hypertension: Yes Hx Asthma: Yes Hx COPD: Yes Hx Diabetes: Yes - type 2 Hx Cancer: No Hx Gastrointestinal Problems: Yes - GERD Hx Neurological Problems: No Review of Systems All Other Systems: negative except mentioned in HPI Physical Exam Vital Signs Date Time Temp Pulse Resp B/P Pulse Ox O2 Delivery O2 Flow Rate FiO2 04/19/17 13:21 97.2 86 20 111/68 97 Room Air Sp02 EP Interpretation: reviewed, normal General Appearance: normal inspection, well appearing, no apparent distress, alert, GCS 15, non-toxic, obese Head: normocephalic, atraumatic Eyes: bilateral eye EOMI, bilateral eye PERRL ENT: normal ENT inspection, hearing grossly normal, normal voice Neck: normal inspection, full range of motion, supple, no bony tend Respiratory: normal inspection, lungs clear, normal breath sounds, no respiratory distress, no retraction, no wheezing Cardiovascular #1: regular rate, rhythm, no edema Gastrointestinal: normal inspection, normal bowel sounds, non tender, soft, no guarding, no hernia Genitourinary: no CVA tenderness Musculoskeletal: normal inspection, back normal, normal range of motion, Dorie' s Sign negative Neurologic: normal inspection, alert, oriented x3, responsive, industrial therapist III-XII nml as tested, motor strength/tone normal, speech normal Psychiatric: normal inspection, judgement/insight normal, mood/affect normal Skin: normal inspection, normal color, no rash Medical Decision Making Diagnostic Impression: Primary Impression: Abdominal pain Qualified Codes: R10.84 - Generalized abdominal pain Additional Impressions: Dark stools Seroma UTI (urinary tract infection) Qualified Codes: N30.00 - Acute cystitis without hematuria ER Course Abd pain - Afebrile. VSS. - Lipase, LFTs normal - Elevated serumCr c/w previous. Likely CKD - ECG is NSR. Troponin 0. Unlikely ACS as cause given no ischemia, neg trop and duration symptoms for 2 days - CTAP: 2.2cm periumbilical soft tissue anterior fluid collection. Left hydroureternephrosis without obstruction. No free fluid or free air. Bowel normal soft tissue fluid collection possibly post-op seroma. Advised GenSurg followup. No sign of abscess or infection warranting GenSUrg consult here or Abx UTI - Leuks in UA - Initial rocephin given in ED - DC with macrobid Dark stool - Not tachycardia or hypotensive - Likely from multiple doses of Pepto bismol DC home Last Vital Signs Date Time Temp Pulse Resp B/P Pulse Ox O2 Delivery O2 Flow Rate FiO2 04/19/17 13:31 98.0 79 22 118/51 96 Room Air Status: improved Disposition: HOME, SELF-CARE Referrals: NON PHYSICIAN (PCP) KLAUS ODONNELL M.D. Apr 19, 2017 14:54
[2017-04-19] MEDS ORDERED: Famotidine 20 MG/ 2ML VIAL IVP ONE (15:00)
[2017-04-19] MEDS ORDERED: cefTRIAXone 1 GM in NS 55 ML IVPB ONE (15:00)
[2017-04-19] MEDS ORDERED: NITROFURANTOIN100 M2 ORAL (15:59)
[2017-04-19] MEDS ORDERED: NORCO 5-325 TA1 EAC1 ORAL (16:13)
[2017-04-19 16:28] VITALS: BP 120/49
--- NOTE | 2017-04-20 08:59 | Diagnostic Imaging Report ---
Indication: Abdominal pain Technique: Continuous helical transaxial imaging of the abdomen and pelvis was obtained from the lung bases to the pubic symphysis. No intravenous contrast was administered. Coronal 2-D reformats were also obtained. Total Dose length Product (DLP): [address] Dose Index Volume (CTDIvol): 17 mGy Comparison: 01/27/[address] abdomen pelvis Findings: There is persistent hydronephrosis involving the upper portions of the left collecting system including the renal pelvis proximal ureter and calyces. The large stone previously demonstrated in the left UPJ has resolved. However there is a suggestion of a few tiny hyperdense foci within the ureter (for example, image 81-83, 91, 95 of series 3). Previously demonstrated stones are quite large in the left UPJ and one of the calyces in the left kidney have resolved indicating that lithotripsy was probably done. Please correlate with the procedural or surgical history. Several small nonobstructive stones are demonstrated within the right kidney with none of the stones measuring more than 2-3 mm. There is no hydronephrosis on the right. There is a fat-containing hernia involving the ventral abdominal wall. At the posterior end of the umbilicus there is a cystic focus measuring 2.4 cm. There is a left total hip prosthesis that obscures imaging of the left hemipelvis and bladder. The ureter is not seen distally in this location. Arterial vascular consultations are present. Cholecystectomy noted. Trace pericardial fluid versus thickening noted. Posterior basilar atelectasis demonstrated within the lungs. Impression: Moderate left hydronephrosis. Suspect tiny stones within the left ureter, possibly sequela of previous lithotripsy. Please correlate clinically. No large stones identified as was the case in the prior occasion. Multiple small nonobstructive stone in the right kidney noted. Scarring in the upper pole the right kidney noted. Status post cholecystectomy. Small subcutaneous cystic focus 2.5 cm at the level the umbilicus. This may be associated with prior surgery. This may be a small postsurgical fluid collection such as a seroma. Fat-containing ventral abdominal hernia. Posterior basilar atelectasis Trace pericardial fluid versus thickening. Left total hip prosthesis with streak artifact obscuring portion of the pelvis. Diverticulosis of the colon. No definite diverticulitis. The CT scanner at [facility] is accredited by the [employer] and the scans are performed using dose optimization techniques as appropriate to a performed exam including Automatic Exposure control.
== END 2017-04-19 16:30 | disposition home or self-care (01) ==
LOC: EMR 13:55
DX: R10.84 Generalized abdominal pain (principal); L76.34 Postprocedural seroma of skin and subcutaneous tissue following other procedure; N30.00 Acute cystitis without hematuria; Z88.8 Allergy status to other drugs, medicaments and biological substances; I10 Essential (primary) hypertension; J44.9 Chronic obstructive pulmonary disease, unspecified; J45.909 Unspecified asthma, uncomplicated; E11.9 Type 2 diabetes mellitus without complications; K21.9 Gastro-esophageal reflux disease without esophagitis
CPT/HCPCS: 36415; 74176; 80053; 81003; 83690; 84484; 85025; 93005; 96360; 96374; 96375; 99284; J0696; J1200; J2270; J2405; S0028

== ENCOUNTER 2017-05-29 11:47 | Inpatient (IN) | payer MEDICARE, MEDICAID ==
[~2017-05-29] VITALS: Ht 165.1 cm; Wt 92.5 kg
[~2017-05-29 11:47] MED LIST changes: +NITROFURANTOIN100 M2 ORAL; +NORCO 5-325 TA1 EAC1 ORAL
[2017-05-29 12:08] VITALS: BP 137/74
--- NOTE | 2017-05-29 13:30 | Diagnostic Imaging Report ---
Indications: Attain Technique: Spiral acquisitions obtained through the brain. Angled axial and coronal 5 x 5 mm slices were reconstructed. Total dose length product 1365 mGycm. CTDI vol(s) 70 mGy. Dose reduction achieved using automated exposure control Comparison: None Findings: No acute hemorrhage or edema. No mass effect or midline shift. There is mild age-related enlargement of ventricles and extra-axial CSF spaces. Intact calvarium. Visualized orbits and sinuses are unremarkable. Impression: Mild age-related changes. Negative for acute intracranial bleed or mass effect The CT scanner at [facility] is accredited by the [employer] and the scans are performed using protocols designed to limit radiation exposure to as low as reasonably achievable to attain images of sufficient resolution adequate for diagnostic evaluation.
[2017-05-29 14:45] VITALS: BP 133/71
--- NOTE | 2017-05-29 14:46 | Emergency Room Report ---
History of Present Illness General Chief Complaint: General Complaint Source: Patient Present Illness HPI Patient is a 66-year-old female presented after increased right lower extremity pain and swelling. Patient was sent in for evaluation after recent fall. Patient reported having increased pain to her right leg. Patient stated that she had been having swelling for several days. Patient was noted to have recently fallen and hit her head. Patient stated that she had some right-sided headache as well as pain to her hands. Allergies: Coded Allergies: DIAZEPAM (Verified Allergy, Mild, Itching, 10/28/15) DOBUTAMINE (Verified Allergy, Unknown, 10/28/15) MORPHINE (Verified Allergy, Unknown, 04/19/17) SOLIFENACIN (Verified Allergy, Unknown, 04/19/17) Patient History Past Medical History: see triage record Reviewed Nursing Documentation: PMH: Agreed, PSxH: Agreed Nursing Documentation-PMH Hx Hypertension: Yes Hx Asthma: Yes Hx COPD: Yes Hx Diabetes: Yes - type 2 Hx Cancer: No Hx Gastrointestinal Problems: Yes - GERD Hx Neurological Problems: No Review of Systems All Other Systems: negative except mentioned in HPI Physical Exam Vital Signs Date Time Temp Pulse Resp B/P Pulse Ox O2 Delivery O2 Flow Rate FiO2 05/29/17 11:54 97.7 67 20 134/72 100 Room Air Sp02 EP Interpretation: reviewed, normal General Appearance: normal inspection, well appearing, no apparent distress, alert, GCS 15 Head: atraumatic ENT: normal ENT inspection, hearing grossly normal, normal voice Neck: normal inspection, full range of motion, supple, no bony tend Respiratory: normal inspection, lungs clear, normal breath sounds, no respiratory distress, no retraction, no wheezing Cardiovascular #1: regular rate, rhythm, no edema Gastrointestinal: normal inspection, normal bowel sounds, non tender, soft, no guarding, no hernia Genitourinary: no CVA tenderness Musculoskeletal: back normal, swelling - right leg Neurologic: normal inspection, alert, responsive, speech normal, motor weakness , oriented Psychiatric: normal inspection, judgement/insight normal, mood/affect normal Skin: normal inspection, normal color, no rash Medical Decision Making Diagnostic Impression: Primary Impression: Deep venous thrombosis ER Course Patient presented for extremities pain and swelling. Differential diagnoses included wasn't limited to fracture, deep venous thrombosis, sprain among others.Because of complexity of patient's case laboratory testing and imaging studies were ordered. The x-ray imaging 3 view of the right ankle showed no evident fracture or dislocation. A duplex ultrasound of the right lower extremity showed evident deep venous thrombosis. Patient started on anticoagulation. Dr. Briseno was contacted for inpatient management Labs Test 05/29/17 15:15 White Blood Count 6.7 K/UL (4.8-10.8) Red Blood Count 3.80 M/UL (4.20-5.40) Hemoglobin 11.2 G/DL (12.0-16.0) Hematocrit 32.2 % (37.0-47.0) Mean Corpuscular Volume 85 FL (80-99) Mean Corpuscular Hemoglobin 29.5 PG (27.0-31.0) Mean Corpuscular Hemoglobin Concent 34.9 G/DL (32.0-36.0) Red Cell Distribution Width 14.1 % (11.6-14.8) Platelet Count 246 K/UL (150-450) Mean Platelet Volume 8.4 FL (6.5-10.1) Neutrophils (%) (Auto) 49.1 % (45.0-75.0) Lymphocytes (%) (Auto) 41.3 % (20.0-45.0) Monocytes (%) (Auto) 6.2 % (1.0-10.0) Eosinophils (%) (Auto) 2.0 % (0.0-3.0) Basophils (%) (Auto) 1.4 % (0.0-2.0) Prothrombin Time 9.9 SEC (9.30-11.50) Prothromb Time International Ratio 0.9 (0.9-1.1) Activated Partial Thromboplast Time 29 SEC (23-33) Last Vital Signs Date Time Temp Pulse Resp B/P Pulse Ox O2 Delivery O2 Flow Rate FiO2 05/29/17 12:08 97.6 64 18 137/74 100 Room Air Status: unchanged Disposition: ADMITTED INPATIENT Condition: Serious Referrals: OCTAVIO KAHN (PCP) Andrea Stapleton May 29, 2017 14:46
[2017-05-29] MEDS ORDERED: Heparin 25,000u/D5W 500ml 500 ML IV SCH ×2 (15:00→23:00)
[2017-05-29] MEDS ORDERED: Heparin 5000 units/ml inj IV ONE ×2 (15:00→23:00)
[2017-05-29 15:57] LABS: BASOPHILS % (AUTO) 1.4 % (0.0-2.0); LYMPHOCYTES % (AUTO) 41.3 % (20.0-45.0); MEAN CORPUSCULAR HEMOGLOBIN 29.5 PG (27.0-31.0); MEAN CORPUSCULAR HGB CONC 34.9 G/DL (32.0-36.0); MEAN CORPUSCULAR VOLUME 85 FL (80-99); MEAN PLATELET VOLUME 8.4 FL (6.5-10.1); MONOCYTES % (AUTO) 6.2 % (1.0-10.0); NEUTROPHILS % (AUTO) 49.1 % (45.0-75.0); PLATELET COUNT 246 K/UL (150-450); RED CELL DISTRIBUTION WIDTH 14.1 % (11.6-14.8); WHITE BLOOD COUNT 6.7 K/UL (4.8-10.8)
[2017-05-29 16:05] LABS: INR 0.9 (0.9-1.1); PROTHROMBIN TIME 9.9 SEC (9.30-11.50)
[2017-05-29 16:16] LABS: ALANINE AMINOTRANSFERASE 11 U/L (3-33); ALBUMIN/GLOBULIN RATIO 0.9 (1.0-2.7); ANION GAP 14 (5-15); ASPARTATE AMINO TRANSFERASE 14 U/L (5-40); CALCIUM 9.9 mg/dL (8.6-10.2); CARBON DIOXIDE 25 mEQ/L (20-30); CHLORIDE 99 mEQ/L (98-107); GLOMERULAR FILTRATION RATE > 60 mL/min (>60); HEMOLYSIS 0; POTASSIUM 3.5 mEQ/L (3.4-4.9); SODIUM 138 mEQ/L (135-145); TOTAL PROTEIN 7.7 g/dL (6.6-8.7)
[2017-05-29] MEDS ORDERED: OMEPRAZOLE20 M2 ORAL (16:50)
[2017-05-29] MEDS ORDERED: GABAPENTIN300 MG ORAL (16:50)
[2017-05-29] MEDS ORDERED: METOPROLOL SUCC25 MG ORAL (16:56)
[2017-05-29] MEDS ORDERED: METFORMIN HCL1000 M1 ORAL (16:56)
[2017-05-29] MEDS ORDERED: VESICARE5 MG ORAL (16:56)
[2017-05-29] MEDS ORDERED: BACLOFEN10 MG ORAL (16:56)
[2017-05-29] MEDS ORDERED: PERFOROMIS20 MCG/2 M IH (16:56)
[2017-05-29] MEDS ORDERED: OTEZLA30 MG PO (16:56)
[2017-05-29] MEDS ORDERED: BUDESONIDE0.5 MG/2 M IH (16:56)
[2017-05-29] MEDS ORDERED: PRIMIDONE50 MG PO (16:56)
[2017-05-29] MEDS ORDERED: DOCUSATE SODIU100 MG ORAL (17:00)
[2017-05-29] MEDS ORDERED: ROCALTROL0.5 MCG PO (17:00)
[2017-05-29] MEDS ORDERED: TYLENOL EXTRA500 MG ORAL (17:00)
[2017-05-29] MEDS ORDERED: NAPROXEN500 M2 ORAL (17:00)
[2017-05-29 19:27] VITALS: BP 128/74
[2017-05-29 20:00] VITALS: BP 125/74
[2017-05-29] MEDS ORDERED: LIDOCAINE700 M1 TDERMAL (21:13)
[2017-05-29] MEDS ORDERED: HYDROCORTISONE30 G2 TP (21:13)
[2017-05-29] MEDS ORDERED: DIPHENHYDRAMINE25 M1 ORAL (21:24)
[2017-05-29] MEDS ORDERED: XANAX0.5 MG ORAL (21:24)
[2017-05-29] MEDS ORDERED: CLOTRIMAZOLE-BE15 GM TP (21:24)
[2017-05-29] MEDS ORDERED: Hydrocortisone 2.5% Cream - 30gm TOPIC PRN (21:45)
[2017-05-29] MEDS ORDERED: Lotrisone Cream 15gm TOPIC PRN (21:45)
[2017-05-29] MEDS: NovoLOG Insulin Flexpen SUBQ SCH (22:31)
[2017-05-29] MEDS: Norco 10mg/325mg tab ORAL PRN (23:50)
[2017-05-30] VITALS: BP 132/69
[2017-05-30] MEDS ORDERED: Lotrisone Cream 15gm TOPIC PRN (03:30)
[2017-05-30 04:00] VITALS: BP 131/62
[2017-05-30 05:56] LABS: BASOPHILS % (AUTO) 1.2 % (0.0-2.0); EOSINOPHILS % (AUTO) 2.8 % (0.0-3.0); LYMPHOCYTES % (AUTO) 48.7 % (20.0-45.0); MEAN CORPUSCULAR HGB CONC 32.3 G/DL (32.0-36.0); MEAN CORPUSCULAR VOLUME 87 FL (80-99); MONOCYTES % (AUTO) 8.7 % (1.0-10.0); NEUTROPHILS % (AUTO) 38.6 % (45.0-75.0); PLATELET COUNT 253 K/UL (150-450); RED BLOOD COUNT 3.89 M/UL (4.20-5.40); RED CELL DISTRIBUTION WIDTH 13.7 % (11.6-14.8); WHITE BLOOD COUNT 5.9 K/UL (4.8-10.8)
[2017-05-30 06:06] LABS: PROTHROMBIN TIME 10.3 SEC (9.30-11.50)
[2017-05-30 06:10] LABS: HEMOGLOBIN A1C 5.9 % (< 6.0)
[2017-05-30 06:18] LABS: ALANINE AMINOTRANSFERASE 10 U/L (3-33); ALBUMIN/GLOBULIN RATIO 0.8 (1.0-2.7); ANION GAP 12 (5-15); ASPARTATE AMINO TRANSFERASE 14 U/L (5-40); CALCIUM 9.5 mg/dL (8.6-10.2); CARBON DIOXIDE 25 mEQ/L (20-30); CHLORIDE 102 mEQ/L (98-107); CHOLESTEROL 125 mg/dL (< 200); CHOLESTEROL/HDL RATIO 2.9 (3.3-4.4); CREATININE 0.9 mg/dL (0.5-0.9); GLOMERULAR FILTRATION RATE > 60 mL/min (>60); HEMOLYSIS 4; LDL CHOLESTEROL (CALC.) 33 mg/dL (60-99); POTASSIUM 3.2 mEQ/L (3.4-4.9); SODIUM 139 mEQ/L (135-145)
[2017-05-30] MEDS: NovoLOG Insulin Flexpen SUBQ SCH ×4 (06:32→21:00)
[2017-05-30] MEDS: Norco 10mg/325mg tab ORAL PRN ×3 (06:40→20:00)
[2017-05-30] MEDS: Heparin 25,000u/D5W 500ml 500 ML IV SCH (07:02)
[2017-05-30 08:00] VITALS: BP 127/66
[2017-05-30] MEDS: Aspirin Baby 81mg ORAL SCH (08:47)
[2017-05-30] MEDS: Calcitriol 0.25mcg Cap ORAL SCH (08:48)
[2017-05-30] MEDS ORDERED: metFORMIN 500mg tab ORAL SCH (09:00)
[2017-05-30] MEDS: Lisinopril 2.5mg tab ORAL SCH (09:00)
[2017-05-30] MEDS ORDERED: Hydrocortisone 2.5% Cream - 30gm TOPIC PRN (09:00)
[2017-05-30] MEDS: Budesonide HHN 0.25mg/2ml ud INH SCH ×2 (10:00→21:40)
[2017-05-30 12:00] VITALS: BP 136/69
--- NOTE | 2017-05-30 14:15 | History and Physical Report ---
DATE OF ADMISSION: 05/29/2017 CHIEF COMPLAINT: The right lower extremity pain or swelling. HISTORY OF PRESENT ILLNESS: This is a 66-year-old lady with a history of hypertension, diabetes, and chronic obstructive pulmonary disease. The patient now presented to the ER for right lower extremity, pain and swelling and the patient had for the last two weeks and found to have noticed right lower extremity pain and swelling and presented to the ER. In the ER, the patient was found to have right lower extremity DVT and the heparin drip was started. I saw patient this morning, denies any nausea, vomiting, chest pain, shortness of breath and diarrhea or abdominal pain.The right leg pain is better but still having pain. PAST MEDICAL HISTORY: Hypertension, diabetes, chronic obstructive pulmonary disease, asthma, and gastroesophageal reflux disease. PAST SURGICAL HISTORY: None. MEDICATION: Reviewed. ALLERGIES: No known drug allergies. FAMILY HISTORY: Noncontributory. SOCIAL HISTORY: Denies smoking, alcohol, and drug use. PHYSICAL EXAMINATION: VITAL SIGNS: Blood pressure of 127/66, a heart rate of 72, respiratory rate 19, temperature 97.7, and oxygen saturation is 96% on room air. GENERAL: On examination, the patient is no acute distress. Alert, awake, and oriented x3. HEENT: Atraumatic and normocephalic. NECK: Supple. Trachea is the midline. LUNGS: Clear to auscultate bilaterally. No rales. No rhonchi. ABDOMEN: Soft and nontender. No bowel sounds present. EXTREMITIES: Swelling and edema tenderness on the right lower extremities. LABORATORY DATA: White count 5.9, hemoglobin 10.9, hematocrit 32.7, and the platelet count is 253,000. Chemistries is sodium 139, potassium 3.2, chloride 102, bicarb 25, BUN 18, and creatinine is 0.9. Hemoglobin A1c is 5.9. Triglycerides is 246 and LDL is 33. TSH is 4.5. CT head was negative. Then the lower extremity venous Doppler showed acute traumas in the peroneal and the anterior tibia of the right lower extremity. ASSESSMENT AND PLAN: 1. Right lower extremity deep venous thrombosis. 2. s/p fall 3. Hypertension. 4. Diabetes. 5. Chronic obstructive pulmonary disease. 6. Hypokalemia. Continue heparin drip for switch to Coumadin tonight and continue the home medication and for the elevated TSH and over to the free T4 and T3 uptake packs and discussed with RN and patient. Lila Clements M.D. DR: LINDA JOB#: [id number] CC: KENNA
[2017-05-30 14:50] LABS: MAGNESIUM 1.1 mg/dL (1.7-2.5)
[2017-05-30 16:24] VITALS: BP 137/67
[2017-05-30] MEDS ORDERED: Warfarin Sodium 5mg ORAL ONE (17:00)
[2017-05-30] MEDS: metFORMIN 500mg tab ORAL SCH (17:20)
[2017-05-30 20:51] VITALS: BP 138/71
[2017-05-30] MEDS: ALPRAZolam 0.5mg tab ORAL SCH (20:57)
[2017-05-31] MEDS: Norco 10mg/325mg tab ORAL PRN ×3 (00:21→20:57)
[2017-05-31] MEDS: Heparin 25,000u/D5W 500ml 500 ML IV SCH ×2 (00:25→17:41)
[2017-05-31 00:49] VITALS: BP 140/80
[2017-05-31 04:35] VITALS: BP 146/74
[2017-05-31 05:10] LABS: BASOPHILS % (AUTO) 1.5 % (0.0-2.0); EOSINOPHILS % (AUTO) 2.7 % (0.0-3.0); LYMPHOCYTES % (AUTO) 43.2 % (20.0-45.0); MEAN CORPUSCULAR HEMOGLOBIN 27.6 PG (27.0-31.0); MEAN CORPUSCULAR HGB CONC 31.6 G/DL (32.0-36.0); MEAN CORPUSCULAR VOLUME 88 FL (80-99); MEAN PLATELET VOLUME 8.9 FL (6.5-10.1); MONOCYTES % (AUTO) 7.3 % (1.0-10.0); NEUTROPHILS % (AUTO) 45.2 % (45.0-75.0); PLATELET COUNT 300 K/UL (150-450); RED BLOOD COUNT 4.29 M/UL (4.20-5.40); RED CELL DISTRIBUTION WIDTH 14.2 % (11.6-14.8); WHITE BLOOD COUNT 5.2 K/UL (4.8-10.8)
[2017-05-31 05:39] LABS: INR 0.9 (0.9-1.1); PROTHROMBIN TIME 9.8 SEC (9.30-11.50)
[2017-05-31] MEDS: NovoLOG Insulin Flexpen SUBQ SCH ×4 (05:44→21:03)
[2017-05-31 05:53] LABS: ANION GAP 13 (5-15); CALCIUM 9.7 mg/dL (8.6-10.2); CARBON DIOXIDE 24 mEQ/L (20-30); CHLORIDE 102 mEQ/L (98-107); CREATININE 0.8 mg/dL (0.5-0.9); GLOMERULAR FILTRATION RATE > 60 mL/min (>60); HEMOLYSIS 5; POTASSIUM 3.9 mEQ/L (3.4-4.9); SODIUM 139 mEQ/L (135-145)
[2017-05-31] MEDS: Calcitriol 0.25mcg Cap ORAL SCH (08:17)
[2017-05-31] MEDS: Aspirin Baby 81mg ORAL SCH (08:17)
[2017-05-31] MEDS: metFORMIN 500mg tab ORAL SCH ×2 (08:18→17:26)
[2017-05-31 08:36] VITALS: BP 130/72
[2017-05-31] MEDS: Lisinopril 2.5mg tab ORAL SCH (08:41)
[2017-05-31] MEDS: Budesonide HHN 0.25mg/2ml ud INH SCH (10:00)
[2017-05-31] MEDS ORDERED: D5 1/2NS 1000ml IV ONE (10:35)
--- NOTE | 2017-05-31 12:23 | General Progress Note ---
Assessment/Plan Assessment/Plan 1. Right lower extremity deep venous thrombosis. 2. hypokalemia and hypomagnesemia--resolved 3. Hypertension. 4. Diabetes. 5. Chronic obstructive pulmonary disease. 6.constipation Plan Miralaax continue heparin drip and coumadin per Rx monitor PTT,INR Subjective Allergies: Coded Allergies: DIAZEPAM (Verified Allergy, Mild, Itching, 10/28/15) DOBUTAMINE (Verified Allergy, Unknown, 10/28/15) MORPHINE (Verified Allergy, Unknown, 04/19/17) SOLIFENACIN (Verified Allergy, Unknown, 04/19/17) Subjective eating lunch. complained of constipation. R leg pain is getting better Objective Last 24 Hour Vital Signs Date Time Temp Pulse Resp B/P Pulse Ox O2 Delivery O2 Flow Rate FiO2 05/31/17 10:23 Room Air 21.0 05/31/17 10:22 21 05/31/17 10:20 88 18 97 Room Air 21 05/31/17 08:41 61 130/72 05/31/17 08:41 130/72 05/31/17 08:36 97.3 61 20 130/72 97 Room Air 05/31/17 08:15 62 18 Room Air 05/31/17 04:35 97.3 57 20 146/74 98 05/31/17 01:33 96.8 05/31/17 00:49 96.8 65 20 140/80 97 Room Air 05/30/17 21:42 Room Air 05/30/17 21:41 21 05/30/17 21:41 Room Air 05/30/17 20:51 96.4 62 17 138/71 95 Room Air 05/30/17 19:14 64 18 Room Air 05/30/17 16:24 97.3 64 20 137/67 96 Room Air Intake and Output 05/30/17 05/31/17 19:00 07:00 Intake Total 1066.071 ml 346.071 ml Balance 1066.071 ml 346.071 ml Intake Oral 720 ml IV Total 346.071 ml 346.071 ml # Voids 1 5 # Bowel Movements 2 Laboratory Tests 05/30/17 13:15: Activated Partial Thromboplast Time 65H, Magnesium Level 1.1L, Free Thyroxine 0.98, Triiodothyronine (T3) Uptake 31 05/31/17 04:15: Activated Partial Thromboplast Time 86H, Magnesium Level 2.0, White Blood Count 5.2, Red Blood Count 4.29, Hemoglobin 11.9L, Hematocrit 37.5, Mean Corpuscular Volume 88, Mean Corpuscular Hemoglobin 27.6, Mean Corpuscular Hemoglobin Concent 31.6L, Red Cell Distribution Width 14.2, Platelet Count 300, Mean Platelet Volume 8.9, Neutrophils (%) (Auto) 45.2, Lymphocytes (%) (Auto) 43.2, Monocytes (%) (Auto) 7.3, Eosinophils (%) (Auto) 2.7, Basophils (%) (Auto) 1.5, Prothrombin Time 9.8, Prothromb Time International Ratio 0.9, Sodium Level 139, Potassium Level 3.9, Chloride Level 102, Carbon Dioxide Level 24, Anion Gap 13, Blood Urea Nitrogen 15, Creatinine 0.8, Estimat Glomerular Filtration Rate > 60 , Glucose Level 115H, Calcium Level 9.7 Height (Feet): 5 Height (Inches): 5.00 Weight (Pounds): 204 Objective NAD, AAOx3 CTA b/l,nor ales, no rhonchi S1,S2,RRR,no M/R/G soft, non tender, BS+ mild edema and tender in RLE EVELYN GUY May 31, 2017 12:23
[2017-05-31 12:32] VITALS: BP 161/79
[2017-05-31] MEDS: Miralax 17gm pkt ORAL PRN (13:51)
[2017-05-31 16:29] VITALS: BP 115/61
[2017-05-31] MEDS ORDERED: Warfarin Sodium 5mg ORAL ONE (17:00)
[2017-05-31] MEDS: Advair 250/50 Inhaler - 14 dose INH SCH (19:59)
[2017-05-31 20:00] VITALS: BP 112/64
[2017-05-31] MEDS: ALPRAZolam 0.5mg tab ORAL SCH (21:00)
[2017-06-01] MEDS: Norco 10mg/325mg tab ORAL PRN ×3 (03:36→19:43)
[2017-06-01 04:10] VITALS: BP 116/68
[2017-06-01 05:23] LABS: PROTHROMBIN TIME 10.1 SEC (9.30-11.50)
[2017-06-01] MEDS: NovoLOG Insulin Flexpen SUBQ SCH ×4 (05:55→20:47)
[2017-06-01 08:00] VITALS: BP 120/60
--- NOTE | 2017-06-01 08:38 | Diagnostic Imaging Report ---
Indication: PAIN Technique: 3 views of the right ankle Comparison: none Findings: No acute fractures. No dislocations. Joint spaces are preserved Impression: Negative
[2017-06-01] MEDS: Calcitriol 0.25mcg Cap ORAL SCH (09:05)
[2017-06-01] MEDS: Aspirin Baby 81mg ORAL SCH (09:05)
[2017-06-01] MEDS: Lisinopril 2.5mg tab ORAL SCH (09:05)
[2017-06-01] MEDS: metFORMIN 500mg tab ORAL SCH ×2 (09:05→17:53)
[2017-06-01] MEDS: Miralax 17gm pkt ORAL PRN (09:06)
[2017-06-01] MEDS: Advair 250/50 Inhaler - 14 dose INH SCH ×2 (09:10→20:08)
[2017-06-01] MEDS: Heparin 25,000u/D5W 500ml 500 ML IV SCH (10:23)
[2017-06-01 12:00] VITALS: BP 141/69
[2017-06-01 16:14] VITALS: BP 123/76
[2017-06-01] MEDS ORDERED: Warfarin Sodium 7.5mg ORAL ONE (17:00)
--- NOTE | 2017-06-01 17:17 | General Progress Note ---
Assessment/Plan Assessment/Plan Rt. Leg DVT. INR Subtherapeutic. On heparin Drip. Subjective Allergies: Coded Allergies: DIAZEPAM (Verified Allergy, Mild, Itching, 10/28/15) DOBUTAMINE (Verified Allergy, Unknown, 10/28/15) MORPHINE (Verified Allergy, Unknown, 04/19/17) SOLIFENACIN (Verified Allergy, Unknown, 04/19/17) Subjective No c/o Objective Last 24 Hour Vital Signs Date Time Temp Pulse Resp B/P Pulse Ox O2 Delivery O2 Flow Rate FiO2 06/01/17 16:14 98.1 65 18 123/76 96 Room Air 06/01/17 12:00 97.0 56 18 141/69 97 Room Air 06/01/17 09:11 Room Air 21 06/01/17 09:11 73 18 Room Air 21 06/01/17 09:11 Room Air 21 06/01/17 09:05 120/60 06/01/17 09:00 73 120/60 06/01/17 08:00 96.7 63 20 120/60 98 Room Air 06/01/17 04:35 98.6 06/01/17 04:10 98.6 58 18 116/68 96 Room Air 05/31/17 20:00 98.0 64 18 112/64 96 Room Air 05/31/17 19:30 Room Air 21 05/31/17 19:30 Room Air 21 05/31/17 19:30 68 18 Room Air 21 Intake and Output 05/31/17 06/01/17 19:00 07:00 Intake Total 706.071 ml 746.071 ml Balance 706.071 ml 746.071 ml Intake Oral 360 ml 400 ml IV Total 346.071 ml 346.071 ml # Voids 2 5 Laboratory Tests 06/01/17 03:50: Prothrombin Time 10.1, Prothromb Time International Ratio 1.0, Activated Partial Thromboplast Time 79H Height (Feet): 5 Height (Inches): 5.00 Weight (Pounds): 204 Objective Cv RR Lungs CTA Abd SNT .BS + E no KOREYE OCTAIVO KAHN Jun 01, 2017 17:17
[2017-06-01] MEDS: ALPRAZolam 0.5mg tab ORAL SCH (20:52)
[2017-06-01 21:00] VITALS: BP 140/74
[2017-06-02] VITALS (7 sets, daily range): BP systolic 109–161; BP diastolic 46–78
[2017-06-02] MEDS: Norco 10mg/325mg tab ORAL PRN ×4 (00:34→20:25)
[2017-06-02] MEDS: Heparin 25,000u/D5W 500ml 500 ML IV SCH ×2 (03:33→20:30)
[2017-06-02] MEDS: NovoLOG Insulin Flexpen SUBQ SCH ×4 (06:10→21:00)
[2017-06-02 06:16] LABS: PROTHROMBIN TIME 10.3 SEC (9.30-11.50)
[2017-06-02] MEDS: Advair 250/50 Inhaler - 14 dose INH SCH ×2 (08:30→19:37)
[2017-06-02] MEDS: Aspirin Baby 81mg ORAL SCH (08:53)
[2017-06-02] MEDS: metFORMIN 500mg tab ORAL SCH ×2 (08:53→17:30)
[2017-06-02] MEDS: Calcitriol 0.25mcg Cap ORAL SCH (08:53)
[2017-06-02] MEDS: Lisinopril 2.5mg tab ORAL SCH (08:56)
--- NOTE | 2017-06-02 12:55 | General Progress Note ---
Assessment/Plan Assessment/Plan Rt. Leg DVT. INR Subtherapeutic. On heparin Drip. Overriding pharmacy Coumadinization to hasten process. Subjective Allergies: Coded Allergies: DIAZEPAM (Verified Allergy, Mild, Itching, 10/28/15) DOBUTAMINE (Verified Allergy, Unknown, 10/28/15) MORPHINE (Verified Allergy, Unknown, 04/19/17) SOLIFENACIN (Verified Allergy, Unknown, 04/19/17) Subjective No c/o Objective Last 24 Hour Vital Signs Date Time Temp Pulse Resp B/P Pulse Ox O2 Delivery O2 Flow Rate FiO2 06/02/17 08:56 109/57 06/02/17 08:55 74 109/57 06/02/17 08:50 97.7 70 20 109/59 96 Room Air 06/02/17 08:30 Room Air 06/02/17 08:30 75 18 Room Air 06/02/17 08:30 Room Air 21 06/02/17 04:35 98.2 72 20 118/62 94 Room Air 06/02/17 01:41 98.2 06/02/17 00:57 98.2 72 20 110/46 94 Room Air 06/01/17 21:00 98.1 68 20 140/74 94 Room Air 06/01/17 20:07 Room Air 06/01/17 20:07 78 18 Room Air 06/01/17 20:06 Room Air 06/01/17 16:14 98.1 65 18 123/76 96 Room Air Intake and Output 06/01/17 06/02/17 19:00 07:00 Intake Total 1186.071 ml 826.071 ml Balance 1186.071 ml 826.071 ml Intake Oral 840 ml 480 ml IV Total 346.071 ml 346.071 ml # Voids 3 2 # Bowel Movements 1 Laboratory Tests 06/02/17 04:15: Prothrombin Time 10.3, Prothromb Time International Ratio 1.0, Activated Partial Thromboplast Time 65H Height (Feet): 5 Height (Inches): 5.00 Weight (Pounds): 204 Objective Cv RR Lungs CTA Abd SNT .BS + E no CCE OCTAVIO KAHN Jun 02, 2017 12:55
[2017-06-02] MEDS ORDERED: Warfarin Sodium 10mg ORAL ONE (17:00)
[2017-06-02] MEDS ORDERED: Warfarin Sodium 7.5mg ORAL ONE (17:00)
[2017-06-02] MEDS: ALPRAZolam 0.5mg tab ORAL SCH (20:24)
[2017-06-03] MEDS: Norco 10mg/325mg tab ORAL PRN ×4 (01:53→21:38)
[2017-06-03] MEDS: Miralax 17gm pkt ORAL PRN (03:24)
[2017-06-03 03:57] VITALS: BP 141/76
[2017-06-03] MEDS: NovoLOG Insulin Flexpen SUBQ SCH ×4 (05:56→21:42)
[2017-06-03 08:07] VITALS: BP 129/76
[2017-06-03] MEDS: Aspirin Baby 81mg ORAL SCH (08:35)
[2017-06-03] MEDS: metFORMIN 500mg tab ORAL SCH ×2 (08:36→17:13)
[2017-06-03] MEDS: Calcitriol 0.25mcg Cap ORAL SCH (08:36)
[2017-06-03] MEDS: Lisinopril 2.5mg tab ORAL SCH (08:37)
[2017-06-03] MEDS: Advair 250/50 Inhaler - 14 dose INH SCH ×2 (09:00→19:50)
[2017-06-03 11:25] LABS: INR 1.3 (0.9-1.1); PROTHROMBIN TIME 13.5 SEC (9.30-11.50)
[2017-06-03 12:00] VITALS: BP 133/83
--- NOTE | 2017-06-03 12:26 | General Progress Note ---
Assessment/Plan Assessment/Plan Rt. Leg DVT. INR Subtherapeutic. Today INR 1.3 going up but still low. On heparin Drip. Overriding pharmacy Coumadinization to hasten process. Subjective Allergies: Coded Allergies: DIAZEPAM (Verified Allergy, Mild, Itching, 10/28/15) DOBUTAMINE (Verified Allergy, Unknown, 10/28/15) MORPHINE (Verified Allergy, Unknown, 04/19/17) SOLIFENACIN (Verified Allergy, Unknown, 04/19/17) Subjective No c/o Objective Last 24 Hour Vital Signs Date Time Temp Pulse Resp B/P Pulse Ox O2 Delivery O2 Flow Rate FiO2 06/03/17 12:00 98.1 72 20 133/83 97 Room Air 06/03/17 08:37 129/76 06/03/17 08:36 76 129/76 06/03/17 08:07 97.3 76 20 129/76 98 Room Air 06/03/17 07:42 Room Air 06/03/17 07:40 Room Air 06/03/17 03:57 97.7 75 18 141/76 95 Room Air 06/03/17 03:03 97.3 06/02/17 23:48 97.3 76 19 148/78 94 Room Air 06/02/17 20:00 97.7 80 18 161/78 95 Room Air 06/02/17 19:38 Room Air 21 06/02/17 19:38 72 18 Room Air 21 06/02/17 19:37 Room Air 06/02/17 16:27 97.0 72 20 145/70 95 Room Air 06/02/17 12:49 98.1 59 20 132/63 95 Room Air Intake and Output 06/02/17 06/03/17 19:00 07:00 Intake Total 946.071 ml 676.071 ml Balance 946.071 ml 676.071 ml Intake Oral 600 ml 360 ml IV Total 346.071 ml 316.071 ml # Voids 2 4 Laboratory Tests 06/03/17 04:15: Activated Partial Thromboplast Time 84H 06/03/17 11:05: Prothrombin Time 13.5H, Prothromb Time International Ratio 1.3H Height (Feet): 5 Height (Inches): 5.00 Weight (Pounds): 204 Objective Cv RR Lungs CTA Abd SNT .BS + E no CCE OCTAVIO KAHN Jun 03, 2017 12:26
[2017-06-03] MEDS: Heparin 25,000u/D5W 500ml 500 ML IV SCH (13:03)
[2017-06-03 15:56] VITALS: BP 139/60
[2017-06-03] MEDS ORDERED: Warfarin Sodium 10mg ORAL ONE (17:00)
[2017-06-03 20:56] VITALS: BP 142/73
[2017-06-03] MEDS: ALPRAZolam 0.5mg tab ORAL SCH (21:35)
[2017-06-04 00:36] VITALS: BP 127/68
[2017-06-04 04:45] VITALS: BP 124/66
[2017-06-04 05:26] LABS: INR 1.7 (0.9-1.1); PROTHROMBIN TIME 17.8 SEC (9.30-11.50)
[2017-06-04] MEDS: Heparin 25,000u/D5W 500ml 500 ML IV SCH ×2 (06:07→14:18)
[2017-06-04] MEDS: NovoLOG Insulin Flexpen SUBQ SCH ×4 (06:12→21:00)
[2017-06-04] MEDS: Norco 10mg/325mg tab ORAL PRN ×4 (06:34→20:58)
[2017-06-04 08:06] VITALS: BP 101/73
[2017-06-04] MEDS: Advair 250/50 Inhaler - 14 dose INH SCH ×2 (10:00→20:14)
[2017-06-04] MEDS: metFORMIN 500mg tab ORAL SCH ×2 (10:01→17:08)
[2017-06-04] MEDS: Calcitriol 0.25mcg Cap ORAL SCH (10:01)
[2017-06-04] MEDS: Aspirin Baby 81mg ORAL SCH (10:01)
[2017-06-04] MEDS: Lisinopril 2.5mg tab ORAL SCH (10:02)
[2017-06-04] MEDS: Miralax 17gm pkt ORAL PRN (11:33)
[2017-06-04 11:55] VITALS: BP 123/68
[2017-06-04] MEDS ORDERED: Heparin 5000 units/ml inj IV ONE ×2 (13:15→14:15)
--- NOTE | 2017-06-04 13:23 | General Progress Note ---
Assessment/Plan Assessment/Plan Rt. Leg DVT. INR Subtherapeutic. Today INR 1.7 going up but still low. On heparin Drip. Overriding pharmacy Coumadinization to hasten process. Subjective Allergies: Coded Allergies: DIAZEPAM (Verified Allergy, Mild, Itching, 10/28/15) DOBUTAMINE (Verified Allergy, Unknown, 10/28/15) MORPHINE (Verified Allergy, Unknown, 04/19/17) SOLIFENACIN (Verified Allergy, Unknown, 04/19/17) Subjective No c/o Objective Last 24 Hour Vital Signs Date Time Temp Pulse Resp B/P Pulse Ox O2 Delivery O2 Flow Rate FiO2 06/04/17 11:55 97.9 62 19 123/68 96 Room Air 06/04/17 10:03 67 121/63 06/04/17 10:02 121/63 06/04/17 08:06 97.0 136 25 101/73 97 Room Air 06/04/17 04:45 97.2 61 20 124/66 97 Room Air 06/04/17 00:36 97.5 68 18 127/68 94 Room Air 06/03/17 20:56 97.7 72 19 142/73 96 Room Air 06/03/17 19:50 Room Air 06/03/17 19:49 Room Air 06/03/17 15:56 97.7 70 20 139/60 98 Room Air Intake and Output 06/03/17 06/04/17 19:00 07:00 Intake Total 1514.610 ml 346.071 ml Balance 1514.610 ml 346.071 ml Intake Oral 1200 ml IV Total 314.610 ml 346.071 ml # Voids 4 4 # Bowel Movements 1 3 Laboratory Tests 06/04/17 04:30: Prothrombin Time 17.8H, Prothromb Time International Ratio 1.7H, Activated Partial Thromboplast Time 107H 06/04/17 11:52: Activated Partial Thromboplast Time 59H Height (Feet): 5 Height (Inches): 5.00 Weight (Pounds): 204 Objective Cv RR Lungs CTA Abd SNT .BS + E no CCE OCTAVIO KAHN Jun 04, 2017 13:23
[2017-06-04 16:00] VITALS: BP 120/55
[2017-06-04] MEDS ORDERED: Warfarin Sodium 10mg ORAL ONE ×2 (17:00)
[2017-06-04 20:06] VITALS: BP 158/75
[2017-06-04] MEDS: ALPRAZolam 0.5mg tab ORAL SCH (20:58)
[2017-06-04] MEDS ORDERED: Heparin 25,000u/D5W 500ml 500 ML IV SCH (22:05)
[2017-06-05 00:15] VITALS: BP 155/62
[2017-06-05 04:22] VITALS: BP 135/72
[2017-06-05 05:18] LABS: INR 2.3 (0.9-1.1); PROTHROMBIN TIME 23.9 SEC (9.30-11.50)
[2017-06-05] MEDS: NovoLOG Insulin Flexpen SUBQ SCH ×2 (06:07→11:39)
[2017-06-05] MEDS: metFORMIN 500mg tab ORAL SCH (08:21)
[2017-06-05] MEDS: Aspirin Baby 81mg ORAL SCH (08:21)
[2017-06-05] MEDS: Lisinopril 2.5mg tab ORAL SCH (08:23)
[2017-06-05] MEDS: Calcitriol 0.25mcg Cap ORAL SCH (08:23)
[2017-06-05 08:25] VITALS: BP 144/76
[2017-06-05] MEDS: Norco 10mg/325mg tab ORAL PRN (08:34)
[2017-06-05] MEDS: Advair 250/50 Inhaler - 14 dose INH SCH (09:03)
--- NOTE | 2017-06-05 10:10 | General Progress Note ---
Assessment/Plan Assessment/Plan Rt. Leg DVT. INR 2.3 DC home Subjective Allergies: Coded Allergies: DIAZEPAM (Verified Allergy, Mild, Itching, 10/28/15) DOBUTAMINE (Verified Allergy, Unknown, 10/28/15) MORPHINE (Verified Allergy, Unknown, 04/19/17) SOLIFENACIN (Verified Allergy, Unknown, 04/19/17) Subjective No c/o Objective Last 24 Hour Vital Signs Date Time Temp Pulse Resp B/P Pulse Ox O2 Delivery O2 Flow Rate FiO2 06/05/17 09:04 Room Air 06/05/17 09:03 Room Air 06/05/17 08:25 97.2 72 20 144/76 98 Room Air 06/05/17 08:24 72 144/72 06/05/17 08:23 144/72 06/05/17 04:22 96.8 60 17 135/72 96 Room Air 06/05/17 00:15 97.7 61 18 155/62 97 Room Air 06/04/17 22:07 97.7 06/04/17 20:14 Room Air 06/04/17 20:14 Room Air 06/04/17 20:06 97.7 68 20 158/75 98 Room Air 06/04/17 16:00 97.2 66 20 120/55 97 Room Air 06/04/17 11:55 97.9 62 19 123/68 96 Room Air Intake and Output 06/04/17 06/05/17 19:00 07:00 Intake Total 389.611 ml 590.673 ml Balance 389.611 ml 590.673 ml Intake Oral 360 ml 300 ml IV Total 29.611 ml 290.673 ml # Voids 7 Laboratory Tests 06/04/17 11:52: Activated Partial Thromboplast Time 59H 06/04/17 20:25: Activated Partial Thromboplast Time 112H 06/05/17 04:40: Activated Partial Thromboplast Time 55H, Prothrombin Time 23.9H, Prothromb Time International Ratio 2.3H Height (Feet): 5 Height (Inches): 5.00 Weight (Pounds): 204 Objective Cv RR Lungs CTA Abd SNT .BS + E no CCE OCTAVIO KAHN Jun 05, 2017 10:10
[2017-06-05] MEDS ORDERED: COUMADIN5 MG ORAL (10:28)
[2017-06-05 12:00] VITALS: BP 121/73
--- NOTE | 2017-06-08 10:48 | Discharge Summary ---
Discharge Summary Hospital Course Date of Admission May 29, 2017 at 14:27 Date of Discharge Jun 05, 2017 at 14:19 Admitting Diagnosis deep vein thrombosis HPI Ann-Marie Mon is a 66 year old female who was admitted on May 29, 2017 at 14: 27 for Deep Vein Thrombosis Hospital Course dc summary #[id number] Discharge Medications Continued Medications: Alprazolam* (Xanax*) 0.5 Mg Tablet 0.5 MG ORAL BEDTIME, TAB Apremilast (Otezla) 30 Mg Tablet 30 MG PO BID, TAB Aspirin* (Aspir 81*) 81 Mg Tablet.dr 325 MG ORAL DAILY for 30 Days, TAB Atorvastatin Calcium* (Lipitor*) 40 Mg Tablet 40 MG ORAL QHS, TAB Baclofen* (Baclofen*) 10 Mg Tablet 10 MG ORAL PRN for Muscle Spasm, TAB Budesonide (Budesonide) 0.5 Mg/2 Ml Ampul.neb 0.5 MG IH BID, EA Calcitriol (Calcitriol) 0.25 Mcg Capsule 0.25 MCG PO DAILY, CAP Clotrimazole/Betamethasone Dip (Clotrimazole-Betamethasone Crm) 15 Gm Cream..g. 15 GM TP DAILY PRN for PRN, GM Diphenhydramine Hcl* (Diphenhydramine Hcl*) 25 Mg Capsule 25 MG ORAL HS, CAP 0 Refills Formoterol Fumarate (Perforomist) 20 Mcg/2 Ml Vial.neb 20 MCG IH BID, VIAL Gabapentin* (Gabapentin*) 300 Mg Capsule 300 MG ORAL THREE TIMES A DAY, CAP 0 Refills Hydrochlorothiazide* (Hydrochlorothiazide*) 25 Mg Tablet 25 MG ORAL DAILY, TAB Hydrocodone/Acetaminophen (Hydrocodon-Acetaminophn 10-325) 1 Ea Tab 1 TAB ORAL Q4H PRN for For Pain, TAB 0 Refills Hydrocortisone (Hydrocortisone Cream 2.5%) Y Cream.appl 1 APPLIC TP PRN for prn, GM Lidocaine (Lidocaine) 1 Each Adh..patch Unknown Dose TDERMAL BID, PATCH Lisinopril (Lisinopril*) 5 Mg Tablet 5 MG ORAL DAILY, TAB Metformin Hcl* (Metformin Hcl*) 1,000 Mg Tablet 1000 MG ORAL BID, TAB Metoprolol Succinate* (Metoprolol Succinate*) 25 Mg Tab.er.24h 25 MG ORAL DAILY, TAB Naproxen* (Naproxen*) 500 Mg Tablet 500 MG ORAL TWICE A DAY PRN for For Pain, TAB Omeprazole (Omeprazole) 20 Mg Capsule.dr 20 MG ORAL DAILY, CAP Primidone* (Mysoline*) 50 Mg Tablet 50 MG PO QHS, TAB Solifenacin Succinate* (Vesicare*) 5 Mg Tablet 5 MG ORAL DAILY, TAB Warfarin Sod* (Coumadin*) 5 Mg Tablet 5 MG ORAL DAILY, TAB Discharge Condition Upon Discharge: stable Discharge Disposition Patient was discharged to Home (01) Discharge Diagnoses: Discharge Instructions Discharge Instructions Special Instructions I have been assigned to complete a D/C Summary on this account. I was not involved in the patient management Keri Ramos NP (Vanchtein) Jun 08, 2017 10:48
--- NOTE | 2017-06-08 23:46 | Discharge Summary 2 SIG ---
DATE OF ADMISSION: 05/29/2017 DATE OF DISCHARGE: 06/05/2017 BRIEF HOSPITAL COURSE: This is a 66-year-old female with history of hypertension, diabetes, and COPD, presented to emergency room with right lower extremity pain and edema for few days. The patient admitted to recent fall and pain started few days after that. The patient also admitted to hitting her head. In the emergency department, CT of the head revealed no acute intracranial pathology, but demonstrated mild age-related changes. X-ray of the right ankle revealed no evidence of acute fracture or dislocation. Venous duplex, right lower extremity revealed acute DVT, peroneal and anterior tibial vein. The patient started on anticoagulation with heparin and Coumadin to bridge to therapeutic INR. Therapeutic INR only was achieved on 06/05/2017, INR 2.3, heparin discontinued and the patient was discharged on the Coumadin and follow up with medical doctor as outlined for INR checking. Supplemental oxygen and pulmonary toilet provided as needed. Pulse oximetry was stable on room air. Blood sugar was managed with metformin and was stable. Blood pressure was managed with beta-rosalba and was stable. Bowel regimen instituted. Pain management provided. Electrolyte imbalances were corrected such as hypokalemia and hypomagnesemia, stable prior to discharge. Noted elevated TSH, however, free uptake of T3 within normal limits. Recommended to check thyroid function tests in two to three months. The patient was stable for discharge. DISCHARGE DIAGNOSES: Include: 1. Acute deep vein thrombosis, right lower extremity, peroneal and anterior tibial vein. 2. Status post mechanical fall. 3. Electrolyte imbalances (hypokalemia and hypomagnesemia), resolved. 4. Hypertension. 5. Diabetes. 6. Chronic obstructive pulmonary disease. DISCHARGE MEDICATIONS: See medication reconciliation list. DISCHARGE INSTRUCTIONS: The patient discharged home. Follow up with the medical doctor for INR management. Nieves Nielsen M.D. I have been assigned to dictate discharge summary on this account and I was not involved in the patient's management. Keri Pittsroc[facility] demonstration hospitalRussell Sargent DR: Gricel JOB#: [id number] CC:
== END 2017-06-05 14:19 | disposition home or self-care (01) | DRG 301 ==
LOC: EMR 12:51 → 4W 14:27 → EDBEDREQ 15:50
DX: I82.441 Acute embolism and thrombosis of right tibial vein (principal); I82.4Z1 Acute embolism and thrombosis of unspecified deep veins of right distal lower extremity; J44.9 Chronic obstructive pulmonary disease, unspecified; E83.42 Hypomagnesemia; I10 Essential (primary) hypertension; K21.9 Gastro-esophageal reflux disease without esophagitis; E87.6 Hypokalemia; K59.00 Constipation, unspecified; E11.9 Type 2 diabetes mellitus without complications; Z88.6 Allergy status to analgesic agent; Z88.8 Allergy status to other drugs, medicaments and biological substances; Z91.81 History of falling
CPT/HCPCS: 36415; 70450; 80048; 80053; 80061; 82962; 83036; 83735; 84439; 84443; 84480; 85025; 85610; 85730; 93970; 94664; J1815; J8499

== ENCOUNTER 2018-01-25 09:39 | Outpatient (CLI) | payer MEDICARE, MEDICAID ==
[~2018-01-25 09:39] MED LIST changes: +BACLOFEN10 MG ORAL; +BUDESONIDE0.5 MG/2 M IH; +CLOTRIMAZOLE-BE15 GM TP; +COUMADIN5 MG ORAL; +DIPHENHYDRAMINE25 M1 ORAL; +DOCUSATE SODIU100 MG ORAL; +GABAPENTIN300 MG ORAL; +HYDROCORTISONE30 G2 TP; +LIDOCAINE700 M1 TDERMAL; +METFORMIN HCL1000 M1 ORAL; +METOPROLOL SUCC25 MG ORAL; +OMEPRAZOLE20 M2 ORAL; +OTEZLA30 MG PO; +PERFOROMIS20 MCG/2 M IH; +PRIMIDONE50 MG PO; +ROCALTROL0.5 MCG PO; +TYLENOL EXTRA500 MG ORAL; +VESICARE5 MG ORAL; +XANAX0.5 MG ORAL
--- NOTE | 2018-01-25 12:47 | Diagnostic Imaging Report ---
Indication: Cough Technique: 2 views of the chest Comparison: 01/29/2017 Findings: Lungs and pleural spaces are clear. Previously demonstrated left basilar atelectatic changes are no longer evident. The heart is borderline enlarged Impression: No acute process Borderline cardiomegaly
== END 2018-01-25 11:39 | disposition home or self-care (01) ==
LOC: RAD 09:39
DX: R05 Cough (principal)
CPT/HCPCS: 71046

== ENCOUNTER → 2018-04-05 | Outpatient (CLI) | payer MEDICARE, MEDICAID ==
--- NOTE | 2018-04-05 12:06 | Diagnostic Imaging Report ---
Indication: History of renal stones and flank pain Technique: Continuous helical transaxial imaging of the abdomen and pelvis was obtained from the lung bases to the pubic symphysis. No intravenous contrast was administered. Coronal 2-D reformats were also obtained. Automatic Exposure Control was utilized. Total Dose length Product (DLP): [address] Dose Index Volume (CTDIvol): 0.15, 18.6 mGy Comparison: 04/19/2017 Findings: Previously demonstrated obstruction involving the left kidney has a resolved. Hydronephrosis no longer visualized. Once again there are multiple stones at the level of the kidneys bilaterally. There is one new stone in the midpole calyx of the left kidney measuring about 5 mm. This was not seen on the prior occasion. Several tiny nonobstructive stones again noted within the right kidney. No hydronephrosis seen on either side. The left ureter is not visualized well distally due to streak artifact from a left hip prosthesis. The right ureter is mostly seen. The distal segment of the left ureter is not seen. Bladder is grossly unremarkable in appearance. Uterus noted. Scar in the area of the umbilicus noted indicative of previous surgery. Cholecystectomy noted. Within the lateral segment of the left lobe of the liver there is an unusual large lobulated area of hypodensity slightly heterogeneous in appearance measuring approximately 5 x 7.7 x 6.8 cm not previously seen. Hounsfield units sampling suggests some areas of fat density. Geographic fatty infiltration as one possibility. Sonographic correlation recommended. Further evaluation of this also recommended with dynamic contrast-enhanced CT. The right femoral head is sclerotic. AVN suspected. IMPRESSION: Interval development of a large heterogeneous hypodensity in the left lobe of the liver measuring 5 x 7.7 x 6.8 cm. Differential considerations include a liver infarct, geographic fatty infiltration and malignancy. Contrast-enhanced dynamic CT of the liver is recommended. Sonographic correlation is also suggested. Interval resolution of left hydronephrosis and obstruction. No hydronephrosis currently demonstrated. Multiple bilateral nonobstructive stones. Status post cholecystectomy. Obscure the left distal ureter due to streak artifact from a hip prosthesis. Sclerosis of the right femoral head. AVN suspected. The CT scanner at [facility] is accredited by the [employer] and the scans are performed using dose optimization techniques as appropriate to a performed exam including Automatic Exposure control.
== END | disposition home or self-care (01) ==
LOC: CAT 09:36
DX: R10.9 Unspecified abdominal pain (principal); N13.2 Hydronephrosis with renal and ureteral calculous obstruction; Z96.642 Presence of left artificial hip joint; Z90.49 Acquired absence of other specified parts of digestive tract
CPT/HCPCS: 74176

== ENCOUNTER 2018-04-22 09:30 | Outpatient (CLI) | payer MEDICARE, MEDICAID ==
--- NOTE | 2018-04-22 10:38 | Diagnostic Imaging Report ---
Indication: Hematuria, kidney stone Technique: Spiral acquisitions obtained through the abdomen and pelvis. No oral contrast utilized, per emergency room physician request No IV contrast utilized, per referring physician request.. Multiplanar reconstructions were generated. Total dose length product 921.96 mGycm. CTDIvol(s) 18.4 mGy. Dose reduction achieved using automated exposure control Comparison: 04/05/2018 Findings: 3 calculi are seen in the right kidney, appearing unchanged in size and position. Largest of these measures approximately 3 mm diameter. A single 4 mm calculus is seen in the left kidney, also evident previously. Subtle slight increased density in the left lower pole collecting system could represent a lower pole calyceal calculus, not evident previously if real. No ureteral calculi, although the left ureter is not well-visualized due to streak artifact from a hip prosthesis.. No hydronephrosis nor hydroureter. Lack of IV contrast limits assessment of the renal parenchyma. No gross renal parenchymal mass or cyst demonstrated. The bladder is grossly unremarkable and no bladder calculi are evident Lack of IV contrast limits assessment of the other solid organs. Within the left lobe of the liver, there is a somewhat unusual appearing area of low attenuation which measures 7.7 cm AP by 5 cm transverse by 4 cm craniocaudad. This appears unchanged from the previous exam. No new liver lesions are demonstrated. There are cholecystectomy clips. No biliary ductal dilatation. The pancreas, spleen, adrenals are unremarkable. No retroperitoneal or mesenteric mass or adenopathy. No pelvic mass or adenopathy. There is a left hip prosthesis. This throws off streak artifact which could obscure pathology in the pelvis. The uterus appears grossly unremarkable. No evidence of colonic diverticulosis. No evidence of diverticulitis. The appendix is not definitely evident, but no findings to suggest acute appendicitis are demonstrated. No small bowel distention. No free or loculated intraperitoneal air or fluid. There is a midline incisional scar. The distal esophagus, stomach, duodenum are all unremarkable. The included lung bases are clear. Pericardial thickening is again demonstrated and unchanged. Again demonstrated are sclerotic and cystic changes of the right femoral head, appearing unchanged. Impression: Nonobstructive bilateral intrarenal calculi are again demonstrated, unchanged from prior study of 04/05/2018 Negative for evidence of hydronephrosis or ureteral calculus Low-attenuation area in the left hepatic lobe, as described, unchanged from previous study. As previously reported, the could represent an area of geographic fatty infiltration. However, mass or abscess are also possibilities. Further workup with liver protocol contrast MRI is recommended if this has not been previously worked up Sclerotic and cystic changes of the right femoral head. Most likely on the basis of degenerative change, but could represent early changes of avascular necrosis. Also previously reported Other findings as noted, including stable pericardial thickening, evidence of prior midline incision, evidence of prior cholecystectomy The CT scanner at [facility] is accredited by the [employer] and the scans are performed using protocols designed to limit radiation exposure to as low as reasonably achievable to attain images of sufficient resolution adequate for diagnostic evaluation.
== END 2018-04-22 11:30 | disposition home or self-care (01) ==
LOC: CAT 09:30
DX: N20.0 Calculus of kidney (principal); Z90.49 Acquired absence of other specified parts of digestive tract
CPT/HCPCS: 74176

== ENCOUNTER 2018-06-10 09:21 | Outpatient (CLI) | payer MEDICARE, MEDICAID ==
--- NOTE | 2018-06-10 12:32 | Diagnostic Imaging Report ---
Indication: Abdominal pain, evaluation of abnormality in the liver seen on prior abdomen pelvis CT Technique: Lau-scale and duplex images of the upper abdomen were obtained Comparison: Reference made to abdomen pelvis CT dated 04/22/2018 Findings: Gallbladder is surgically absent. Common bile duct measures 10 mm in diameter. No intrahepatic biliary ductal dilatation. Liver demonstrates diffusely increased echogenicity. In the left hepatic lobe, in the area of previously demonstrated, on CT, abnormality, there is questionably a 5 x 3.4 cm area of slightly decreased echogenicity. Portal vein and hepatic veins are patent. Pancreas is unremarkable. Spleen is unremarkable. Left kidney measures 11.7 cm in length. Right kidney measures 12.5 cm length. Both kidneys demonstrate normal echogenicity. There is no hydronephrosis. Calcifications in the left renal sinus are also demonstrated on prior CT scan. Small left renal cysts are demonstrated, not clearly evident on prior CT. No focal right renal abnormality . Abdominal aorta is partially obscured by bowel gas, visualized portions are non-aneurysmal . Impression: Liver demonstrates diffusely increased echogenicity, consistent with diffuse hepatocellular disease, most likely fatty change. Subtle area of slightly decreased echogenicity in the posterior left lower lobe, if real corresponding to abnormality demonstrated on recent CT scan. Sonographic findings do not add any specificity to the CT finding. Consider further evaluation with liver protocol contrast CT for better characterization Nonobstructive left renal calculi, also described on recent CT Surgically absent gallbladder. Mildly dilated extra hepatic bile ducts, likely related to age and postcholecystectomy state, downstream obstruction not completely excludable. Correlate with liver function tests Incidental finding left renal cysts Note nonvisualization of the distal abdominal aorta
== END 2018-06-10 11:21 | disposition home or self-care (01) ==
LOC: ULS 09:21
DX: R10.9 Unspecified abdominal pain (principal); N20.0 Calculus of kidney; Z90.49 Acquired absence of other specified parts of digestive tract
CPT/HCPCS: 76700

== ENCOUNTER 2018-08-07 16:38 | Emergency (ER) | payer MEDICARE, MEDICAID ==
[~2018-08-07] VITALS: Ht 162.6 cm; Wt 100.7 kg
[2018-08-07] MEDS ORDERED: Acetaminophen 500mg (ES) tab ORAL ONE (17:15)
--- NOTE | 2018-08-07 17:22 | Emergency Room Report ---
History of Present Illness General Chief Complaint: Lower Extremity Injury Source: Patient Present Illness HPI 67-year-old female patient presents ER complaining of right small toe pain. States that she thinks she hurt it but does not remember exactly when. Reports history of diabetes and peripheral neuropathy. Reports taking diabetes medication, states "well controlled". reports pain in toe. States that she took 2 Monarch 10s, states that she has a prescription for them for degenerative disc disease and arthritis. reports pain and swelling in toe. Denies fever, chest pain, shortness of breath. reports able to walk, states normally walks with a walker, currently has a cane in the ER. Allergies: Coded Allergies: DIAZEPAM (Verified Allergy, Mild, Itching, 10/28/15) DOBUTAMINE (Verified Allergy, Unknown, 10/28/15) MORPHINE (Verified Allergy, Unknown, 04/19/17) SOLIFENACIN (Verified Allergy, Unknown, 04/19/17) Patient History Past Medical History: see triage record Last Menstrual Period: NA Reviewed Nursing Documentation: PMH: Agreed; PSxH: Agreed Nursing Documentation-PMH Past Medical History: No History, Except For Hx Hypertension: Yes Hx Asthma: Yes Hx COPD: Yes Hx Diabetes: Yes - type 2 Hx Cancer: No Hx Gastrointestinal Problems: Yes - GERD Hx Neurological Problems: No Review of Systems All Other Systems: negative except mentioned in HPI Physical Exam Vital Signs Date Time Temp Pulse Resp B/P (MAP) Pulse Ox O2 Delivery O2 Flow Rate FiO2 08/07/18 16:50 98.3 79 18 159/80 94 Room Air 98.2 Sp02 EP Interpretation: reviewed, normal General Appearance: well appearing, no apparent distress, alert, GCS 15, non- toxic Head: normocephalic, atraumatic Eyes: bilateral eye normal inspection, bilateral eye PERRL ENT: hearing grossly normal, normal pharynx, no angioedema, normal voice, uvula midline, moist mucus membranes Neck: full range of motion Respiratory: lungs clear, normal breath sounds, no rhonchi, no respiratory distress, no accessory muscle use, no wheezing, speaking full sentences Cardiovascular #1: regular rate, rhythm, no edema Musculoskeletal: back normal, digits/nails normal, gait/station normal, normal range of motion, non-tender, swelling - mild ecchymosis, no warmth to touch, other - NVI, nail bed is intact, no subungual hematoma, no nail bed avulsion, tender - right small toe Neurologic: alert, oriented x3, responsive, motor strength/tone normal, sensory intact Skin: no rash Lymphatic: no adenopathy Medical Decision Making PA Attestation Dr. Navarrete is my supervising Physician whom patient management has been discussed with. Diagnostic Impression: Primary Impression: Toe contusion ER Course Pt. presents to the ED c/o right small toe pain. Ddx considered but are not limited to fracture, sprain, strain, contusion, dislocation. No erythema, no warmth to touch, no fever, nontoxic appearing, low suspicion for septic joint. Vital signs: are WNL, pt. is afebrile Ordered X-ray and pain medication. ER COURSE Provided with pain medication. An X-ray of the right foot shows no acute fracture per the preliminary reading. Likely contusion causing pain symptoms. Discuss results with the patient. Provided patient with copy of results. Instructed patient to followup with PCP and discuss results of report with patient, discuss need for further treatment and referral. Alexander tape was applied to the right small foot toe and foot placed in an open toe shoe and was checked afterwards by me showing good alignment and support with distal neurovascular functioning intact. patient has cane to walk with, declined crutches.. Patient instructed on RICE method: rest, ice, compression, elevation. Patient instructed on rest, ice and heat. Patient instructed to be WBAT Contact information for orthopedic urgent care provided, follow-up with urgent care if unable to followup with primary care provider and get referral to insurance claims specialist. Followup with primary care provider. Discuss referral to ortho/pain management/ PT as needed. Discuss further imaging with MRI/CT as needed. DISCHARGE: -Rx provided for Tylenol for pain symptoms. At this time pt. is stable for d/c to home. Patient is resting comfortably, in no acute distress, nontoxic appearing, talking without difficulty. Will provide printed patient care instructions, and any necessary prescriptions. Patient instructed to follow with primary care provider in 3 - 5 days and to request further follow-up as needed. Care plan and follow up instructions have been discussed with the patient prior to discharge. Take medications as directed. Patient questions asked and answered. Patient reports understanding and agreement to treatment plan. ER precautions given, patient instructed to return to ER immediately for any new or worsening of symptoms. - Please note that this Emergency Department Report was dictated using [employer] plan technology software, occasionally this can lead to erroneous entry secondary to interpretation by the dictation equipment. Other X-Ray Diagnostic Results Other X-Ray Diagnostic Results : X-Ray ordered: right foot # of Views/Limited Vs Complete: 3 View Indication: Pain EP Interpretation: Yes PA Xray: Interpretation reviewed, by supervising MD, and agrees with findings. Interpretation: no dislocation, no soft tissue swelling, no fractures Impression: No acute disease MARCUS Scribe Text Dwain Galan PA-C Last Vital Signs Date Time Temp Pulse Resp B/P (MAP) Pulse Ox O2 Delivery O2 Flow Rate FiO2 08/07/18 16:50 98.3 79 18 159/80 94 Room Air 98.2 Disposition: HOME, SELF-CARE Condition: Stable Scripts Acetaminophen* (TYLENOL EXTRA STRENGTH*) 500 Mg Tablet 500 MG ORAL Q8H PRN for Prn Headache/Temp > 101, #30 TAB 0 Refills Prov: Eliceo Galan 08/07/18 Patient Instructions: Turf Toe Additional Instructions: Patient instructed to follow up with primary care provider and discuss further referral to orthopedics/physical therapy/pain management as needed. If unable to followup with PCP, followup with orthopedic urgent care in 5-7 days , call to schedule appointment. Patient instructed on RICE method: rest, ice, compression, elevation. Patient instructed to WBAT. Take medications as directed. Patient questions asked and answered. ER precautions given, patient instructed to return to ER immediately for any new or worsening of symptoms. [facility] [address] [facility] [address] [facility], [id number] [email or web address] Eliceo Galan Aug 07, 2018 17:22
--- NOTE | 2018-08-07 17:54 | Diagnostic Imaging Report ---
EXAM: XR Right Foot Complete, 3 or More Views CLINICAL HISTORY: PAIN TECHNIQUE: Frontal, lateral and oblique views of the right foot. COMPARISON: No relevant prior studies available. FINDINGS: Bones/joints: No acute osseous abnormality. Diffuse osteopenia. No dislocation. Soft tissues: Circumferential forefoot soft tissue prominence, no retained radiopaque foreign object. IMPRESSION: 1. Circumferential forefoot soft tissue prominence, no retained radiopaque foreign object. 2. No acute osseous abnormality. 3. Diffuse osteopenia.
[2018-08-07] MEDS ORDERED: TYLENOL EXTRA500 MG ORAL (17:56)
[2018-08-07 18:01] VITALS: BP 159/80
== END 2018-08-07 18:05 | disposition home or self-care (01) ==
LOC: EMR 17:05
DX: S90.121A Contusion of right lesser toe(s) without damage to nail, initial encounter (principal); X58.XXXA Exposure to other specified factors, initial encounter; Y93.9 Activity, unspecified; Y92.89 Other specified places as the place of occurrence of the external cause; E11.42 Type 2 diabetes mellitus with diabetic polyneuropathy; I10 Essential (primary) hypertension; J45.909 Unspecified asthma, uncomplicated; K21.9 Gastro-esophageal reflux disease without esophagitis; Z79.84 Long term (current) use of oral hypoglycemic drugs
CPT/HCPCS: 99283

== ENCOUNTER 2019-02-10 17:12 | Emergency (ER) | payer MEDICARE, MEDICAID ==
[~2019-02-10] VITALS: Ht 162.6 cm; Wt 93.4 kg
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
--- NOTE | 2019-02-10 17:30 | NUR ---
ED Nurse Note: report given to CECIL Sanders and endorsed care.
[2019-02-10 17:50] VITALS: BP 167/63
[2019-02-10 18:00] LABS: BASOPHILS % (AUTO) 1.8 % (0.0-2.0); EOSINOPHILS % (AUTO) 2.9 % (0.0-3.0); HEMATOCRIT 42.2 % (37.0-47.0); HEMOGLOBIN 13.5 G/DL (12.0-16.0); LYMPHOCYTES % (AUTO) 40.2 % (20.0-45.0); MEAN CORPUSCULAR VOLUME 84 FL (80-99); MONOCYTES % (AUTO) 7.5 % (1.0-10.0); NEUTROPHILS % (AUTO) 47.6 % (45.0-75.0); PLATELET COUNT 230 K/UL (150-450); RED BLOOD COUNT 5.02 M/UL (4.20-5.40); RED CELL DISTRIBUTION WIDTH 13.8 % (11.6-14.8)
[2019-02-10] MEDS ORDERED: Isovue-300 100ml vial INJ PRN (18:00)
[2019-02-10 18:12] LABS: ANION GAP 13 mmol/L (5-15); BLOOD UREA NITROGEN 12 mg/dL (7-18); CALCIUM 9.5 MG/DL (8.5-10.1); CARBON DIOXIDE 26 MMOL/L (21-32); CHLORIDE 100 MMOL/L (98-107); CREATININE 1.3 MG/DL (0.55-1.30); INR 0.9 (0.9-1.1); POTASSIUM 4.2 MMOL/L (3.5-5.1); SODIUM 139 MMOL/L (136-145)
[2019-02-10 18:16] LABS: ALANINE AMINOTRANSFERASE 35 U/L (12-78); ALBUMIN 3.4 G/DL (3.4-5.0); ALBUMIN/GLOBULIN RATIO 0.7 (1.0-2.7); ALKALINE PHOSPHATASE 83 U/L (46-116); ASPARTATE AMINO TRANSFERASE 29 U/L (15-37); BILIRUBIN,TOTAL 0.2 MG/DL (0.2-1.0)
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
--- NOTE | 2019-02-10 18:36 | Diagnostic Imaging Report ---
Indication: Headache Technique: Contiguous 5 mm thick transaxial imaging of the head obtained in a Siemens Sensation [address] scanner. Soft tissue and bone windows generated. Automatic Exposure Control was utilized. Total Dose length Product (DLP): 1605.[address] Dose Index Volume (CTDIvol): 70.38,15.77 mGy Comparison: 05/29/2007 Findings: There is mild prominence of the ventricles, basal cisterns, and cerebral sulci consistent with atrophy. Mild, nonspecific, white matter hypoattenuation is noted throughout the brain consistent with chronic small vessel disease. There is no midline shift, edema, acute hemorrhage, mass effect, or abnormal extra-axial fluid collections. Bones and extra osseous soft tissues are unremarkable. There is no air-fluid level in the left maxillary sinus presumably due to sinusitis. Correlate clinically. Impression: No acute intracranial bleed, mass effect or edema. Mild atrophy of the brain. Nonspecific white matter hypoattenuation probably due to chronic small vessel disease. The CT scanner at [facility] is accredited by the [employer] and the scans are performed using dose optimization techniques as appropriate to a performed exam including Automatic Exposure control.
--- NOTE | 2019-02-10 18:40 | Diagnostic Imaging Report ---
Indication: Neck pain. Technique: Continuous helical imaging of the cervical spine was obtained transaxially from the skull base to the upper thoracic spine. 2-D coronal and sagittal reformatted images were obtained. Automatic Exposure Control was utilized. Total Dose length Product (DLP): 1605.[address] Dose Index Volume (CTDIvol): 70.38,15.77 mGy Comparison: None Findings: There is no acute fracture or malalignment identified. There is no soft tissue swelling identified. Moderate uncovertebral arthritis is demonstrated at multiple levels. Narrowing of the neural foramina noted at multiple levels. Some of the intervertebral discs show narrowing and osteophytes especially at C5-6 and C6-7. Bones are diffusely osteopenic. Abnormal appearance of the left maxillary sinus which is partially opacified demonstrated. Calcification of the extracranial carotid arteries noted. Impression: No acute injury Moderate spondylosis as described above Atherosclerotic disease The CT scanner at [facility] is accredited by the [employer] and the scans are performed using dose optimization techniques as appropriate to a performed exam including Automatic Exposure control.
--- NOTE | 2019-02-10 18:43 | NUR ---
ED Nurse Note: Placed returned from CT scan. Placed patient on supine. Spine precaution given.
[2019-02-10 19:00] VITALS: BP 154/58
--- NOTE | 2019-02-10 19:01 | Diagnostic Imaging Report ---
Indication: Back pain and trauma Technique: Continuous helical transaxial imaging of the thoracic spine was obtained from the lung bases to the pubic symphysis. No IV contrast was administered. Coronal 2-D reformats were also obtained. Study obtained in a Siemens sensation [address] Total Dose length Product (DLP): 1301.[address] Dose Index Volume (CTDIvol): 40.13 mGy Comparison: None Findings: Bones are osteopenic. There is no acute fracture identified. No malalignment appreciated. Vacuum phenomena and narrowing of some of the midthoracic discs noted. No definite soft tissue swelling is identified. The thyroid gland is heterogeneous, partially calcified with a small left lobe. No paravertebral or paraspinous soft tissue swelling or fluid collections are identified. Aorta is calcified. There are reticular densities within the lungs partially seen on this examination, nonspecific in nature. IMPRESSION: No acute fracture or other signs of acute injury identified. Degenerative changes of the thoracic spine as described above. Reticular densities within the lungs nonspecific Atherosclerotic disease Thyroid disease. Some breathing motion limits evaluation. The CT scanner at [facility] is accredited by the [employer] and the scans are performed using dose optimization techniques as appropriate to a performed exam including Automatic Exposure control.
--- NOTE | 2019-02-10 19:02 | Diagnostic Imaging Report ---
Indication: Back pain. Trauma Technique: Continuous helical transaxial imaging of the lumbar spine was obtained from the lung bases to the pubic symphysis. No IV contrast was administered. Coronal 2-D reformats were also obtained. Study obtained in a Siemens sensation [address] Total Dose length Product (DLP): 974.[address] Dose Index Volume (CTDIvol): 35.03 mGy Comparison: None Findings: There is no evidence of an acute fracture or malalignment. The bones are osteopenic. There is degradation of image quality due to body habitus. Height and configuration of the vertebral bodies and intervertebral discs are within normal limits. Lower lumbar facet arthropathy is present. There is no soft tissue swelling. Impression: No acute injury identified. The CT scanner at [facility] is accredited by the [employer] and the scans are performed using dose optimization techniques as appropriate to a performed exam including Automatic Exposure control.
--- NOTE | 2019-02-10 19:08 | NUR ---
ED Nurse Note: Report given to CECIL Ardon. Patient resting in bed.
--- NOTE | 2019-02-10 19:08 | Diagnostic Imaging Report ---
Indication: Abdominal pain. Trauma Technique: Continuous helical transaxial imaging of the abdomen and pelvis was obtained from the lung bases to the pubic symphysis during intravenous contrast administration. Coronal 2-D reformats were also obtained. Study obtained in a Siemens sensation [address] Automatic Exposure Control was utilized. Total Dose length Product (DLP): 938.[address] Dose Index Volume (CTDIvol): 18.84 mGy Comparison: None Findings: Minimal posterior basal atelectasis demonstrated. There is no pneumothorax or effusion. The liver is diffusely hypodense consistent with fatty infiltration. There is a small hiatal hernia. There is generalized image degradation due to body habitus. Spleen is unremarkable. The pancreas is unremarkable. Cholecystectomy noted. Major vascular structures in the abdomen enhance normally. There is no adrenal mass. There is scarring in the lateral part of the right kidney which shows a focal divot or volume loss. There are calcific densities within the right kidney consistent with nonobstructive stones. Aortoiliac calcifications are present. There is a broad-based umbilical hernia containing fat. There is no free fluid. There is no evidence of bowel obstruction. A left total hip prosthesis is present. Subcutaneous air noted in the right-sided abdominal wall. There is some heterogeneity of the uterus which may be due to underlying fibroid. This is not evaluated well on the current exam. The bladder is unremarkable. Appendix is not seen. The right femoral head is abnormally sclerotic. IMPRESSION: There is no acute injury identified on this study. Fatty liver. Status post cholecystectomy. Hiatal hernia. 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 Heterogeneous uterus. Underlying fibroid may be present. This is not evaluated well. Atherosclerotic disease. Scarring in the right kidney Nonobstructive tiny stones in the right kidney. Left Total hip replacement. The CT scanner at [facility] is accredited by the [employer] and the scans are performed using dose optimization techniques as appropriate to a performed exam including Automatic Exposure control.
[2019-02-10] MEDS ORDERED: Acetaminophen 500mg (ES) tab ORAL ONE (19:15)
[2019-02-10] MEDS ORDERED: ACETAMINOPHEN-1 EAC1 ORAL (19:25)
[2019-02-10] MEDS ORDERED: CYCLOBENZAPRINE10 MG ORAL (19:25)
[2019-02-10 19:38] VITALS: BP 154/58
--- NOTE | 2019-02-10 20:00 | NUR ---
ER Nurse Note: Pt seen, treated, medically cleared by MD for discharge. Discharge instructions and prescriptions given with repeat verberalization by pt. Instructed pt to follow up with primary care provider within one week. Pt a&ox4, VSS, no signs of distress. Called Jaspreet, son, to apple picker pt. ID band removed. IV removed, site clean and bandaged. Pt left with son and all belongings.
== END 2019-02-10 20:07 | disposition home or self-care (01) ==
LOC: EDBD 17:12 → EMR 17:25
DX: S13.4XXA Sprain of ligaments of cervical spine, initial encounter (principal); V43.62XA Car passenger injured in collision with other type car in traffic accident, initial encounter; Y92.9 Unspecified place or not applicable; I10 Essential (primary) hypertension; J44.9 Chronic obstructive pulmonary disease, unspecified; E11.9 Type 2 diabetes mellitus without complications; Z88.5 Allergy status to narcotic agent; Z88.8 Allergy status to other drugs, medicaments and biological substances; K76.0 Fatty (change of) liver, not elsewhere classified; Z90.49 Acquired absence of other specified parts of digestive tract; K44.9 Diaphragmatic hernia without obstruction or gangrene; Z96.642 Presence of left artificial hip joint
CPT/HCPCS: 36415; 70450; 72125; 72128; 72131; 74177; 80053; 85025; 85610; 85730; 93005; 99284; Q9967

== ENCOUNTER 2019-07-21 13:28 | Outpatient (CLI) | payer MEDICARE, MEDICAID ==
[~2019-07-21] VITALS: Ht 162.6 cm; Wt 100.7 kg
[~2019-07-21 13:28] MED LIST changes: +ACETAMINOPHEN-1 EAC1 ORAL
--- NOTE | 2019-07-21 13:50 | General Progress Note ---
Assessment/Plan Assessment/Plan: abd pain pud HTN kidney stones plan colonoscopy Subjective ROS Limited/Unobtainable: Yes Allergies: Coded Allergies: DIAZEPAM (Verified Allergy, Mild, Itching, 10/28/15) DOBUTAMINE (Verified Allergy, Unknown, 10/28/15) MORPHINE (Verified Allergy, Unknown, 04/19/17) SOLIFENACIN (Verified Allergy, Unknown, 04/19/17) Objective General Appearance: alert EENT: normal ENT inspection Neck: supple Cardiovascular: normal rate Respiratory/Chest: decreased breath sounds Abdomen: normal bowel sounds, non tender, soft Extremities: non-tender Reji Theodore MD Jul 21, 2019 13:50
[2019-07-21] MEDS ORDERED: OTEZLA30 MG PO (15:11)
[2019-07-21] MEDS ORDERED: INDAPAMIDE2.5 MG ORAL (15:11)
[2019-07-21] MEDS ORDERED: MAG-OXIDE400 M1 PO (15:11)
[2019-07-21] MEDS ORDERED: AVAPRO300 MG ORAL (15:11)
[2019-07-21] MEDS ORDERED: MYRBETRIQ25 MG PO (15:11)
[2019-07-21] MEDS ORDERED: CYMBALTA30 MG ORAL (15:11)
[2019-07-21 15:12] VITALS: BP 131/72
[2019-07-22] MEDS ORDERED: LANTUS SOL100 UNIT/1 SUBQ (15:35)
[2019-07-22] MEDS ORDERED: NOVOLOG (15:35)
== END 2019-07-21 15:28 | disposition home or self-care (01) ==
LOC: PAN 13:28
DX: R10.9 Unspecified abdominal pain (principal); I10 Essential (primary) hypertension; K27.9 Peptic ulcer, site unspecified, unspecified as acute or chronic, without hemorrhage or perforation; N20.0 Calculus of kidney; Z88.6 Allergy status to analgesic agent; Z88.8 Allergy status to other drugs, medicaments and biological substances
CPT/HCPCS: 99202

== ENCOUNTER 2019-07-25 08:24 | Day surgery (SDC) | payer MEDICARE, MEDICAID ==
[~2019-07-25] VITALS: Ht 162.6 cm; Wt 100.2 kg
[2019-07-25] VITALS (8 sets, daily range): BP systolic 93–132; BP diastolic 58–73
[~2019-07-25 08:24] MED LIST changes: +AVAPRO300 MG ORAL; +CYMBALTA30 MG ORAL; +INDAPAMIDE2.5 MG ORAL; +LANTUS SOL100 UNIT/1 SUBQ; +MAG-OXIDE400 M1 PO; +MYRBETRIQ25 MG PO; +Midazolam 2mg/2ml Inj ONE; +NOVOLOG
[2019-07-25] MEDS ORDERED: LR 1000ml 1,000 ML IVLG SCH (09:54)
[2019-07-25] MEDS ORDERED: Lidocaine 1% MPF 10mg/ml 5ml ONE (09:56)
[2019-07-25] MEDS ORDERED: LR 1000ml ONE (09:56)
[2019-07-25] MEDS ORDERED: Propofol 200mg/20ml IV ONE (09:56)
--- NOTE | 2019-07-25 09:57 | Pre-Procedure Note/Attestation ---
Pre-Procedure Note/Attestation Complete Prior to Procedure Planned Procedure: not applicable Procedure Narrative: colonoscopy Indications for Procedure Pre-Operative Diagnosis: screening Attestation I attest that I discussed the nature of the procedure; its benefits; risks and complications; and alternatives (and the risks and benefits of such alternatives ), prior to the procedure, with the patient (or the patient's legal brand representative). I attest that, if there was a reasonable possibility of needing a blood transfusion, the patient (or the patient's legal brand representative) was given the [facility] standardized written summary, pursuant to the [place] Blood Safety Act ([place] Health and Safety Code # 1645, as amended). I attest that I re-evaluated the patient just prior to the surgery and that there has been no change in the patient's H&P, except as documented below: Reji Theodore MD Jul 25, 2019 09:57
--- NOTE | 2019-07-25 09:58 | Short Stay Surgery H&P ---
History of Present Illness History of Present Illness Chief Complaint see office note HPI Ann-Marie Mon is a 68 year old female who was admitted on for Screening Patient History Allergies: Coded Allergies: DIAZEPAM (Verified Allergy, Mild, Itching, 10/28/15) DOBUTAMINE (Verified Allergy, Unknown, 10/28/15) MORPHINE (Verified Allergy, Unknown, 04/19/17) SOLIFENACIN (Verified Allergy, Unknown, 04/19/17) Medication History Scheduled Apremilast (Otezla), 30 MG PO BID, (Reported) Atorvastatin Calcium* (Lipitor*), 40 MG ORAL QHS, (Reported) Calcitriol (Calcitriol), 0.25 MCG PO DAILY, (Reported) Diphenhydramine Hcl* (Diphenhydramine Hcl*), 25 MG ORAL HS, (Reported) Duloxetine Hcl* (Cymbalta*), 30 MG ORAL DAILY, (Reported) Gabapentin* (Gabapentin*), 300 MG ORAL BID, (Reported) Indapamide* (Indapamide*), 2.5 MG ORAL DAILY, (Reported) Insulin Glargine (Lantus), Unknown Dose SUBQ BEDTIME, (Reported) Irbesartan* (Avapro*), 300 MG ORAL DAILY, (Reported) Magnesium Oxide (Mag-Oxide), 800 MG PO DAILY, (Reported) Metoprolol Succinate* (Metoprolol Succinate*), 25 MG ORAL DAILY, (Reported) Mirabegron (Myrbetriq), 25 MG PO DAILY, (Reported) Omeprazole (Omeprazole), 20 MG ORAL DAILY, (Reported) Miscellaneous Medications [Novolog], Unknown Dose, (Reported) Discontinued Medications Acetaminophen With Codeine (T#3) (Tylenol #3 Tab*), 1 TAB ORAL Q8H PRN for For Pain Discontinued Reason: Pt stopped taking med Acetaminophen* (Tylenol Extra Strength*), 500 MG ORAL Q8H PRN for Prn Headache/ Temp > 101 Discontinued Reason: Pt stopped taking med Alprazolam* (Xanax*), 1 MG ORAL BEDTIME, (Reported) Discontinued Reason: MD discontinued med Apremilast (Otezla), 30 MG PO BID, (Reported) Discontinued Reason: MD discontinued med Aspirin* (Aspir 81*), 325 MG ORAL DAILY Discontinued Reason: MD discontinued med Baclofen* (Baclofen*), 10 MG ORAL for Muscle Spasm, (Reported) Discontinued Reason: MD discontinued med Budesonide (Budesonide), 0.5 MG IH BID, (Reported) Discontinued Reason: MD discontinued med Clotrimazole/Betamethasone Dip (Clotrimazole-Betamethasone Crm), 15 GM TP DAILY PRN for PRN, (Reported) Discontinued Reason: Therapy completed Cyclobenzaprine Hcl* (Flexeril*), 10 MG ORAL TID PRN for Muscle Spasm Discontinued Reason: MD discontinued med Formoterol Fumarate (Perforomist), 20 MCG IH BID, (Reported) Discontinued Reason: MD discontinued med Hydrochlorothiazide* (Hydrochlorothiazide*), 25 MG ORAL DAILY, (Reported) Discontinued Reason: MD discontinued med Hydrocodone/Acetaminophen (Hydrocodon-Acetaminophn 10-325), 1 TAB ORAL Q4H PRN for For Pain, (Reported) Discontinued Reason: MD discontinued med Hydrocortisone (Hydrocortisone Cream 2.5%), 1 APPLIC TP for prn, (Reported) Discontinued Reason: MD discontinued med Lidocaine (Lidocaine), Unknown Dose TDERMAL BID, (Reported) Discontinued Reason: MD discontinued med Lisinopril (Lisinopril*), 5 MG ORAL DAILY, (Reported) Discontinued Reason: MD discontinued med Metformin Hcl* (Metformin Hcl*), 1,000 MG ORAL BID, (Reported) Discontinued Reason: MD discontinued med Naproxen* (Naproxen*), 500 MG ORAL TWICE A DAY PRN for For Pain, (Reported) Discontinued Reason: MD discontinued med Primidone* (Mysoline*), 50 MG PO QHS, (Reported) Discontinued Reason: MD discontinued med Solifenacin Succinate* (Vesicare*), 5 MG ORAL DAILY, (Reported) Discontinued Reason: MD discontinued med Warfarin Sod* (Coumadin*), 5 MG ORAL DAILY, (Reported) Discontinued Reason: MD discontinued med Physical Exam Vital Signs Last Vital Signs Date Time Temp Pulse Resp B/P (MAP) Pulse Ox O2 Delivery O2 Flow Rate FiO2 07/25/19 09:21 98.0 89 18 132/73 98 Room Air Plan Attestation Are the patient's medical conditions optimized for surgery? Reji Theodore MD Jul 25, 2019 09:58
[2019-07-25] MEDS ORDERED: Atropine Sulfate 0.4mg/ml inj IVP PRN (10:00)
[2019-07-25] MEDS ORDERED: Ketorolac 30mg Inj IV PRN ×2 (10:00)
[2019-07-25] MEDS ORDERED: fentaNYL 100 mcg/2 mL IV PRN (10:00)
[2019-07-25] MEDS ORDERED: Metoclopramide 10mg/2ml Inj IVP PRN (10:00)
[2019-07-25] MEDS ORDERED: DiphenhydrAMINE 50mg/ml Inj IVP PRN (10:00)
[2019-07-25] MEDS ORDERED: Labetalol 5mg/ml 20ml vial IV PRN (10:00)
[2019-07-25] MEDS ORDERED: Meperidine 50mg/ml Inj(FOR RIGORS ONLY) IVP PRN (10:00)
--- NOTE | 2019-07-25 10:00 | Immediate Post-Op Evaluation ---
Immediate Post-Op Evalulation Immediate Post-Op Evalulation Procedure: Colonoscopy Date of Evaluation: Jul 25, 2019 Time of Evaluation: 10:57 IV Fluids: 300 LR Blood Products: 0 Estimated Blood Loss: 3 Urinary Output: 0 Blood Pressure Systolic: 95 Blood Pressure Diastolic: 62 Pulse Rate: 84 Respiratory Rate: 16 O2 Sat by Pulse Oximetry: 97 Temperature (Fahrenheit): 97.3 Pain Score (1-10): 2 Nausea: No Vomiting: No Complications 0 Patient Status: awake, reacts, patent, none Hydration Status: adequate Micheal Hernandez MD Jul 25, 2019 10:00
--- NOTE | 2019-07-25 10:00 | Anethesia Preoperative Eval ---
Anesthesia Pre-op PMH/ROS General Date of Evaluation: Jul 25, 2019 Time of Evaluation: 09:56 Anesthesiologist: David ASA Score: ASA 3 Mallampati Score Class I : Soft palate, uvula, fauces, pillars visible Class II: Soft palate, uvula, fauces visible Class III: Soft palate, base of uvula visible Class IV: Only hard plate visible Mallampati Classification: Class III Surgeon: Arben Diagnosis: Abd Pain Surgical Procedure: Colonopscopy Anesthesia History: none Social History: current smoker Family History: no anesthesia problems Allergies: Coded Allergies: DIAZEPAM (Verified Allergy, Mild, Itching, 10/28/15) DOBUTAMINE (Verified Allergy, Unknown, 10/28/15) MORPHINE (Verified Allergy, Unknown, 04/19/17) SOLIFENACIN (Verified Allergy, Unknown, 04/19/17) Medications: see eMAR Patient NPO?: Yes Past Medical History Cardiovascular: Reports: HTN, CAD - Angina, Angioplasty X3 Pulmonary: Reports: asthma, COPD Gastrointestinal/Genitourinary: Reports: GERD, ESRD, other - GI Ulcer Endocrine: Reports: DM, hypothyroidism Hematology/Immune: Reports: anemia, DVT Other: obesity - BMI 39 PSxH Narrative: Appendectomy, Ventral Hernia, Cholecystectomy Anesthesia Pre-op Phys. Exam Physician Exam Last Vital Signs Date Time Temp Pulse Resp B/P (MAP) Pulse Ox O2 Delivery O2 Flow Rate FiO2 07/25/19 09:21 98.0 89 18 132/73 98 Room Air Constitutional: NAD Neurologic: CN 2-12 intact Cardiovascular: RRR Respiratory: CTA Gastrointestinal: S/NT/ND Airway Exam Mallampati Score: Class III MO: limited ROM: limited Teeth: missing Anesthesia Pre-op A/P Studies Pre-op Studies: EKG - LAD, Infarct Risk Assessment & Plan Assessment: ASA 3 Plan: TIVA Status Change Before Surgery: No Micheal Hernandez MD Jul 25, 2019 10:00
--- NOTE | 2019-07-25 10:02 | 48 Hour Post Anesthesia Eval ---
Post Anesthesia Evaluation Procedure: Colonoscopy Date of Evaluation: Jul 25, 2019 Time of Evaluation: 13:12 Blood Pressure Systolic: 154 0: 78 Pulse Rate: 73 Respiratory Rate: 18 Temperature (Fahrenheit): 97.6 O2 Sat by Pulse Oximetry: 97 Airway: patent Nausea: No Vomiting: No Pain Intensity: 2 Hydration Status: adequate Cardiopulmonary Status: Stable Mental Status/LOC: patient returned to baseline Follow-up Care/Observations: 0 Post-Anesthesia Complications: 0 Follow-up care needed: ready to discharge Micheal Hernandez MD Jul 25, 2019 10:02
--- NOTE | 2019-07-25 10:03 | Short Stay Surgery H&P ---
History of Present Illness History of Present Illness Chief Complaint screening colon HPI Ann-Marie Mon is a 68 year old female who was admitted on for Screening Patient History Allergies: Coded Allergies: DIAZEPAM (Verified Allergy, Mild, Itching, 10/28/15) DOBUTAMINE (Verified Allergy, Unknown, 10/28/15) MORPHINE (Verified Allergy, Unknown, 04/19/17) SOLIFENACIN (Verified Allergy, Unknown, 04/19/17) PAST MEDICAL HISTORY: (1) Abdominal pain (2) UTI (urinary tract infection) (3) Diarrhea (4) Abnormal laboratory test result (5) Hypoglycemia Medication History Scheduled Apremilast (Otezla), 30 MG PO BID, (Reported) Atorvastatin Calcium* (Lipitor*), 40 MG ORAL QHS, (Reported) Calcitriol (Calcitriol), 0.25 MCG PO DAILY, (Reported) Diphenhydramine Hcl* (Diphenhydramine Hcl*), 25 MG ORAL HS, (Reported) Duloxetine Hcl* (Cymbalta*), 30 MG ORAL DAILY, (Reported) Gabapentin* (Gabapentin*), 300 MG ORAL BID, (Reported) Indapamide* (Indapamide*), 2.5 MG ORAL DAILY, (Reported) Insulin Glargine (Lantus), Unknown Dose SUBQ BEDTIME, (Reported) Irbesartan* (Avapro*), 300 MG ORAL DAILY, (Reported) Magnesium Oxide (Mag-Oxide), 800 MG PO DAILY, (Reported) Metoprolol Succinate* (Metoprolol Succinate*), 25 MG ORAL DAILY, (Reported) Mirabegron (Myrbetriq), 25 MG PO DAILY, (Reported) Omeprazole (Omeprazole), 20 MG ORAL DAILY, (Reported) Miscellaneous Medications [Novolog], Unknown Dose, (Reported) Discontinued Medications Acetaminophen With Codeine (T#3) (Tylenol #3 Tab*), 1 TAB ORAL Q8H PRN for For Pain Discontinued Reason: Pt stopped taking med Acetaminophen* (Tylenol Extra Strength*), 500 MG ORAL Q8H PRN for Prn Headache/ Temp > 101 Discontinued Reason: Pt stopped taking med Alprazolam* (Xanax*), 1 MG ORAL BEDTIME, (Reported) Discontinued Reason: MD discontinued med Apremilast (Otezla), 30 MG PO BID, (Reported) Discontinued Reason: MD discontinued med Aspirin* (Aspir 81*), 325 MG ORAL DAILY Discontinued Reason: MD discontinued med Baclofen* (Baclofen*), 10 MG ORAL for Muscle Spasm, (Reported) Discontinued Reason: MD discontinued med Budesonide (Budesonide), 0.5 MG IH BID, (Reported) Discontinued Reason: MD discontinued med Clotrimazole/Betamethasone Dip (Clotrimazole-Betamethasone Crm), 15 GM TP DAILY PRN for PRN, (Reported) Discontinued Reason: Therapy completed Cyclobenzaprine Hcl* (Flexeril*), 10 MG ORAL TID PRN for Muscle Spasm Discontinued Reason: MD discontinued med Formoterol Fumarate (Perforomist), 20 MCG IH BID, (Reported) Discontinued Reason: MD discontinued med Hydrochlorothiazide* (Hydrochlorothiazide*), 25 MG ORAL DAILY, (Reported) Discontinued Reason: MD discontinued med Hydrocodone/Acetaminophen (Hydrocodon-Acetaminophn 10-325), 1 TAB ORAL Q4H PRN for For Pain, (Reported) Discontinued Reason: MD discontinued med Hydrocortisone (Hydrocortisone Cream 2.5%), 1 APPLIC TP for prn, (Reported) Discontinued Reason: MD discontinued med Lidocaine (Lidocaine), Unknown Dose TDERMAL BID, (Reported) Discontinued Reason: MD discontinued med Lisinopril (Lisinopril*), 5 MG ORAL DAILY, (Reported) Discontinued Reason: MD discontinued med Metformin Hcl* (Metformin Hcl*), 1,000 MG ORAL BID, (Reported) Discontinued Reason: MD discontinued med Naproxen* (Naproxen*), 500 MG ORAL TWICE A DAY PRN for For Pain, (Reported) Discontinued Reason: MD discontinued med Primidone* (Mysoline*), 50 MG PO QHS, (Reported) Discontinued Reason: MD discontinued med Solifenacin Succinate* (Vesicare*), 5 MG ORAL DAILY, (Reported) Discontinued Reason: MD discontinued med Warfarin Sod* (Coumadin*), 5 MG ORAL DAILY, (Reported) Discontinued Reason: MD discontinued med Review of Systems Cardiovascular: Reports: no symptoms Respiratory: Reports: no symptoms Skeletal: Reports: no symptoms Gastrointestinal: Reports: no symptoms Genitourinary: Reports: no symptoms Neurologic: Reports: no symptoms Physical Exam Vital Signs Last Vital Signs Date Time Temp Pulse Resp B/P (MAP) Pulse Ox O2 Delivery O2 Flow Rate FiO2 07/25/19 09:57 Room Air 07/25/19 09:21 98.0 89 18 132/73 98 Skin: normal HENT: normal Heart: normal Lungs: normal Abdomen: normal Extremities: normal Plan Plan of Care colonoscopy Attestation Are the patient's medical conditions optimized for surgery? Attestation Response: yes Reji Theodore MD Jul 25, 2019 10:03
[2019-07-25 10:21] LABS: BASOPHILS % (AUTO) 1.2 % (0.0-2.0); EOSINOPHILS % (AUTO) 1.1 % (0.0-3.0); HEMATOCRIT 43.8 % (37.0-47.0); LYMPHOCYTES % (AUTO) 27.5 % (20.0-45.0); MEAN CORPUSCULAR VOLUME 87 FL (80-99); MONOCYTES % (AUTO) 6.9 % (1.0-10.0); NEUTROPHILS % (AUTO) 63.4 % (45.0-75.0); PLATELET COUNT 283 K/UL (150-450); RED BLOOD COUNT 5.06 M/UL (4.20-5.40); RED CELL DISTRIBUTION WIDTH 12.9 % (11.6-14.8); WHITE BLOOD COUNT 7.9 K/UL (4.8-10.8)
[2019-07-25 10:29] LABS: ANION GAP 11 mmol/L (5-15); BLOOD UREA NITROGEN 10 mg/dL (7-18); CALCIUM 7.6 MG/DL (8.5-10.1); CARBON DIOXIDE 21 MMOL/L (21-32); CHLORIDE 112 MMOL/L (98-107); CREATININE 0.8 MG/DL (0.55-1.30); SODIUM 145 MMOL/L (136-145)
[2019-07-25 10:33] LABS: POTASSIUM 2.6 MMOL/L (3.5-5.1)
--- NOTE | 2019-07-25 10:39 | Endoscopy Procedure Note ---
Endoscopy Procedure Note General Indication for Procedure: screening, anemia Procedures Performed: colonoscopy Operative Findings/Diagnosis: 4 polyps Specimen: yes Pt Tolerated Procedure Well: Yes Estimated Blood Loss: none Anesthesia Anesthesiologist: ai Anesthesia: MAC Inserted Devices Implant(s) used?: No Quality Quality of Bowel Preparation: Fair Did scope reach the cecum?: Yes Was there any complications?: No GI Core Measures 50 yrs or older w/o bx or poly: No 10yrs. F/U recommended: Yes If not recommended, why?: Above average risk 18 years or older w/prev. colo: No Reji Theodore MD Jul 25, 2019 10:39
--- NOTE | 2019-07-25 15:45 | Procedure Note ---
DATE OF PROCEDURE: 07/25/2019 SURGEON: Reji Theodore M.D. PROCEDURE: Colonoscopy with snare polypectomy and biopsy. ANESTHESIA: Per Dr. Hernandez. INSTRUMENT: Olympus flexible adult colonoscope. INDICATION: Screening colonoscopy and anemia. REASON FOR PROCEDURE: The procedure, risks, benefits, and possible consequences, including hemorrhage, aspiration, perforation and infection, and alternative treatments, were explained to the patient/legal guardian by Dr. Reji Theodore and the patient/legal guardian understood and accepted these risks. PROCEDURE IN DETAIL: After informed consent was obtained, the patient was adequately sedated, first rectal exam was performed, which was normal. Then, the scope was advanced from the rectum into the cecum documented by appendix orifice, ileocecal valve, and right upper quadrant palpation. Quality of prep was fair. The patient had a large polyp in the proximal ascending colon. This polyp measured roughly about 2 cm, was removed with a piecemeal fashion. There were another two polyps, they were smaller in the transverse colon, removed with the cold biopsy forceps technique. There was another polyp in the sigmoid, measured roughly about 7 to 8 mm, removed with the snare polypectomy technique. So, total of four polyps removed. The patient had evidence of diverticulosis throughout the colon. Retroflexion of rectum showed evidence of internal hemorrhoids. The patient tolerated the procedure very well without any complication. SUMMARY OF FINDINGS: 1. Fair colonic prep. 2. Four colonic polyps removed, one of them over 2 cm. 3. Internal hemorrhoids. 4. Diverticulosis. RECOMMENDATIONS: 1. Follow up pathology. 2. If no obvious malignancy, we recommend repeat colonoscopy in one year, given this prep and multiple polyps. Reji Theodore M.D. DR: LUIS ALFREDO JOB#: [id number] CC:
--- NOTE | 2019-07-26 17:21 | Cardiology Report ---
APPROVED REPORT EKG Measurement Heart [id number] IN [id number] Normal sinus rhythm Left axis deviation Possible Anterior infarct, age undetermined Abnormal ECG
== END 2019-07-25 12:40 | disposition home or self-care (01) ==
LOC: GAS 08:24
DX: Z12.11 Encounter for screening for malignant neoplasm of colon (principal); D64.9 Anemia, unspecified; K63.5 Polyp of colon; K64.8 Other hemorrhoids; K57.90 Diverticulosis of intestine, part unspecified, without perforation or abscess without bleeding; Z88.6 Allergy status to analgesic agent; Z88.8 Allergy status to other drugs, medicaments and biological substances; Z79.899 Other long term (current) drug therapy; F17.200 Nicotine dependence, unspecified, uncomplicated; J44.9 Chronic obstructive pulmonary disease, unspecified; I25.10 Atherosclerotic heart disease of native coronary artery without angina pectoris; I13.11 Hypertensive heart and chronic kidney disease without heart failure, with stage 5 chronic kidney disease, or end stage renal disease; E11.22 Type 2 diabetes mellitus with diabetic chronic kidney disease; N18.6 End stage renal disease; E03.9 Hypothyroidism, unspecified; Z86.718 Personal history of other venous thrombosis and embolism; Z90.89 Acquired absence of other organs; Z90.49 Acquired absence of other specified parts of digestive tract; D12.2 Benign neoplasm of ascending colon; D12.5 Benign neoplasm of sigmoid colon; D12.3 Benign neoplasm of transverse colon
CPT/HCPCS: 36415; 45380; 45385; 80048; 82962; 85025; 93005; J2250; J2704; 94003; 94150; J8499